=== PATIENT | female | born 1975 | race Caucasian/White ===

== ENCOUNTER 2016-07-31 20:09 | Emergency (ER) | payer OTHER ==
[2016-07-31 20:19] VITALS: RESP 18
[2016-07-31] MEDS ORDERED: KETOROLAC 30 MG/ML 1 ML VIAL IVP STA (20:40)
[2016-07-31] MEDS ORDERED: SODIUM CHLORIDE 0.9% 1,000 ML IV STA (20:40)
--- NOTE | 2016-07-31 20:47 | ED ---
Chest Pain HPI - General Chief Complaint: Chest Pain Stated Complaint: back and chest pain Time Seen by Provider: 07/31/16 20:20 Source: patient, RN notes reviewed Mode of arrival: wheelchair Limitations: no limitations - History of Present Illness Initial Comments: Is a 40-year-old female who states she had the onset after eating tonight around 5:30 PM of some left-sided chest pain and some bilateral upper to mid back pain. She states it was sharp in nature 9-10/10 severity it did not get any worse or better with movements or positional changes she's had no cough or phlegm production fevers chills or sweats. She states she's never had this before except for a couple days ago she had a shorter period time with similar pain. This time it is related to eating. She is a remote family history of heart disease she denies any personal history of heart disease lung disease she is nonsmoker. She has no ALLERGIES to medicines last missed her period was July 22 he denies any chance being . MD Complaint: chest pain, other - Related Data Home Medications Medication Instructions Recorded Confirmed Escitalopram [Lexapro] 20 mg PO DAILY 08/24/15 07/31/16 Diclofenac Potassium [Cataflam] 50 mg PO Q8H PRN 07/31/16 07/31/16 Multivitamins, Thera [Multivitamin 1 tab PO DAILY 07/31/16 07/31/16 (formulary)] Norgestimate-Ethinyl Estradiol 1 tab PO DAILY 07/31/16 07/31/16 [Ortho Tri-Cyclen Lo Tablet] Previous Rx's Medication Instructions Recorded Orphenadrine [Norflex] 100 mg PO Q12H #7 tablet.er 07/31/16 Allergies Allergy/AdvReac Type Severity Reaction Status Date / Time No Known Allergies Allergy Verified 07/31/16 21:03 Review of Systems ROS Statement: Those systems with pertinent positive or pertinent negative responses have been documented in the HPI. ROS Other: All systems not noted in ROS Statement are negative. EKG Findings - EKG Results: EKG: interpreted by KARYNA, sinus rhythm (Normal sinus rhythm a rate of 65. Interval 198 QRS duration 88 QT/QTC of 392/47 low-voltage QRS and no acute ST-T wave changes.) Past Medical History Past Medical History: No Reported History History of Any Multi-Drug Resistant Organisms: None Reported Past Surgical History: Tonsillectomy Past Psychological History: Anxiety, Depression Smoking Status: Former smoker Past Alcohol Use History: None Reported Past Drug Use History: None Reported General Exam - General Exam Comments Initial Comments: Is a well-developed well-nourished awake alert oriented x3 female Limitations: no limitations General appearance: alert, in no apparent distress Head exam: Present: atraumatic, normocephalic, normal inspection Eye exam: Present: normal appearance, PERRL, EOMI. Absent: scleral icterus, conjunctival injection, periorbital swelling ENT exam: Present: normal exam, mucous membranes moist Neck exam: Present: normal inspection. Absent: tenderness, meningismus, lymphadenopathy Respiratory exam: Present: normal lung sounds bilaterally. Absent: respiratory distress, wheezes, rales, rhonchi, stridor Cardiovascular Exam: Present: regular rate, normal rhythm, normal heart sounds. Absent: systolic murmur, diastolic murmur, rubs, gallop, clicks GI/Abdominal exam: Present: soft, normal bowel sounds, other (Obese abdomen). Absent: distended, tenderness, guarding, rebound, rigid Extremities exam: Present: normal inspection, full ROM, normal capillary refill. Absent: tenderness, pedal edema, joint swelling, calf tenderness Back exam: Present: normal inspection Neurological exam: Present: alert, oriented X3, CN II-XII intact Psychiatric exam: Present: normal affect, normal mood Skin exam: Present: warm, dry, intact, normal color. 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 The current presentation consistent with a musculoskeletal etiology of chest pain. Patient will be discharged she does have an adequate prescription for Cataflam at home replaced also some muscle relaxers she is accompanied doctor return when necessary Disposition Clinical Impression: Chest wall syndrome, Costalchondritis Disposition: HOME SELF-CARE Condition: Good Instructions: Costochondritis (ED), Musculoskeletal Pain (ED) Prescriptions: Orphenadrine [Norflex] 100 mg PO Q12H #7 tablet.er Referrals: Whit Henry MD [Primary Care Provider] - 1-2 days
[2016-07-31 20:57] LABS: Basophils # (A) 0.1 k/uL (0-0.2); Basophils % (A) 1 %; CH 29.5; CHCM 33.9; Eosinophils # (A) 0.2 k/uL (0-0.7); Eosinophils % (A) 1 %; HCT 39.1 % (34.0-46.0); HDW 2.58; HGB 13.1 gm/dL (11.4-16.0); Luc # (Auto) 0.33; Luc % (Auto) 2; Lymphocytes % (A) 35 %; MCH 29.2 pg (25.0-35.0); MCHC 33.4 g/dL (31.0-37.0); MCV 87.4 fL (80.0-100.0); Mean Platelet Volume 6.3; Monocytes # (A) 0.6 k/uL (0-1.0); Monocytes % (A) 4 %; Neutrophils # (A) 8.3 k/uL (1.3-7.7); Neutrophils % (A) 57 %; RBC 4.48 m/uL (3.80-5.40); WBC 14.4 k/uL (3.8-10.6); WBC (Perox) 14.34
[2016-07-31 21:01] LABS: ALT 57 U/L (9-52); AST 32 U/L (14-36); Alkaline Phosphatase 68 U/L (38-126); Amylase 68 U/L (30-110); Anion Gap 13 mmol/L; Blood Urea Nitrogen 18 mg/dL (7-17); Calcium 9.8 mg/dL (8.4-10.2); Carbon Dioxide 25 mmol/L (22-30); Chloride 104 mmol/L (98-107); Glucose 91 mg/dL (74-99); Magnesium 1.9 mg/dL (1.6-2.3); Non-African American GFR(MDRD) >60 (>60 ml/min/1.73 sqM); Potassium 3.9 mmol/L (3.5-5.1); Sodium 142 mmol/L (137-145); Total Bilirubin 0.5 mg/dL (0.2-1.3); Total Protein 7.5 g/dL (6.3-8.2)
--- NOTE | 2016-07-31 21:02 | XR ---
EXAMINATION TYPE: XR chest 2V DATE OF EXAM: 07/31/2016 8:53 PM COMPARISON: NONE HISTORY: Chest pain TECHNIQUE: Frontal and lateral views of the chest are obtained. FINDINGS: Heart and mediastinum are normal. Lungs are clear. Diaphragm is normal. Bony thorax appear s normal. IMPRESSION: Normal chest
[2016-07-31 21:06] LABS: Partial Thromboplastin Time 22.3 sec (22.0-30.0)
[2016-07-31 21:10] LABS: INR 0.9 (<1.1); Prothrombin Time 9.4 sec (9.0-12.0)
[2016-07-31 21:13] LABS: Creatine Kinase 64 U/L (30-135)
[2016-07-31 21:26] LABS: Creatine Kinase MB 0.5 ng/mL (0.0-2.4); Troponin I <0.012 ng/mL (0.000-0.034)
[2016-07-31 21:36] VITALS: BP 103/61; PULSE 68; TEMP 98.2
== END 2016-07-31 21:52 | disposition home or self-care (01) ==
LOC: EC 20:09
DX: M94.0 Chondrocostal junction syndrome [Tietze] (principal); M54.9 Dorsalgia, unspecified; F32.9 Major depressive disorder, single episode, unspecified; F41.9 Anxiety disorder, unspecified; Z87.891 Personal history of nicotine dependence; Z79.3 Long term (current) use of hormonal contraceptives; Z79.899 Other long term (current) drug therapy; Z82.49 Family history of ischemic heart disease and other diseases of the circulatory system
CPT/HCPCS: 36415; 93005; 85379; 83880; 80053; 82150; 82550; 82553; 83690; 83735; 84484; 85025; 85610; 85730; 71020; 99285; 96374; 96361; J1885

== ENCOUNTER 2016-08-07 19:44 | Inpatient (IN) | payer OTHER ==
[2016-08-07 21:08] LABS: Basophils # (A) 0.1 k/uL (0-0.2); Basophils % (A) 1 %; CH 29.2; CHCM 33.4; Eosinophils # (A) 0.2 k/uL (0-0.7); Eosinophils % (A) 2 %; HCT 39.7 % (34.0-46.0); HDW 2.74; Luc # (Auto) 0.22; Luc % (Auto) 1; Lymphocytes # (A) 4.7 k/uL (1.0-4.8); Lymphocytes % (A) 31 %; MCH 28.6 pg (25.0-35.0); MCHC 32.7 g/dL (31.0-37.0); MCV 87.6 fL (80.0-100.0); Mean Platelet Volume 6.1; Monocytes # (A) 0.5 k/uL (0-1.0); Monocytes % (A) 4 %; Neutrophils # (A) 9.5 k/uL (1.3-7.7); Neutrophils % (A) 62 %; RBC 4.53 m/uL (3.80-5.40); WBC 15.3 k/uL (3.8-10.6); WBC (Perox) 15.68
[2016-08-07 21:22] LABS: Amorphous Sediment,Urine Rare /hpf; Appearance,Urine Clear (Clear); Bacteria,Urine Occasional /hpf; Bilirubin,Urine Negative (Negative); Glucose,Urine (UA) Negative (Negative); Ketones,Urine Negative (Negative); Leukocyte Esterase,Urine Small (Negative); Mucus,Urine Rare /hpf; Nitrite,Urine Negative (Negative); PH, Urine 6.5 (5.0-8.0); Particle Count 1310; Protein,Urine Negative (Negative); RBC,Urine <1 /hpf (0-5); Specific Gravity,Urine 1.006 (1.001-1.035); Squamous Epithelial Cell,Urine <1 /hpf (0-4); UA Billing (MACRO vs. MICRO) MICRO; Urobilinogen,Urine <2.0 mg/dL (<2.0); WBC,Urine 1 /hpf (0-5)
[2016-08-07 21:23] LABS: ALT 45 U/L (9-52); AST 19 U/L (14-36); Alkaline Phosphatase 69 U/L (38-126); Amylase 71 U/L (30-110); Anion Gap 9 mmol/L; Blood Urea Nitrogen 11 mg/dL (7-17); Calcium 9.6 mg/dL (8.4-10.2); Carbon Dioxide 30 mmol/L (22-30); Chloride 103 mmol/L (98-107); Glucose 87 mg/dL (74-99); Non-African American GFR(MDRD) >60 (>60 ml/min/1.73 sqM); Potassium 4.2 mmol/L (3.5-5.1); Sodium 142 mmol/L (137-145); Total Bilirubin 0.3 mg/dL (0.2-1.3)
--- NOTE | 2016-08-07 21:57 | ED ---
Abdominal Pain HPI - General Source: patient, RN notes reviewed Mode of arrival: ambulatory Limitations: no limitations <Rakel Garnica - Last Filed: 08/07/16 23:00> <Ron Parra - Last Filed: 08/07/16 23:08> - General Chief Complaint: Abdominal Pain Stated Complaint: back & rib pain Time Seen by Provider: 08/07/16 20:19 - History of Present Illness Initial Comments: Patient is a 40-year-old female chief complaint of right upper quadrant rib pain that radiates her shoulders. Patient states that she's been having this off and on over the past few weeks. She reports that she was seen in the emergency department a week ago, diagnosed with muscle spasm. She reports taking muscle relaxants and it doesn't help. Patient reports that the pain always occurs after she eats. She denies any vomiting but feels nauseated. She states she's had some diarrhea as well. Patient reports that she's never had any surgeries. (Rakel Garnica) - Related Data Home Medications Medication Instructions Recorded Confirmed Escitalopram [Lexapro] 20 mg PO DAILY 08/24/15 08/07/16 Diclofenac Potassium [Cataflam] 50 mg PO Q8H PRN 07/31/16 08/07/16 Multivitamins, Thera [Multivitamin 1 tab PO DAILY 07/31/16 08/07/16 (formulary)] Norgestimate-Ethinyl Estradiol 1 tab PO HS 07/31/16 08/07/16 [Ortho Tri-Cyclen Lo Tablet] Previous Rx's Medication Instructions Recorded Orphenadrine [Norflex] 100 mg PO Q12H #7 tablet.er 07/31/16 Allergies Allergy/AdvReac Type Severity Reaction Status Date / Time No Known Allergies Allergy Verified 08/07/16 20:17 Review of Systems ROS Other: All systems not noted in ROS Statement are negative. <Rakel Garnica - Last Filed: 08/07/16 23:00> ROS Other: All systems not noted in ROS Statement are negative. <Ron Parra - Last Filed: 08/07/16 23:08> ROS Statement: Those systems with pertinent positive or pertinent negative responses have been documented in the HPI. Past Medical History Past Medical History: No Reported History History of Any Multi-Drug Resistant Organisms: None Reported Past Surgical History: Tonsillectomy Past Psychological History: Anxiety, Depression Smoking Status: Former smoker Past Alcohol Use History: None Reported Past Drug Use History: None Reported <Rakel Garnica - Last Filed: 08/07/16 23:00> General Exam Limitations: no limitations General appearance: alert, in no apparent distress Head exam: Present: atraumatic, normocephalic, normal inspection Eye exam: Present: normal appearance, PERRL, EOMI. Absent: scleral icterus, conjunctival injection, periorbital swelling ENT exam: Present: normal exam, mucous membranes moist Neck exam: Present: normal inspection. Absent: tenderness, meningismus, lymphadenopathy Respiratory exam: Present: normal lung sounds bilaterally. Absent: respiratory distress, wheezes, rales, rhonchi, stridor Cardiovascular Exam: Present: regular rate, normal rhythm, normal heart sounds. Absent: systolic murmur, diastolic murmur, rubs, gallop, clicks GI/Abdominal exam: Present: soft, tenderness (Patient has some tenderness in the right upper quadrant. Positive Paul sign.), normal bowel sounds. Absent : distended, guarding, rebound, rigid Extremities exam: Present: normal inspection, full ROM, normal capillary refill. Absent: tenderness, pedal edema, joint swelling, calf tenderness Back exam: Present: normal inspection Neurological exam: Present: alert, oriented X3, CN II-XII intact Psychiatric exam: Present: normal affect, normal mood Skin exam: Present: warm, dry, intact, normal color. Absent: rash <Rakel Garnica - Last Filed: 08/07/16 23:00> <Ron Parra - Last Filed: 08/07/16 23:08> - General Exam Comments Initial Comments: Pleasant 32-year-old female. No distress. (Rakel Garnica) Medical Decision Making - Lab Data Result diagrams: 08/07/16 20:50 08/07/16 20:50 - Radiology Data Radiology results: report reviewed <Rakel Garnica - Last Filed: 08/07/16 23:00> - Lab Data Result diagrams: 08/07/16 20:50 08/07/16 20:50 <Ron Parra - Last Filed: 08/07/16 23:08> - Medical Decision Making Is a pleasant 40-year-old female chief complaint of intermittent right upper quadrant abdominal pain for the past 3 weeks. Patient states that occurs approximately 20 minutes after eating. She states it radiates up towards her shoulder blades. She was diagnosed with a muscle spasm but doesn't get any better with muscle relaxers. Patient states that she's felt chilled no fever. Patient's laboratory was reviewed she does have evidence of leukocytosis of 15.4. All her liver enzymes are within normal limits. Patient's right upper quadrant ultrasound did show evidence of cholelithiasis and possible clue acute cholecystitis. Patient will be started on Zosyn antibiotic. Discussed case with Dr. Parra. Patient will need to be admitted to have her gallbladder removed. (Rakel Garnica) Medical decision-making. The patient's ultrasound was positive for cholelithiasis or cholecystitis. White count 15.5. The patient was started on Zosyn. I discussed the case with Dr. Maddox on-call for Dr. Henry. Patient be admitted his service with request for surgical consultation from Dr. Ferrera. Dr. Russo was notified as he is on-call for Dr. Ferrera. Dr. Parra (Ron Parra) - Lab Data Lab Results 08/07/16 08/07/16 08/07/16 Range/Units 20:50 20:50 20:50 WBC 15.3 H (3.8-10.6) k/uL RBC 4.53 (3.80-5.40) m/uL Hgb 13.0 (11.4-16.0) gm/dL Hct 39.7 (34.0-46.0) % MCV 87.6 (80.0-100.0) fL MCH 28.6 (25.0-35.0) pg MCHC 32.7 (31.0-37.0) g/dL RDW 14.0 (11.5-15.5) % Plt Count 462 H (150-450) k/uL Neutrophils % 62 % Lymphocytes % 31 % Monocytes % 4 % Eosinophils % 2 % Basophils % 1 % Neutrophils # 9.5 H (1.3-7.7) k/uL Lymphocytes # 4.7 (1.0-4.8) k/uL Monocytes # 0.5 (0-1.0) k/uL Eosinophils # 0.2 (0-0.7) k/uL Basophils # 0.1 (0-0.2) k/uL Sodium 142 (137-145) mmol/L Potassium 4.2 (3.5-5.1) mmol/L Chloride 103 (98-107) mmol/L Carbon Dioxide 30 (22-30) mmol/L Anion Gap 9 mmol/L BUN 11 (7-17) mg/dL Creatinine 0.70 (0.52-1.04) mg/dL Est GFR (MDRD) Af Amer >60 (>60 ml/min/1.73 sqM) Est GFR (MDRD) Non-Af >60 (>60 ml/min/1.73 sqM) Glucose 87 (74-99) mg/dL Calcium 9.6 (8.4-10.2) mg/dL Total Bilirubin 0.3 (0.2-1.3) mg/dL AST 19 (14-36) U/L ALT 45 (9-52) U/L Alkaline Phosphatase 69 (38-126) U/L Total Protein 7.0 (6.3-8.2) g/dL Albumin 3.9 (3.5-5.0) g/dL Amylase 71 (30-110) U/L Lipase 80 (23-300) U/L Urine Color Urine Appearance (Clear) Urine pH (5.0-8.0) Ur Specific Beeson (1.001-1.035) Urine Protein (Negative) Urine Glucose (UA) (Negative) Urine Ketones (Negative) Urine Blood (Negative) Urine Nitrite (Negative) Urine Bilirubin (Negative) Urine Urobilinogen (<2.0) mg/dL Ur Leukocyte Esterase (Negative) Urine RBC (0-5) /hpf Urine WBC (0-5) /hpf Ur Squamous Epith Cells (0-4) /hpf Amorphous Sediment (None) /hpf Urine Bacteria (None) /hpf Urine Mucus (None) /hpf Urine HCG, Qual Not Detected (Not Detectd) 08/07/16 Range/Units 20:50 WBC (3.8-10.6) k/uL RBC (3.80-5.40) m/uL Hgb (11.4-16.0) gm/dL Hct (34.0-46.0) % MCV (80.0-100.0) fL MCH (25.0-35.0) pg MCHC (31.0-37.0) g/dL RDW (11.5-15.5) % Plt Count (150-450) k/uL Neutrophils % % Lymphocytes % % Monocytes % % Eosinophils % % Basophils % % Neutrophils # (1.3-7.7) k/uL Lymphocytes # (1.0-4.8) k/uL Monocytes # (0-1.0) k/uL Eosinophils # (0-0.7) k/uL Basophils # (0-0.2) k/uL Sodium (137-145) mmol/L Potassium (3.5-5.1) mmol/L Chloride (98-107) mmol/L Carbon Dioxide (22-30) mmol/L Anion Gap mmol/L BUN (7-17) mg/dL Creatinine (0.52-1.04) mg/dL Est GFR (MDRD) Af Amer (>60 ml/min/1.73 sqM) Est GFR (MDRD) Non-Af (>60 ml/min/1.73 sqM) Glucose (74-99) mg/dL Calcium (8.4-10.2) mg/dL Total Bilirubin (0.2-1.3) mg/dL AST (14-36) U/L ALT (9-52) U/L Alkaline Phosphatase (38-126) U/L Total Protein (6.3-8.2) g/dL Albumin (3.5-5.0) g/dL Amylase (30-110) U/L Lipase (23-300) U/L Urine Color Light Yellow Urine Appearance Clear (Clear) Urine pH 6.5 (5.0-8.0) Ur Specific Beeson 1.006 (1.001-1.035) Urine Protein Negative (Negative) Urine Glucose (UA) Negative (Negative) Urine Ketones Negative (Negative) Urine Blood Negative (Negative) Urine Nitrite Negative (Negative) Urine Bilirubin Negative (Negative) Urine Urobilinogen <2.0 (<2.0) mg/dL Ur Leukocyte Esterase Small H (Negative) Urine RBC <1 (0-5) /hpf Urine WBC 1 (0-5) /hpf Ur Squamous Epith Cells <1 (0-4) /hpf Amorphous Sediment Rare H (None) /hpf Urine Bacteria Occasional H (None) /hpf Urine Mucus Rare H (None) /hpf Urine HCG, Qual (Not Detectd) - Radiology Data Right upper quadrant ultrasound shows evidence of cholelithiasis and to correlate with possible cholecystitis. Probable fatty infiltration of the liver , hepatomegaly. Patient has 3 stones each measuring approximately 1.5 cm. Thickened gallbladder wall. Evidence is positive for Paul sign. Common bile duct was within normal limits. KUB is reviewed as negative for any acute process. (Rakel Garnica) Disposition Time of Disposition: 22:33 <Rakel Garnica - Last Filed: 08/07/16 23:00> <Ron Parra - Last Filed: 08/07/16 23:08> Clinical Impression: Acute cholecystitis Disposition: ADMITTED IP TO THIS HOSP Condition: Good Referrals: Whit Henry MD [Primary Care Provider] - 1-2 days
--- NOTE | 2016-08-07 22:02 | US ---
EXAMINATION TYPE: US gallbladder DATE OF EXAM: 08/07/2016 9:52 PM COMPARISON: NONE CLINICAL HISTORY: Pain. Epigastric pain, RUQ pain, nausea x 3 weeks. EXAM MEASUREMENTS: Liver Length: 20.3 cm Gallbladder Wall: 0.4 cm CBD: 0.3 cm Right Kidney: 12.5 x 5.2 x 5.2 cm Pancreas: visualized portions appear wnl, tail obscured by overlying bowel content Liver: enlarged and there is coarse echotexture Gallbladder: 3 stones = 1.5cm, 1.4cm, and 1.4cm with sludge. Thickened GB wall Evidence for sonographic Paul's sign: Yes CBD: visualized portion appears wnl Right Kidney: no evidence of hydronephrosis or mass IMPRESSION: Cholelithiasis, correlate for possible cholecystitis. Probable fatty infiltration of live r, hepatomegaly.
[2016-08-07] MEDS ORDERED: PIPERACILLIN-TAZOBACTAM 3.375 GM in DEXTROSE/WATER 1 50ML.BAG IVPB STA (22:12)
--- NOTE | 2016-08-07 22:23 | XR ---
EXAM: XR Abdomen, 1 View. CLINICAL HISTORY: Reason: abdominal pain TECHNIQUE: Frontal supine view of the abdomen/pelvis. COMPARISON: No relevant prior studies available. FINDINGS: Gastrointestinal tract: Mild to moderate amount of colonic stool throughout. No dilation. No free air seen. Other: Punctate inferior left pelvic calcification, most likely a phlebolith. Bones/joints: Unremarkable. IMPRESSION: No acute findings.
[2016-08-07] MEDS ORDERED: NALOXONE 0.4 MG/ML 1 ML VIAL IV PRN (22:33)
[2016-08-07] MEDS ORDERED: ACETAMINOPHEN TAB 325 MG TAB PO PRN (22:33)
[2016-08-07] MEDS ORDERED: ONDANSETRON 4 MG/2 ML VIAL IVP PRN (22:33)
[2016-08-07] MEDS ORDERED: KETOROLAC 30 MG/ML 1 ML VIAL IVP PRN (22:33)
[2016-08-07] MEDS: SODIUM CHLORIDE 0.9% 1,000 ML IV SCH (22:42)
[2016-08-07 23:55] VITALS: BMI 36.0
[2016-08-08] MEDS: PIPERACILLIN-TAZOBACTAM 3.375 GM in DEXTROSE/WATER 1 50ML.BAG IVPB SCH ×2 (08:42→16:47)
[2016-08-08] MEDS: PANTOPRAZOLE 40 MG/10 ML VIAL IV SCH (08:42)
[2016-08-08] MEDS: SODIUM CHLORIDE 0.9% 1,000 ML IV SCH ×2 (12:30→23:18)
--- NOTE | 2016-08-08 12:53 | P.HPIM ---
History of Present Illness Chief Complaint: Abdominal pain This is a 40-year-old female who presented to the emergency room with worsening right upper quadrant pain. Patient said that her pain started approximately 3 weeks ago and is being getting progressively worse. She described her pain as sharp that starts in her back and go around to her right flank and right upper quadrant area. She described her pain as sharp and 10 out of 10 in severity. Her pain is usually triggered after food and in particular greasy/fatty foods. She does report nausea but no vomiting. She is otherwise having regular bowel movements. There is no radiation for her pain. She was evaluated in the emergency room and an abdominal ultrasound showed evidence of cholelithiasis with possible cholecystitis. Patient was admitted to the hospital and is currently nothing by mouth awaiting general surgery evaluation Review of Systems Review of system: 14 points review of systems were obtained and were negative except to what were mentioned in the HPI. Past Medical History Past Medical History: No Reported History History of Any Multi-Drug Resistant Organisms: None Reported Past Surgical History: Tonsillectomy Past Anesthesia/Blood Transfusion Reactions: No Reported Reaction Past Psychological History: Anxiety, Depression Smoking Status: Former smoker Past Alcohol Use History: None Reported Past Drug Use History: None Reported - Past Family History Father Family Medical History: CVA/TIA, Diabetes Mellitus Mother Additional Family Medical History / Comment(s): HEART ARRYTHMIA Medications and Allergies Home Medications Medication Instructions Recorded Confirmed Type Escitalopram [Lexapro] 20 mg PO DAILY 08/24/15 08/07/16 History Diclofenac Potassium [Cataflam] 50 mg PO Q8H PRN 07/31/16 08/07/16 History Multivitamins, Thera [Multivitamin 1 tab PO DAILY 07/31/16 08/07/16 History (formulary)] Norgestimate-Ethinyl Estradiol 1 tab PO HS 07/31/16 08/07/16 History [Ortho Tri-Cyclen Lo Tablet] Allergies Allergy/AdvReac Type Severity Reaction Status Date / Time No Known Allergies Allergy Verified 08/07/16 20:17 Physical Exam Vitals: Vital Signs Temp Pulse Pulse Resp BP Pulse Ox 08/08/16 07:00 97.6 F 70 16 116/73 95 08/08/16 00:00 97.6 F 82 16 125/77 97 Intake and Output 08/07/16 08/08/16 08/08/16 22:59 06:59 14:59 Intake Total 600 Balance 600 Intake: Intake, IV Titration 600 Amount Sodium Chloride 0.9% 1, 600 000 ml @ 100 mls/hr IV . Q10H [facility] Rx#:[id number] Other: Weight 104.326 kg General: The patient is awake and alert, in no distress, and does not appear acutely ill. Eye: extra-ocular movements are intact; there is normal conjunctiva bilaterally. . Neck: The neck is supple, there is no tenderness or JVD. Cardiovascular: Normal S1-S2, no S3-S4, no murmurs. Respiratory: Lungs clear to auscultation bilaterally with no wheezes rhonchi or rales. Gastrointestinal: Abdomen is soft, there is tenderness to palpation in the right upper quadrant area Musculoskeletal: Normal ROM, no tenderness, There is no pedal edema. Neurological: There are no obvious motor or sensory deficits. Speech is normal. Skin: Skin is warm and dry and no rashes or lesions are noted. Results CBC & Chem 7: 08/07/16 20:50 08/07/16 20:50 Thrombosis Risk Factor Assmnt - Choose All That Apply Each Factor Represents 1 point: Minor surgery planned, Obesity (BMI >25), Oral contraceptives or hormone replacement therapy Thrombosis Risk Factor Assessment Total Risk Factor Score: 3 Thrombosis Risk Factor Assessment Level: Moderate Risk Assessment and Plan Plan: 1. Right upper quadrant pain 2. Cholelithiasis with possible cholecystitis 3. Major depressive disorder We will continue IV fluid hydration, antiemetic, and pain control. Awaiting general surgery evaluation for possible cholecystectomy either during this admission or on an elective basis. All patient's questions answered to her satisfaction.
--- NOTE | 2016-08-08 15:58 | P.GSCN ---
History of Present Illness Consult date: 08/08/16 Reason for Consult: Acute cholecystitis History of present illness: Patient over the last 3 weeks has had ongoing right upper quadrant pain with radiation of the back. This is aggravated by any types of foods at this point. Some nausea but no vomiting. Also having some diarrhea issues up to 6 times per day. Denies fevers or chills. No coffee colored urine or jaundice in this. No fevers. No history of similar events in the past. Her white blood cell count is elevated. Her liver enzymes are normal. Her ultrasound shows gallstones with a thickened gallbladder wall and a positive Paul sign. Review of Systems The patient denies any acute changes in his vision or hearing, no dysphagia or odynophagia, no chest pain or shortness of breath, no dysuria or hematuria, no headache, no runny nose, no rectal bleeding or melena, no unexplained weight loss Past Medical History Past Medical History: No Reported History History of Any Multi-Drug Resistant Organisms: None Reported Past Surgical History: Tonsillectomy Past Anesthesia/Blood Transfusion Reactions: No Reported Reaction Past Psychological History: Anxiety, Depression Smoking Status: Former smoker Past Alcohol Use History: None Reported Past Drug Use History: None Reported - Past Family History Father Family Medical History: CVA/TIA, Diabetes Mellitus Mother Additional Family Medical History / Comment(s): HEART ARRYTHMIA Medications and Allergies Home Medications Medication Instructions Recorded Confirmed Type Escitalopram [Lexapro] 20 mg PO DAILY 08/24/15 08/07/16 History Diclofenac Potassium [Cataflam] 50 mg PO Q8H PRN 07/31/16 08/07/16 History Multivitamins, Thera [Multivitamin 1 tab PO DAILY 07/31/16 08/07/16 History (formulary)] Norgestimate-Ethinyl Estradiol 1 tab PO HS 07/31/16 08/07/16 History [Ortho Tri-Cyclen Lo Tablet] Allergies Allergy/AdvReac Type Severity Reaction Status Date / Time No Known Allergies Allergy Verified 08/07/16 20:17 Surgical - Exam Vital Signs Temp Pulse Resp BP Pulse Ox 97.7 F 73 18 131/85 95 08/07/16 19:49 08/07/16 19:49 08/07/16 19:49 08/07/16 19:49 08/07/16 19:49 Physical exam: General: Well-developed, well-nourished HEENT: Normocephalic, sclerae nonicteric Abdomen: Mild right upper quadrant tenderness, nondistended Extremities: No edema Neuro: Alert and oriented Results - Labs 08/07/16 20:50 08/07/16 20:50 Assessment and Plan (1) Acute cholecystitis Narrative/Plan: Continue IV antibiotics. Will proceed with cholecystectomy. Risks of bleeding , infection, bile leak, bile duct injury, retained common bile duct stone, chronic diarrhea, persistent pain, conversion to an open procedure, and anesthesia-related complications were discussed. She understands and wishes to proceed per Status: Acute
[2016-08-08] MEDS ORDERED: HYDROmorphone 1 MG/ML 1 ML SYRINGE IVP PRN (16:29)
[2016-08-09] MEDS: PIPERACILLIN-TAZOBACTAM 3.375 GM in DEXTROSE/WATER 1 50ML.BAG IVPB SCH ×4 (00:11→23:37)
[2016-08-09] MEDS: SODIUM CHLORIDE 0.9% 1,000 ML IV SCH (06:27)
[2016-08-09 07:26] LABS: Basophils # (A) 0.1 k/uL (0-0.2); Basophils % (A) 1 %; CHCM 33.6; Eosinophils # (A) 0.2 k/uL (0-0.7); Eosinophils % (A) 2 %; HCT 35.3 % (34.0-46.0); HDW 2.86; HGB 11.9 gm/dL (11.4-16.0); Luc % (Auto) 2; Lymphocytes # (A) 3.4 k/uL (1.0-4.8); Lymphocytes % (A) 32 %; MCH 29.3 pg (25.0-35.0); MCHC 33.7 g/dL (31.0-37.0); MCV 86.8 fL (80.0-100.0); Mean Platelet Volume 6.3; Monocytes # (A) 0.3 k/uL (0-1.0); Monocytes % (A) 3 %; Neutrophils # (A) 6.2 k/uL (1.3-7.7); Neutrophils % (A) 60 %; RBC 4.07 m/uL (3.80-5.40); RDW 13.7 % (11.5-15.5); WBC 10.4 k/uL (3.8-10.6); WBC (Perox) 9.91
[2016-08-09 07:35] LABS: ALT 42 U/L (9-52); AST 19 U/L (14-36); Alkaline Phosphatase 54 U/L (38-126); Anion Gap 7 mmol/L; Blood Urea Nitrogen 10 mg/dL (7-17); Calcium 9.2 mg/dL (8.4-10.2); Carbon Dioxide 28 mmol/L (22-30); Chloride 105 mmol/L (98-107); Glucose 92 mg/dL (74-99); Non-African American GFR(MDRD) >60 (>60 ml/min/1.73 sqM); Potassium 4.2 mmol/L (3.5-5.1); Sodium 140 mmol/L (137-145); Total Bilirubin 0.8 mg/dL (0.2-1.3); Total Protein 6.4 g/dL (6.3-8.2)
[2016-08-09] MEDS: PANTOPRAZOLE 40 MG/10 ML VIAL IV SCH (08:19)
[2016-08-09] MEDS ORDERED: IV FLUID CONTINUATION 1,000 ML IV ONE (10:48)
[2016-08-09] MEDS ORDERED: ONDANSETRON 4 MG/2 ML VIAL IVP ONE (10:58)
[2016-08-09] MEDS ORDERED: DEXAMETHASONE SOD PHOSPHATE 10 MG/ML 1 ML VIAL IV ONE (11:02)
[2016-08-09] MEDS ORDERED: MIDAZOLAM 2 MG/2 ML VIAL ONE (11:25)
[2016-08-09] MEDS ORDERED: HYDROmorphone (PF) 1 MG/ML ONE (11:25)
[2016-08-09] MEDS ORDERED: LABETALOL 5 MG/ML VIAL MDV ONE (11:25)
[2016-08-09] MEDS ORDERED: ROCURONIUM BROMIDE 10 MG/ML 10 ML VIAL IV ONE (11:25)
[2016-08-09] MEDS ORDERED: fentaNYL (PF) 50 MCG/ML 2 ML AMP ONE (11:25)
[2016-08-09] MEDS ORDERED: NEOSTIGMINE 1 MG/ML 10 ML VIAL ONE (11:25)
[2016-08-09] MEDS ORDERED: LIDOCAINE 1% INJ 10MG/ML (20 ML MDV) ONE (11:25)
[2016-08-09] MEDS ORDERED: PROPOFOL 10 MG/ML 20 ML VIAL IV ONE (11:25)
[2016-08-09] MEDS ORDERED: GLYCOPYRROLATE 0.2 MG/ML 2 ML VIAL ONE (11:25)
[2016-08-09] MEDS ORDERED: SUCCINYLCHOLINE CHLORIDE 100 MG/5 ML SYR IV ONE (11:25)
[2016-08-09] MEDS ORDERED: HEPARIN SODIUM,PORCINE 5,000 UNIT/ML 1 ML VIAL SQ ONE (11:27)
[2016-08-09] MEDS ORDERED: BUPIVACAIN-EPI 0.25%-1:200,000 30 ML VIAL SQ ONE ×2 (11:56)
--- NOTE | 2016-08-09 12:53 | P.PCN ---
Date of Procedure: 08/09/16 Procedure(s) Performed: PREOPERATIVE DIAGNOSIS: Acute calculus cholecystitis POSTOPERATIVE DIAGNOSIS: Same PROCEDURE: Laparoscopic cholecystectomy SURGEON: Chantelle EBL: 25 mL ANESTHESIA: Gen. COMPLICATIONS: None OPERATIVE PROCEDURE: The patient was brought and placed on the operating room table in the supine position. The patient was placed under general anesthesia at that time. The abdomen was prepped and draped in the usual sterile fashion. A small vertical infraumbilical incision was made. The fascia was grasped with the Greg forceps. The fascia was retracted anteriorly. The Veress needle was advanced into the peritoneal cavity. The saline drop test was normal. Insufflation took place up to 15 mmHg. A 5 mm optical trocar was advanced and the peritoneal cavity. 2 additional 5 mm trochars were placed in the right upper quadrant under direct visualization. A 12 mm trocar was advanced into the epigastric incision site. The gallbladder was acutely inflamed and distended. It was still able to be grasped with our graspers without aspiration. The gallbladder was retracted superiorly and laterally. The peritoneum overlying the infundibulum was bluntly dissected. The patient's cystic duct was visualized. The junction between the cystic duct common and hepatic duct was identified. The cystic duct was then divided after placement of 3 12 mm clips on the patient's side and one on the specimen side. The cystic artery was identified and clipped as well. The patient had a fairly vascular gallbladder bed. There were 2 prominent branches of the cystic artery that were running parallel with the posterior wall the gallbladder. These were individually clipped. The gallbladder was then removed from the liver bed using electrocautery. The gallbladder was quite adherent to the liver bed. The gallbladder was then removed from the epigastric trocar site with an Endo Catch bag. The gallbladder fossa was irrigated with saline. There was no evidence of any bleeding or biliary drainage seen. The trochars were then removed. The fascia at the 12 millimeter site was closed using a running 0 Vicryl stitch. The skin at all 4 sites was closed using a 4-0 Monocryl stitch. At the end of this procedure the sponge and needle counts were correct. DISPOSITION: Stable to the recovery room
--- NOTE | 2016-08-09 14:37 | P.PN ---
Subjective patient is scheduled for OR today Objective - Vital Signs Vital signs: Vital Signs Temp 97.4 F L 08/09/16 12:53 Pulse 79 08/09/16 13:38 Resp 16 08/09/16 13:38 BP 129/76 08/09/16 13:38 Pulse Ox 93 L 08/09/16 13:38 Intake & Output 08/08/16 08/09/16 08/09/16 18:59 06:59 18:59 Intake Total 800 1400 1000 Output Total 25 Balance 800 1400 975 Intake: IV 800 1100 1000 Sodium Chloride 0.9% 1, 800 1100 000 ml @ 100 mls/hr IV . Q10H WHIT Rx#:[id number] Intake, IV Titration 100 Amount Piperacillin-Tazobactam 3 100 .375 gm In Dextrose/Water 1 50ml.bag @ 12.5 mls/hr IVPB Q8HR WHIT Rx#: [id number] Oral 200 Output: Estimated Blood Loss 25 Other: Voiding Method Toilet # Voids 2 1 - Labs CBC & Chem 7: 08/09/16 06:49 08/09/16 06:49 Labs: Abnormal Lab Results - Last 24 Hours (Table) 08/09/16 Range/Units 06:49 Albumin 3.4 L (3.5-5.0) g/dL Assessment and Plan Plan: 1. acute cholecystitis 2. Major depressive disorder We will continue IV fluid hydration, IV antibiotic,antiemetic, and pain control. patient is scheduled forlaparoscopic cholecystectomy today
[2016-08-09] MEDS: HYDROcodone/APAP 5-325MG 1 EACH TAB PO PRN ×3 (15:01→23:36)
[2016-08-10] MEDS: SODIUM CHLORIDE 0.9% 1,000 ML IV SCH ×2 (01:58→06:18)
[2016-08-10] MEDS: HYDROcodone/APAP 5-325MG 1 EACH TAB PO PRN ×2 (06:01→10:27)
[2016-08-10 07:12] VITALS: BP 112/62; PULSE 71; RESP 16; TEMP 98
[2016-08-10] MEDS: PANTOPRAZOLE 40 MG/10 ML VIAL IV SCH (08:28)
[2016-08-10] MEDS: PIPERACILLIN-TAZOBACTAM 3.375 GM in DEXTROSE/WATER 1 50ML.BAG IVPB SCH (08:28)
--- NOTE | 2016-08-10 10:05 | P.PN ---
Subjective Principal diagnosis: Acute cholecystitis Patient doing well today. Pain is much improved. She is tolerating her diet. Hoping to go home today. Objective - Vital Signs Vital signs: Vital Signs Temp 98 F 08/10/16 07:00 Pulse 71 08/10/16 07:00 Resp 16 08/10/16 07:00 BP 112/62 08/10/16 07:00 Pulse Ox 93 L 08/10/16 07:00 Intake & Output 08/09/16 08/10/16 08/10/16 18:59 06:59 18:59 Intake Total 1600 1500 Output Total 25 Balance 1575 1500 Intake: IV 1600 1100 Sodium Chloride 0.9% 1, 600 1100 000 ml @ 100 mls/hr IV . Q10H WHIT Rx#:[id number] Intake, IV Titration 50 Amount Piperacillin-Tazobactam 3 50 .375 gm In Dextrose/Water 1 50ml.bag @ 12.5 mls/hr IVPB Q8HR WHIT Rx#: [id number] Oral 350 Output: Estimated Blood Loss 25 Other: Voiding Method Toilet # Voids 1 2 - Exam Abdomen: Soft, nondistended, mild incisional tenderness, dressings intact - Labs CBC & Chem 7: 08/09/16 06:49 08/09/16 06:49 Assessment and Plan (1) Acute cholecystitis Narrative/Plan: Slowly advance diet. May discharge today from my standpoint. Follow-up in the office 1 week. Status: Acute
--- NOTE | 2016-08-10 11:56 | P.DS ---
Providers Date of admission: 08/07/16 22:44 Expected date of discharge: 08/10/16 Attending physician: Greer Maddox Consults: 08/07/16 22:51 Consult Physician Stat Consulting Provider: Domenico Lockhart Consult Reason/Comments: Acute cholecystitis Do you want consulting provider notified?: Yes, Notify in am Primary care physician: Whit Henry Hospital Course: This is a 40-year-old female who presented to the hospital originally with a right upper quadrant pain. Patient was evaluated in the emergency room and underwent an ultrasound showing evidence of cholelithiasis with cholecystitis. Patient was admitted and seen and evaluated by general surgery. She underwent laparoscopic cholecystectomy and tolerated the procedure well. On the day of discharge her pain was well-controlled. She was passing gas and tolerating oral diet with no difficulty. She will be discharged home in a stable condition. She will follow up as directed. Patient Condition at Discharge: Good Plan - Discharge Summary New Discharge Prescriptions: Hydrocodone/Acetaminophen [[place] 5-325] 1 - 2 each PO Q4HR PRN #30 tab PRN Reason: pain Discharge Medication List Escitalopram [Lexapro] 20 mg PO DAILY 08/24/15 [History] Diclofenac Potassium [Cataflam] 50 mg PO Q8H PRN 07/31/16 [History] Multivitamins, Thera [Multivitamin (formulary)] 1 tab PO DAILY 07/31/16 [History ] Norgestimate-Ethinyl Estradiol [Ortho Tri-Cyclen Lo Tablet] 1 tab PO HS [History] Orphenadrine [Norflex] 100 mg PO Q12H #7 tablet.er 07/31/16 [Rx] Hydrocodone/Acetaminophen [[place] 5-325] 1 - 2 each PO Q4HR PRN #30 tab 08/09/16 [Rx] Follow up Appointment(s)/Referral(s): Domenico Lockhart MD [Medical Doctor] - 08/17/16 1:00 pm Whit Henry MD [Primary Care Provider] - 08/12/16 1:15 pm
== END 2016-08-10 13:11 | disposition home or self-care (01) | DRG 419 ==
LOC: EC 19:44 → 3SUR 22:44
PROVIDERS: ADMIT Internal Medicine; ATTEND Internal Medicine
PROC: 0FT44ZZ Resection of Gallbladder, Percutaneous Endoscopic Approach (ICD-10-PCS; principal; 2016-08-09 11:30)
DX: K80.00 Calculus of gallbladder with acute cholecystitis without obstruction (principal); F41.9 Anxiety disorder, unspecified; F32.9 Major depressive disorder, single episode, unspecified; Z87.891 Personal history of nicotine dependence; Z79.899 Other long term (current) drug therapy
CPT/HCPCS: 36415; 74000; 76705; 80053; 81001; 81025; 82150; 83690; 85025; 88304; 96365; 99285

== ENCOUNTER 2018-05-01 08:14 | Emergency (ER) | payer OTHER ==
--- NOTE | 2018-05-01 08:33 | ED ---
General Adult HPI - General Chief complaint: Abdominal Pain Stated complaint: abd pain Source: patient Mode of arrival: ambulatory Limitations: no limitations - Related Data Home Medications Medication Instructions Recorded Confirmed Escitalopram [Lexapro] 20 mg PO HS 08/24/15 05/01/18 Alondra 24 Fe 1 tab PO HS 05/01/18 05/01/18 Allergies Allergy/AdvReac Type Severity Reaction Status Date / Time No Known Allergies Allergy Verified 05/01/18 08:57 Review of Systems ROS Statement: Those systems with pertinent positive or pertinent negative responses have been documented in the HPI. ROS Other: All systems not noted in ROS Statement are negative. Past Medical History Past Medical History: No Reported History History of Any Multi-Drug Resistant Organisms: None Reported Past Surgical History: Cholecystectomy, Tonsillectomy Past Anesthesia/Blood Transfusion Reactions: No Reported Reaction Past Psychological History: Anxiety, Depression Smoking Status: Former smoker Past Alcohol Use History: None Reported Past Drug Use History: None Reported - Past Family History Father Family Medical History: CVA/TIA, Diabetes Mellitus Mother Additional Family Medical History / Comment(s): HEART ARRYTHMIA General Exam Limitations: no limitations Course Vital Signs 05/01/18 08:16 Temperature 98.8 F Pulse Rate 78 Respiratory 18 Rate Blood Pressure 138/88 O2 Sat by Pulse 99 Oximetry Medical Decision Making - Medical Decision Making Dictation was produced using [employer] dictation software. please excuse any grammatical, word or spelling errors. Chief Complaint: 42-year-old female with months and months of pelvic pain History of Present Illness: Patient is a 42-year-old female with past medical history of obesity. She she was seen initially by her primary care physician. Her primary care physician did a Pap smear. He referred her to [facility] however they did not accept her insurance. She states she is sick of her symptoms causing her to come to the emergency department today. Patient states she's been having a lot of constitutional symptoms including fatigue, intermittent bouts of constipation and diarrhea. She reports history of cholecystectomy and tonsillectomy. She has history of ovarian cyst. The ROS documented in this emergency department record has been reviewed and confirmed by me. Those systems with pertinent positive or negative responses have been documented in the HPI. All other systems are other negative and/or noncontributory. PHYSICAL EXAM: General Impression: Alert and oriented x3, not in acute distress HEENT: Normocephalic atraumatic, extra-ocular movements intact, pupils equal and reactive to light bilaterally, mucous membranes moist. Cardiovascular: Heart regular rate and rhythm, S1&S2 audible, no murmurs, rubs or gallops Chest: Lungs clear to auscultation bilaterally, no rhonchi, no wheeze, no rales Abdomen: Bowel sounds present, abdomen soft, non-tender, non-distended, no organomegaly Musculoskeletal: Pulses present and equal in all extremities, no peripheral edema Motor: Power 5/5 bilaterally, no focal deficits noted Neurological: CN II-XII grossly intact, no focal motor or sensory deficits noted Skin: Intact with no visualized rashes Psych: Normal affect and mood ED course: 42-year-old female with chief complaint of several months of pelvic pain. Vital signs upon arrival are within acceptable limits.Laboratory evaluation obtained. CBC, metabolic panel unremarkable. Urinalysis shows 7 white blood cells. Urine sent for culture. Transvaginal ultrasound shows uterine fibroids. TB shows no acute processes. Discussed these findings with patient. Patient told to follow up with [employer]. - Lab Data Result diagrams: 05/01/18 09:27 05/01/18 09:27 Lab Results 05/01/18 05/01/18 05/01/18 Range/Units 09:27 09:27 09:27 WBC 11.7 H (3.8-10.6) k/uL RBC 4.55 (3.80-5.40) m/uL Hgb 12.3 (11.4-16.0) gm/dL Hct 37.7 (34.0-46.0) % MCV 82.9 (80.0-100.0) fL MCH 27.1 (25.0-35.0) pg MCHC 32.7 (31.0-37.0) g/dL RDW 14.7 (11.5-15.5) % Plt Count 402 (150-450) k/uL Neutrophils % 56 % Lymphocytes % 36 % Monocytes % 4 % Eosinophils % 2 % Basophils % 1 % Neutrophils # 6.6 (1.3-7.7) k/uL Lymphocytes # 4.3 (1.0-4.8) k/uL Monocytes # 0.4 (0-1.0) k/uL Eosinophils # 0.2 (0-0.7) k/uL Basophils # 0.1 (0-0.2) k/uL Sodium (137-145) mmol/L Potassium (3.5-5.1) mmol/L Chloride (98-107) mmol/L Carbon Dioxide (22-30) mmol/L Anion Gap mmol/L BUN (7-17) mg/dL Creatinine (0.52-1.04) mg/dL Est GFR (CKD-EPI)AfAm (>60 ml/min/1.73 sqM) Est GFR (CKD-EPI)NonAf (>60 ml/min/1.73 sqM) Glucose (74-99) mg/dL Calcium (8.4-10.2) mg/dL Total Bilirubin (0.2-1.3) mg/dL AST (14-36) U/L ALT (9-52) U/L Alkaline Phosphatase (38-126) U/L Total Protein (6.3-8.2) g/dL Albumin (3.5-5.0) g/dL TSH (0.465-4.680) mIU/L Urine Color Yellow Urine Appearance Cloudy H (Clear) Urine pH 5.0 (5.0-8.0) Ur Specific Diana 1.012 (1.001-1.035) Urine Protein Negative (Negative) Urine Glucose (UA) Negative (Negative) Urine Ketones Negative (Negative) Urine Blood Trace H (Negative) Urine Nitrite Negative (Negative) Urine Bilirubin Negative (Negative) Urine Urobilinogen <2.0 (<2.0) mg/dL Ur Leukocyte Esterase Large H (Negative) Urine RBC 7 H (0-5) /hpf Urine WBC 7 H (0-5) /hpf Ur Squamous Epith Cells 1 (0-4) /hpf Urine Bacteria Moderate H (None) /hpf Urine Mucus Rare H (None) /hpf Urine HCG, Qual Not Detected (Not Detectd) 05/01/18 Range/Units 09:27 WBC (3.8-10.6) k/uL RBC (3.80-5.40) m/uL Hgb (11.4-16.0) gm/dL Hct (34.0-46.0) % MCV (80.0-100.0) fL MCH (25.0-35.0) pg MCHC (31.0-37.0) g/dL RDW (11.5-15.5) % Plt Count (150-450) k/uL Neutrophils % % Lymphocytes % % Monocytes % % Eosinophils % % Basophils % % Neutrophils # (1.3-7.7) k/uL Lymphocytes # (1.0-4.8) k/uL Monocytes # (0-1.0) k/uL Eosinophils # (0-0.7) k/uL Basophils # (0-0.2) k/uL Sodium 141 (137-145) mmol/L Potassium 4.4 (3.5-5.1) mmol/L Chloride 108 H (98-107) mmol/L Carbon Dioxide 26 (22-30) mmol/L Anion Gap 7 mmol/L BUN 10 (7-17) mg/dL Creatinine 0.55 (0.52-1.04) mg/dL Est GFR (CKD-EPI)AfAm >90 (>60 ml/min/1.73 sqM) Est GFR (CKD-EPI)NonAf >90 (>60 ml/min/1.73 sqM) Glucose 92 (74-99) mg/dL Calcium 9.5 (8.4-10.2) mg/dL Total Bilirubin 0.5 (0.2-1.3) mg/dL AST 15 (14-36) U/L ALT 16 (9-52) U/L Alkaline Phosphatase 46 (38-126) U/L Total Protein 6.6 (6.3-8.2) g/dL Albumin 3.6 (3.5-5.0) g/dL TSH 3.660 (0.465-4.680) mIU/L Urine Color Urine Appearance (Clear) Urine pH (5.0-8.0) Ur Specific Diana (1.001-1.035) Urine Protein (Negative) Urine Glucose (UA) (Negative) Urine Ketones (Negative) Urine Blood (Negative) Urine Nitrite (Negative) Urine Bilirubin (Negative) Urine Urobilinogen (<2.0) mg/dL Ur Leukocyte Esterase (Negative) Urine RBC (0-5) /hpf Urine WBC (0-5) /hpf Ur Squamous Epith Cells (0-4) /hpf Urine Bacteria (None) /hpf Urine Mucus (None) /hpf Urine HCG, Qual (Not Detectd) Disposition Clinical Impression: Pelvic pain Disposition: HOME SELF-CARE Condition: Good Instructions: Pelvic Inflammatory Disease (ED) Is patient prescribed a controlled substance at d/c from ED?: No Referrals: Whit Henry MD [Primary Care Provider] - 1-2 days Time of Disposition: 13:27
[2018-05-01 10:00] LABS: Basophils # (A) 0.1 k/uL (0-0.2); Basophils % (A) 1 %; Eosinophils # (A) 0.2 k/uL (0-0.7); Eosinophils % (A) 2 %; HCT 37.7 % (34.0-46.0); HGB 12.3 gm/dL (11.4-16.0); Lymphocytes # (A) 4.3 k/uL (1.0-4.8); Lymphocytes % (A) 36 %; MCH 27.1 pg (25.0-35.0); MCHC 32.7 g/dL (31.0-37.0); MCV 82.9 fL (80.0-100.0); Monocytes # (A) 0.4 k/uL (0-1.0); Monocytes % (A) 4 %; Neutrophils # (A) 6.6 k/uL (1.3-7.7); Neutrophils % (A) 56 %; Platelet Count 402 k/uL (150-450); RBC 4.55 m/uL (3.80-5.40); RDW 14.7 % (11.5-15.5); WBC 11.7 k/uL (3.8-10.6)
[2018-05-01 10:05] LABS: Appearance,Urine Cloudy (Clear); Bacteria,Urine Moderate /hpf; Bilirubin,Urine Negative (Negative); Blood,Urine Trace (Negative); Color,Urine Yellow; Glucose,Urine (UA) Negative (Negative); Ketones,Urine Negative (Negative); Leukocyte Esterase,Urine Large (Negative); Mucus,Urine Rare /hpf; Nitrite,Urine Negative (Negative); Protein,Urine Negative (Negative); RBC,Urine 7 /hpf (0-5); Specific Gravity,Urine 1.012 (1.001-1.035); Squamous Epithelial Cell,Urine 1 /hpf (0-4); Urobilinogen,Urine <2.0 mg/dL (<2.0)
[2018-05-01 10:10] LABS: ALT 16 U/L (9-52); AST 15 U/L (14-36); Albumin 3.6 g/dL (3.5-5.0); Alkaline Phosphatase 46 U/L (38-126); Anion Gap 7 mmol/L; Blood Urea Nitrogen 10 mg/dL (7-17); Calcium 9.5 mg/dL (8.4-10.2); Carbon Dioxide 26 mmol/L (22-30); Chloride 108 mmol/L (98-107); Glucose 92 mg/dL (74-99); Potassium 4.4 mmol/L (3.5-5.1); Sodium 141 mmol/L (137-145); Total Bilirubin 0.5 mg/dL (0.2-1.3); Total Protein 6.6 g/dL (6.3-8.2)
--- NOTE | 2018-05-01 10:31 | US ---
EXAMINATION TYPE: US transvaginal DATE OF EXAM: 05/01/2018 COMPARISON: NONE CLINICAL HISTORY: Pain. pelvic pain TECHNIQUE: Transvaginal (TV). Date of LMP: 2015 EXAM MEASUREMENTS: Uterus: 7.9 x 5.1 x 6.6 cm Endometrial Stripe: 0.4 cm Right Ovary: 3.1 x 1.6 x 1.4 cm Left Ovary: 3.2 x 1.9 x 2.6 cm 1. Uterus: Anteverted bulky and heterogenous with multiple fibroids, largest measures 2.1 x 1.9 x 2.6 cm. 2. Endometrium: wnl 3. Right Ovary: wnl 4. Left Ovary: wnl Spectral, color and waveform doppler imaging shows good arterial and venous flow within the ovaries ; there is no evidence for ovarian torsion. 5. Bilateral Adnexa: wnl 6. Posterior cul-de-sac: no free fluid Limited color and spectral doppler demonstrated on left ovary due to position posterior to uterus, ap pears normal. IMPRESSION: Fibroid uterus.
--- NOTE | 2018-05-01 11:32 | XR ---
EXAMINATION TYPE: XR KUB DATE OF EXAM: 05/01/2018 11:20 AM CLINICAL HISTORY: Abdominal pain and nausea with intermittent diarrhea and constipation TECHNIQUE: Two Upright KUB images of the abdomen are obtained. COMPARISON: Abdominal x-ray August 07, 2016. FINDINGS: Scattered gas is seen in non-distended stomach as well as small and large bowel loops scatt ered throughout the abdomen and pelvis. New cholecystectomy clips are seen. There is new displaced cl ip into the left pelvis. Lung bases are clear. No pneumoperitoneum is seen. Visualized osseous struct ures are intact. IMPRESSION: Interval cholecystectomy. Persistent overall nonobstructive bowel gas pattern.
[2018-05-01 13:56] VITALS: BP 118/63; PULSE 86; RESP 16; TEMP 98.5
== END 2018-05-01 13:56 | disposition home or self-care (01) ==
LOC: EC 08:14
DX: R10.2 Pelvic and perineal pain (principal); D25.9 Leiomyoma of uterus, unspecified; R82.998 Other abnormal findings in urine; R53.83 Other fatigue; K59.00 Constipation, unspecified; R19.7 Diarrhea, unspecified; E66.9 Obesity, unspecified; F32.9 Major depressive disorder, single episode, unspecified; F41.9 Anxiety disorder, unspecified; Z87.891 Personal history of nicotine dependence; Z79.3 Long term (current) use of hormonal contraceptives; Z79.899 Other long term (current) drug therapy; Z90.49 Acquired absence of other specified parts of digestive tract; Z90.89 Acquired absence of other organs; Z68.41 Body mass index [BMI] 40.0-44.9, adult
CPT/HCPCS: 36415; 74018; 76830; 80053; 81001; 81025; 84443; 85025; 87086; 99284

== ENCOUNTER → 2018-08-20 | Outpatient (CLI) | payer OTHER ==
[2018-08-20 13:36] LABS: Basophils # (A) 0.1 k/uL (0-0.2); Basophils % (A) 1 %; Eosinophils # (A) 0.2 k/uL (0-0.7); Eosinophils % (A) 2 %; HCT 39.1 % (34.0-46.0); HGB 12.8 gm/dL (11.4-16.0); Lymphocytes # (A) 4.1 k/uL (1.0-4.8); Lymphocytes % (A) 36 %; MCH 27.7 pg (25.0-35.0); MCHC 32.7 g/dL (31.0-37.0); MCV 84.8 fL (80.0-100.0); Mean Platelet Volume 6.5; Monocytes # (A) 0.4 k/uL (0-1.0); Monocytes % (A) 4 %; Neutrophils # (A) 6.4 k/uL (1.3-7.7); Neutrophils % (A) 56 %; Platelet Count 438 k/uL (150-450); RBC 4.61 m/uL (3.80-5.40); RDW 14.3 % (11.5-15.5); WBC 11.4 k/uL (3.8-10.6)
== END | disposition home or self-care (01) ==
LOC: LABPAT 12:53
PROVIDERS: ATTEND Obstetrics & Gynecology
DX: Z01.812 Encounter for preprocedural laboratory examination (principal)
CPT/HCPCS: 36415; 85025

== ENCOUNTER → 2018-08-30 | Day surgery (SDC) | payer OTHER ==
[2018-08-27 14:53] VITALS: BMI 43.0
[~2018-08-30] MED LIST: ACETAMINOPHEN IV (For NPO) 1,000 MG/100 ML VIAL ONE; BUPIVACAINE (PF) 0.5% 30 ML VIAL SQ ONE; DEXAMETHASONE SOD PHOSPHATE 10 MG/ML 1 ML VIAL IV ONE; GLYCOPYRROLATE 0.2 MG/ML 2 ML VIAL ONE; KETOROLAC 30 MG/ML 1 ML VIAL ONE; LACTATED RINGERS 1,000 ML IV ONE; LACTATED RINGERS 1,000 ML IV SCH; LIDOCAINE 1% 20 ML VIAL (10MG/ML) FOR IV START INTRADERMA PRN; LIDOCAINE 1% INJ 10MG/ML (20 ML MDV) ONE; MIDAZOLAM 2 MG/2 ML VIAL ONE; NEOSTIGMINE 1 MG/ML 10 ML VIAL ONE; ONDANSETRON 4 MG/2 ML VIAL IVP ONE; PROPOFOL 10 MG/ML 20 ML VIAL IV ONE; Pre Op ABX Message 1 EACH MISC MISCELLANE ONE; ROCURONIUM BROMIDE 10 MG/ML 10 ML VIAL IV ONE; SCOPOLAMINE 1.5MG/72HR PATCH TRANSDERM ONE; SUCCINYLCHOLINE CHLORIDE 100 MG/5 ML SYR IV ONE; diphenhydrAMINE 50 MG/ML 1 ML VIAL ONE; ePHEDrine SULFATE/0.9% NACL/PF 50 MG/5 ML SYRINGE IV ONE; fentaNYL (PF) 50 MCG/ML 2 ML AMP ONE
--- NOTE | 2018-08-30 07:46 | P.HPOB ---
History of Present Illness H&P Date: 08/30/18 Chief Complaint: menorrhagia, family planning 42 year old presents for D&C, hysteroscopy and endometrial ablation with novasure and laparoscopic tubal ligation. Review of Systems All systems: negative Constitutional: Denies chills, Denies fever Eyes: denies blurred vision, denies pain Ears, nose, mouth and throat: Denies headache, Denies sore throat Cardiovascular: Denies chest pain, Denies shortness of breath Respiratory: Denies cough Gastrointestinal: Denies abdominal pain, Denies diarrhea, Denies nausea, Denies vomiting Genitourinary: Denies dysuria, Denies hematuria Musculoskeletal: Denies myalgias Integumentary: Denies pruritus, Denies rash Neurological: Denies numbness, Denies weakness Psychiatric: Denies anxiety, Denies depression Endocrine: Denies fatigue, Denies weight change Past Medical History Past Medical History: No Reported History History of Any Multi-Drug Resistant Organisms: None Reported Past Surgical History: Cholecystectomy, Tonsillectomy Past Anesthesia/Blood Transfusion Reactions: No Reported Reaction Additional Past Anesthesia/Blood Transfusion Reaction / Comment(s): was given nausea medication last time she had surgery and she broke out in hives-unsure of what the med was Smoking Status: Former smoker Past Alcohol Use History: None Reported Past Drug Use History: None Reported - Past Family History Father Family Medical History: CVA/TIA, Diabetes Mellitus Mother Additional Family Medical History / Comment(s): HEART ARRYTHMIA Medications and Allergies Home Medications Medication Instructions Recorded Confirmed Type Escitalopram [Lexapro] 20 mg PO HS 08/24/15 08/30/18 History Allergies Allergy/AdvReac Type Severity Reaction Status Date / Time No Known Allergies Allergy Verified 08/30/18 06:57 Exam Osteopathic Statement: *. No significant issues noted on an osteopathic structural exam other than those noted in the History and Physical/Consult. Vital Signs Temp Pulse Resp BP Pulse Ox 08/30/18 07:20 98.1 F 87 16 127/63 97 Intake and Output 08/29/18 08/30/18 08/30/18 22:59 06:59 14:59 Other: Weight 125.5 kg Heart: RRR Lungs: CTAB Abdomen: soft, nontender Extremeties: neg juarez's Assessment and Plan (1) Menorrhagia Current Visit: Yes Status: Acute Code(s): N92.0 - EXCESSIVE AND FREQUENT MENSTRUATION WITH REGULAR CYCLE SNOMED Code(s): 335062225 (2) Family planning Current Visit: Yes Status: Acute Code(s): Z30.09 - ENCOUNTER FOR OT GENERAL CNSL AND ADVICE ON CONTRACEPTION SNOMED Code(s): 208602788 Plan: 1. D&C, hysteroscopy, endometrial ablation with novasure and laparoscopic tubal ligation
[2018-08-30 09:15] VITALS: TEMP 96.9
--- NOTE | 2018-08-30 09:20 | P.OP ---
Date of Procedure: 08/30/18 Preoperative Diagnosis: 1. Menorrhagia 2. Family planning Postoperative Diagnosis: 1. Menorrhagia 2. Family planning Procedure(s) Performed: D&C, hysteroscopy, endometrial ablation with NovaSure and laparoscopic tubal ligation Anesthesia: VINNY Surgeon: Mabel Garcia Estimated Blood Loss (ml): 5 IV fluids (ml): 800 Urine output (ml): 20 Pathology: other (Endometrial curettings) Condition: stable Disposition: PACU Operative Findings: Hysteroscopy revealed a uterine septum, cavity length was 5cm cavity width was 4 cm time of ablation was 37 seconds at 120 W. Laparoscopy revealed some scarring in the posterior cul-de-sac, bilateral fallopian tubes were scarred to the posterior part of the uterus. Description of Procedure: Patient is taken the operating room where general anesthesia was obtained without difficulty. She was prepped and draped in normal sterile fashion dorsal lithotomy position, legs placed in the candy cane stirrups. Bladder was drained of all urine. Weighted speculum placed in the vagina and the anterior lip the cervix was grasped with serial tooth tenaculum. The uterus sounded to 8 cm and the cervix under 3 cm making the cavity length 5 cm. The cervix was dilated to #8 Hegar dilator with some difficulty in visualization. Hysteroscopy was then performed. Both ostia were visualized as well as the uterine septum at the fundus. Sharp curet was then gently used to obtain endometrial curettings. The NovaSure was introduced into the uterus with a cavity length of 5 cm, width 4 cm. after cavity assessment was passed, the time of ablation was 37 seconds at 120 W. Hysteroscopy was again performed and adequate ablation was noted. The kroner manipulator was placed. Attention was then turned to the abdomen and gloves were changed. A 10 mm infraumbilical incision was made the scalpel and 10 mm optical trocar was placed under direct visualization. A 5 mm suprapubic Incision was made and a 5 mm optical trocar was placed under direct visualization. Survey of the pelvis revealed normal-appearing uterus with scarring in the posterior cul-de-sac that made it difficult to mobilize the bowel. I was unable to visualize the fallopian tubes without traction on the omentum and bowel so a third port was placed in the right lower quadrant. A 5 mm incision was made and a 5 mm trocar was placed under direct visualization. I then had my assistant refinery operator used the suction ironmolder to hold the bowel out of the way well I fulgurated the left fallopian tube with the Kleppinger and the ampullar portion. My assistant refinery operator then helped to scoop the omentum and bowel out of the way to the other side dissected clearly visualize the right fallopian tube. The right fallopian tube was grasped with a Kleppinger and fulgurated 2- 3 cm in the ampullar portion. All instruments were then removed from the abdomen and vagina. The 10 mm infraumbilical incision was closed with 0 Vicryl and the fascial layer and then 4-0 Vicryl in a subcuticular fashion. The 5 mm incisions were closed with 4-0 Vicryl in a subcuticular fashion. Patient tolerated procedure well, sponge and instrument counts correct 2 and she was taken to recovery room in stable condition.
[2018-08-30] MEDS: HYDROmorphone 0.5 MG/0.5 ML SYRINGE IVP PRN ×2 (09:35→09:40)
[2018-08-30 10:47] VITALS: BP 121/80; PULSE 86; RESP 18
== END | disposition home or self-care (01) ==
LOC: OR 06:33
PROVIDERS: ATTEND Obstetrics & Gynecology
DX: N92.0 Excessive and frequent menstruation with regular cycle (principal); Z30.2 Encounter for sterilization; Z90.49 Acquired absence of other specified parts of digestive tract; Z87.891 Personal history of nicotine dependence; F32.9 Major depressive disorder, single episode, unspecified; E66.01 Morbid (severe) obesity due to excess calories; Z68.41 Body mass index [BMI] 40.0-44.9, adult; Z79.899 Other long term (current) drug therapy
CPT/HCPCS: 81025; 88305; 58563; 58670; J2250; J1200; J1100; J2710; J2405; J2001; J3010; J1885; J0131; J0330; J2704; J1170

== ENCOUNTER → 2018-09-03 | Outpatient (CLI) | payer OTHER ==
--- NOTE | 2018-09-04 09:05 | MM ---
Reason for exam: screening (asymptomatic). Baseline mammogram. History: Patient is nulliparous. Took hormonal contraceptives beginning at age 38. Physical Findings: Nurse did not find any significant physical abnormalities on exam. MG 3D Screening Mammo W/Cad Bilateral CC and MLO view(s) were taken. There are scattered fibroglandular densities. No significant findings. These results were verbally communicated with the patient and result sheet given to the patient on 09/03/18. ASSESSMENT: Benign, BI-RAD 2 RECOMMENDATION: Routine screening mammogram of both breasts in 1 year.
== END | disposition home or self-care (01) ==
LOC: RADMAMWWP 09:21
PROVIDERS: ATTEND Obstetrics & Gynecology
DX: Z12.31 Encounter for screening mammogram for malignant neoplasm of breast (principal)
CPT/HCPCS: 77063; 77067

== ENCOUNTER 2019-05-21 00:04 | Emergency (ER) | payer BC, OTHER ==
[2019-05-21] MEDS ORDERED: IBUPROFEN 400 MG TAB PO STA (01:01)
--- NOTE | 2019-05-21 01:38 | ED ---
ENT HPI - General Chief complaint: ENT Stated complaint: Earache Time Seen by Provider: 05/21/19 00:27 Source: patient, family Mode of arrival: ambulatory Limitations: no limitations - History of Present Illness Initial comments: This patient is a 43-year-old woman who presents to be evaluated for a constellation of symptoms that includes right ear pain, nasal congestion, eye irritation, cough, fevers, and body aches. The patient states that her symptoms initially began 8 days ago when she noticed some rhinorrhea and some right eye irritation. She states that the following day the right eye had some redness. She also was experiencing some right ear pressure. She went to the urgent care and was started on tobramycin drops and amoxicillin for the ear. She states that she has been taking these going on 6 days now and she has not expressed any improvement. In addition, she has been having intermittent fevers, body aches, and a cough. She presents to be evaluated because she felt she should be getting better with the medications. MD complaint: sore throat, ear pain, other (Cough and body aches) Onset/Timin -: days(s) Location: R ear, throat Quality: dull Consistency: constant Improves with: none Worsens with: none Associated Symptoms: fever, cough, sore throat, rhinorrhea - Related Data Home Medications Medication Instructions Recorded Confirmed Escitalopram [Lexapro] 20 mg PO HS 08/24/15 08/30/18 Previous Rx's Medication Instructions Recorded HYDROcodone/APAP 5-325MG [Herod 1 - 2 tab PO Q6HR PRN #20 tab 08/30/18 5-325] Ibuprofen [Motrin] 600 mg PO Q6HR PRN #30 tab 08/30/18 Oseltamivir [Tamiflu] 75 mg PO Q12HR #10 cap 05/21/19 Allergies Allergy/AdvReac Type Severity Reaction Status Date / Time No Known Allergies Allergy Verified 05/21/19 00:12 Review of Systems ROS Statement: Those systems with pertinent positive or pertinent negative responses have been documented in the HPI. ROS Other: All systems not noted in ROS Statement are negative. Constitutional: Reports: fever, chills. Denies: weakness Eyes: Reports: as per HPI, eye pain, eye discharge. Denies: vision change ENT: Reports: as per HPI, ear pain, throat pain, congestion Respiratory: Reports: cough. Denies: dyspnea, hemoptysis Cardiovascular: Denies: chest pain, palpitations Gastrointestinal: Denies: abdominal pain, vomiting, diarrhea Genitourinary: Denies: dysuria, hematuria Musculoskeletal: Reports: myalgia. Denies: back pain Skin: Denies: rash Neurological: Denies: headache, weakness, numbness Past Medical History Past Medical History: No Reported History Additional Past Medical History / Comment(s): depresion, anxiety History of Any Multi-Drug Resistant Organisms: None Reported Past Surgical History: Cholecystectomy, Tonsillectomy, Tubal Ligation Past Anesthesia/Blood Transfusion Reactions: No Reported Reaction Past Psychological History: Anxiety, Depression Smoking Status: Former smoker Past Alcohol Use History: None Reported Past Drug Use History: None Reported - Past Family History Father Family Medical History: CVA/TIA, Diabetes Mellitus Mother Additional Family Medical History / Comment(s): HEART ARRYTHMIA General Exam Limitations: no limitations General appearance: alert, in no apparent distress Head exam: Present: atraumatic, normocephalic Eye exam: Present: normal appearance. Absent: scleral icterus, conjunctival injection ENT exam: Present: normal oropharynx. Absent: TM's normal bilaterally (Right tympanic membrane does have an effusion.) Neck exam: Present: normal inspection, full ROM, lymphadenopathy. Absent: meningismus Respiratory exam: Present: normal lung sounds bilaterally. Absent: respiratory distress, wheezes, rales, rhonchi, stridor Cardiovascular Exam: Present: regular rate, normal rhythm, normal heart sounds. Absent: systolic murmur, diastolic murmur, rubs, gallop GI/Abdominal exam: Present: soft. Absent: tenderness Neurological exam: Present: alert Skin exam: Present: warm, dry, intact, normal color. Absent: rash Course Vital Signs 05/21/19 00:08 Temperature 101 F H Pulse Rate 111 H Respiratory 24 Rate Blood Pressure 125/83 O2 Sat by Pulse 94 L Oximetry Medical Decision Making - Lab Data Lab Results 05/21/19 Range/Units 00:14 Influenza Type A RNA Detected H (Not Detectd) Influenza Type B (PCR) Not Detected (Not Detectd) Disposition Clinical Impression: Influenza A Disposition: HOME SELF-CARE Condition: Fair Instructions (If sedation given, give patient instructions): Influenza (ED), Earache (ED) Prescriptions: Oseltamivir [Tamiflu] 75 mg PO Q12HR #10 cap Is patient prescribed a controlled substance at d/c from ED?: No Referrals: Whit Henry MD [Primary Care Provider] - 1-2 days
[2019-05-21 02:00] VITALS: BP 123/74; PULSE 103; RESP 19; TEMP 99.5
== END 2019-05-21 02:00 | disposition home or self-care (01) ==
LOC: EC 00:04
DX: J10.1 Influenza due to other identified influenza virus with other respiratory manifestations (principal); F41.9 Anxiety disorder, unspecified; F32.9 Major depressive disorder, single episode, unspecified; H92.01 Otalgia, right ear; Z79.899 Other long term (current) drug therapy; Z87.891 Personal history of nicotine dependence
CPT/HCPCS: 87502; 99283

== ENCOUNTER 2019-08-14 02:39 | Emergency (ER) | payer BC ==
[2019-08-14 02:53] VITALS: RESP 18; TEMP 98.6
[2019-08-14] MEDS ORDERED: MORPHINE SULFATE 4 MG/ML SYRINGE IV STA (03:09)
[2019-08-14] MEDS ORDERED: SODIUM CHLORIDE 0.9% 500 ML 500 ML IV STA (03:09)
--- NOTE | 2019-08-14 03:15 | ED ---
General Adult HPI - General Chief complaint: Abdominal Pain Stated complaint: pelvic pain Time Seen by Provider: 08/14/19 02:40 Source: patient, RN notes reviewed, old records reviewed Mode of arrival: ambulatory - History of Present Illness Initial comments: 43-year-old female presenting for evaluation of lower right-sided abdominal pain. Patient states pain is been present for the past 3 days. It has worsened over this time course. Initially was intermittent but has become more constant. She states the pain is in her right lower abdomen and pelvis and right flank. She has previous history of cholecystectomy. She denies fever or chills. Denies nausea or vomiting. Denies upper abdominal pain. Denies diarrhea or constipation. Denies dysuria or hematuria. Denies vaginal bleeding or vaginal discharge. No concern for STDs. - Related Data Home Medications Medication Instructions Recorded Confirmed Escitalopram [Lexapro] 20 mg PO HS 08/24/15 08/30/18 Previous Rx's Medication Instructions Recorded HYDROcodone/APAP 5-325MG [[place] 1 - 2 tab PO Q6HR PRN #20 tab 08/30/18 5-325] Ibuprofen [Motrin] 600 mg PO Q6HR PRN #30 tab 08/30/18 Oseltamivir [Tamiflu] 75 mg PO Q12HR #10 cap 05/21/19 Allergies Allergy/AdvReac Type Severity Reaction Status Date / Time No Known Allergies Allergy Verified 08/14/19 02:54 Review of Systems ROS Statement: Those systems with pertinent positive or pertinent negative responses have been documented in the HPI. ROS Other: All systems not noted in ROS Statement are negative. Past Medical History Past Medical History: No Reported History Additional Past Medical History / Comment(s): depresion, anxiety History of Any Multi-Drug Resistant Organisms: None Reported Past Surgical History: Cholecystectomy, Tonsillectomy, Tubal Ligation Past Anesthesia/Blood Transfusion Reactions: No Reported Reaction Past Psychological History: Anxiety, Depression Smoking Status: Former smoker Past Alcohol Use History: None Reported Past Drug Use History: None Reported - Past Family History Father Family Medical History: CVA/TIA, Diabetes Mellitus Mother Additional Family Medical History / Comment(s): HEART ARRYTHMIA General Exam General appearance: alert, in no apparent distress Head exam: Present: atraumatic, normocephalic Eye exam: Present: normal appearance, PERRL ENT exam: Present: normal exam Neck exam: Present: normal inspection. Absent: tenderness, meningismus Respiratory exam: Present: normal lung sounds bilaterally. Absent: respiratory distress, wheezes Cardiovascular Exam: Present: regular rate, normal rhythm GI/Abdominal exam: Present: soft, tenderness (Minimal right lower quadrant tenderness to palpation). Absent: distended, guarding Extremities exam: Present: normal inspection, normal capillary refill. Absent: pedal edema Neurological exam: Present: alert, oriented X3, CN II-XII intact Psychiatric exam: Present: normal affect, normal mood Skin exam: Present: warm, dry, intact. Absent: cyanosis, diaphoretic Course Vital Signs 08/14/19 08/14/19 02:51 04:09 Temperature 98.6 F Pulse Rate 90 72 Respiratory 18 18 Rate Blood Pressure 186/105 120/69 O2 Sat by Pulse 98 96 Oximetry Medical Decision Making - Medical Decision Making 43-year-old female with 3 days of right lower quadrant abdominal pain. Pain is radiating to the right flank. There is concern for both kidney stone, as well as appendicitis. Patient does not have a surgical abdomen, minimal tenderness on exam. Hypotensive initially which I suspect is predominantly secondary to pain and this improves with treatment of pain. Normal blood pressure on reevaluation. Patient has mild leukocytosis 12.5, stable he will, normal electrolytes urinalysis showing rare bacteria and 4 white cells. KUB is negative for obstruction or intraperitoneal free air. Did obtain a CT of the abdomen and pelvis that only shows a right adrenal mass, patient is informed of this and she will follow closely with her primary care physician Dr. Henry regarding this incidental finding. Appendix is not visualized but there is no secondary signs of appendicitis. No other acute findings on CT. On reevaluation she is feeling better. We discussed close return parameters. She will take Motrin for pain and will return with any worsening or changing symptoms, development of fever vomiting or worsening pain. She will follow-up with her primary care physician and her [facility]. - Lab Data Result diagrams: 08/14/19 03:30 08/14/19 03:30 Lab Results 08/14/19 08/14/19 08/14/19 Range/Units 02:55 02:55 03:30 WBC 12.5 H (3.8-10.6) k/uL RBC 4.47 (3.80-5.40) m/uL Hgb 12.9 (11.4-16.0) gm/dL Hct 38.8 (34.0-46.0) % MCV 86.8 (80.0-100.0) fL MCH 28.8 (25.0-35.0) pg MCHC 33.2 (31.0-37.0) g/dL RDW 14.0 (11.5-15.5) % Plt Count 351 (150-450) k/uL Neutrophils % 61 % Lymphocytes % 32 % Monocytes % 4 % Eosinophils % 2 % Basophils % 1 % Neutrophils # 7.6 (1.3-7.7) k/uL Lymphocytes # 4.0 (1.0-4.8) k/uL Monocytes # 0.5 (0-1.0) k/uL Eosinophils # 0.3 (0-0.7) k/uL Basophils # 0.1 (0-0.2) k/uL PT (9.0-12.0) sec INR (<1.2) APTT (22.0-30.0) sec Sodium (137-145) mmol/L Potassium (3.5-5.1) mmol/L Chloride (98-107) mmol/L Carbon Dioxide (22-30) mmol/L Anion Gap mmol/L BUN (7-17) mg/dL Creatinine (0.52-1.04) mg/dL Est GFR (CKD-EPI)AfAm (>60 ml/min/1.73 sqM) Est GFR (CKD-EPI)NonAf (>60 ml/min/1.73 sqM) Glucose (74-99) mg/dL Plasma Lactic Acid Blake (0.7-2.0) mmol/L Calcium (8.4-10.2) mg/dL Total Bilirubin (0.2-1.3) mg/dL AST (14-36) U/L ALT (4-34) U/L Alkaline Phosphatase (38-126) U/L Total Protein (6.3-8.2) g/dL Albumin (3.5-5.0) g/dL Amylase (30-110) U/L Lipase (23-300) U/L Urine Color Yellow Urine Appearance Cloudy H (Clear) Urine pH 6.5 (5.0-8.0) Ur Specific [place] 1.019 (1.001-1.035) Urine Protein Negative (Negative) Urine Glucose (UA) Negative (Negative) Urine Ketones Negative (Negative) Urine Blood Small H (Negative) Urine Nitrite Negative (Negative) Urine Bilirubin Negative (Negative) Urine Urobilinogen <2.0 (<2.0) mg/dL Ur Leukocyte Esterase Moderate H (Negative) Urine RBC 1 (0-5) /hpf Urine WBC 4 (0-5) /hpf Ur Squamous Epith Cells 4 (0-4) /hpf Urine Bacteria Rare H (None) /hpf Urine Mucus Occasional H (None) /hpf Urine HCG, Qual Not Detected (Not Detectd) 08/14/19 08/14/19 08/14/19 Range/Units 03:30 03:30 03:30 WBC (3.8-10.6) k/uL RBC (3.80-5.40) m/uL Hgb (11.4-16.0) gm/dL Hct (34.0-46.0) % MCV (80.0-100.0) fL MCH (25.0-35.0) pg MCHC (31.0-37.0) g/dL RDW (11.5-15.5) % Plt Count (150-450) k/uL Neutrophils % % Lymphocytes % % Monocytes % % Eosinophils % % Basophils % % Neutrophils # (1.3-7.7) k/uL Lymphocytes # (1.0-4.8) k/uL Monocytes # (0-1.0) k/uL Eosinophils # (0-0.7) k/uL Basophils # (0-0.2) k/uL PT 9.4 (9.0-12.0) sec INR 0.9 (<1.2) APTT 23.0 (22.0-30.0) sec Sodium 137 (137-145) mmol/L Potassium 4.4 (3.5-5.1) mmol/L Chloride 104 (98-107) mmol/L Carbon Dioxide 26 (22-30) mmol/L Anion Gap 7 mmol/L BUN 11 (7-17) mg/dL Creatinine 0.62 (0.52-1.04) mg/dL Est GFR (CKD-EPI)AfAm >90 (>60 ml/min/1.73 sqM) Est GFR (CKD-EPI)NonAf >90 (>60 ml/min/1.73 sqM) Glucose 107 H (74-99) mg/dL Plasma Lactic Acid Blake 1.2 (0.7-2.0) mmol/L Calcium 9.1 (8.4-10.2) mg/dL Total Bilirubin 0.4 (0.2-1.3) mg/dL AST 21 (14-36) U/L ALT 15 (4-34) U/L Alkaline Phosphatase 79 (38-126) U/L Total Protein 7.1 (6.3-8.2) g/dL Albumin 3.8 (3.5-5.0) g/dL Amylase 46 (30-110) U/L Lipase 41 (23-300) U/L Urine Color Urine Appearance (Clear) Urine pH (5.0-8.0) Ur Specific [place] (1.001-1.035) Urine Protein (Negative) Urine Glucose (UA) (Negative) Urine Ketones (Negative) Urine Blood (Negative) Urine Nitrite (Negative) Urine Bilirubin (Negative) Urine Urobilinogen (<2.0) mg/dL Ur Leukocyte Esterase (Negative) Urine RBC (0-5) /hpf Urine WBC (0-5) /hpf Ur Squamous Epith Cells (0-4) /hpf Urine Bacteria (None) /hpf Urine Mucus (None) /hpf Urine HCG, Qual (Not Detectd) Disposition Clinical Impression: Abdominal pain Disposition: HOME SELF-CARE Condition: Good Instructions (If sedation given, give patient instructions): Abdominal Pain (ED) Additional Instructions: Please return with worsening or changing symptoms. Please follow up with Dr. Henry regarding the CT findings on your adrenal gland. Is patient prescribed a controlled substance at d/c from ED?: No Referrals: Whit Henry MD [Primary Care Provider] - 1-2 days Time of Disposition: 04:42
[2019-08-14 03:21] LABS: Appearance,Urine Cloudy (Clear); Bacteria,Urine Rare /hpf; Bilirubin,Urine Negative (Negative); Blood,Urine Small (Negative); Color,Urine Yellow; Glucose,Urine (UA) Negative (Negative); Ketones,Urine Negative (Negative); Leukocyte Esterase,Urine Moderate (Negative); Mucus,Urine Occasional /hpf; Nitrite,Urine Negative (Negative); PH, Urine 6.5 (5.0-8.0); Protein,Urine Negative (Negative); RBC,Urine 1 /hpf (0-5); Specific Gravity,Urine 1.019 (1.001-1.035); Squamous Epithelial Cell,Urine 4 /hpf (0-4); Urobilinogen,Urine <2.0 mg/dL (<2.0); WBC,Urine 4 /hpf (0-5)
[2019-08-14 03:53] LABS: Basophils # (A) 0.1 k/uL (0-0.2); Basophils % (A) 1 %; Eosinophils # (A) 0.3 k/uL (0-0.7); Eosinophils % (A) 2 %; HCT 38.8 % (34.0-46.0); HGB 12.9 gm/dL (11.4-16.0); Lymphocytes % (A) 32 %; MCH 28.8 pg (25.0-35.0); MCHC 33.2 g/dL (31.0-37.0); MCV 86.8 fL (80.0-100.0); Monocytes # (A) 0.5 k/uL (0-1.0); Monocytes % (A) 4 %; Neutrophils # (A) 7.6 k/uL (1.3-7.7); Neutrophils % (A) 61 %; Platelet Count 351 k/uL (150-450); RBC 4.47 m/uL (3.80-5.40); WBC 12.5 k/uL (3.8-10.6)
[2019-08-14 03:56] LABS: INR 0.9 (<1.2); Prothrombin Time 9.4 sec (9.0-12.0)
[2019-08-14 03:57] LABS: ALT 15 U/L (4-34); AST 21 U/L (14-36); African American GFR (CKD) >90 (>60 ml/min/1.73 sqM); Albumin 3.8 g/dL (3.5-5.0); Alkaline Phosphatase 79 U/L (38-126); Amylase 46 U/L (30-110); Anion Gap 7 mmol/L; Blood Urea Nitrogen 11 mg/dL (7-17); Calcium 9.1 mg/dL (8.4-10.2); Carbon Dioxide 26 mmol/L (22-30); Chloride 104 mmol/L (98-107); Glucose 107 mg/dL (74-99); Non-African American GFR(CKD) >90 (>60 ml/min/1.73 sqM); Potassium 4.4 mmol/L (3.5-5.1); Sodium 137 mmol/L (137-145); Total Bilirubin 0.4 mg/dL (0.2-1.3); Total Protein 7.1 g/dL (6.3-8.2)
--- NOTE | 2019-08-14 04:01 | XR ---
EXAMINATION TYPE: XR KUB DATE OF EXAM: 08/14/2019 COMPARISON: 05/01/2018 HISTORY: Abdominal pain TECHNIQUE: 2 views upright FINDINGS: There is no sign of intestinal obstruction or pneumoperitoneum. Fecal pattern is normal. Th ere is no evidence of a mass. There are clips from cholecystectomy. Lung bases are clear. IMPRESSION: Nonacute abdomen.
--- NOTE | 2019-08-14 04:33 | CT ---
EXAMINATION TYPE: CT abdomen pelvis w con DATE OF EXAM: 08/14/2019 COMPARISON: None HISTORY: RLQ Abd Pain CT DLP: 2369.60 mGycm Automated exposure control for dose reduction was used. CONTRAST: Performed with IV Contrast, patient injected with 100 mL of Isovue 300. Images were obtained from the diaphragm to the floor the pelvis with intravenous contrast. The lung bases are clear of infiltrate. There is no pleural effusion. Heart size is fairly normal. Th ere is no pericardial effusion. Liver spleen pancreas appear normal. Stomach appears normal. Bile marylin ts are not dilated. There are clips from cholecystectomy. There is no hydronephrosis. Kidneys show satisfactory contrast opacification. There is mixed density to centimeter mass on the right adrenal gland. Delayed images show normal renal excretion. There is no retroperitoneal adenopathy. Ureters are not dilated. Bladder distends smoothly. There is no inguinal hernia. There is no free fluid in the pelvis. Uterus is anteverted. Lumbar spine is intac t. Bony pelvis is intact. There is no ascites or free air. There is no sign of a bowel obstruction. There is no mesenteric paramjit a. Appendix is not seen. There is no sign of thickened appendix. There is epigastric small ventral he rnia that contains some omental fat. Hernia measures 2 x 1 cm. IMPRESSION: No renal stone or obstruction. Appendix not seen. No sign of appendicitis. No evidence of acute abdom en and pelvis. Right adrenal mass has predominantly soft tissue density. Comparison with old exam would be helpful. The appearance is nonspecific.
[2019-08-14] MEDS ORDERED: KETOROLAC 30 MG/ML 1 ML VIAL IVP STA (04:40)
[2019-08-14 04:59] VITALS: BP 119/67; PULSE 77
== END 2019-08-14 04:58 | disposition home or self-care (01) ==
LOC: EC 02:39
DX: R10.31 Right lower quadrant pain (principal); R10.2 Pelvic and perineal pain; D72.829 Elevated white blood cell count, unspecified; E27.9 Disorder of adrenal gland, unspecified; R10.813 Right lower quadrant abdominal tenderness; F41.9 Anxiety disorder, unspecified; F32.9 Major depressive disorder, single episode, unspecified; Z79.899 Other long term (current) drug therapy; Z87.891 Personal history of nicotine dependence
CPT/HCPCS: 36415; 80053; 82150; 83605; 83690; 85025; 85610; 85730; 81001; 81025; 74018; 74177; 99285; 96374; 96375; 96361; J2270; J1885; Q9967

== ENCOUNTER → 2019-11-19 | Outpatient (CLI) | payer BC ==
--- NOTE | 2019-11-19 16:14 | CT ---
EXAMINATION TYPE: CT adrenal glands wo/w con DATE OF EXAM: 11/19/2019 COMPARISON: 08/14/2019 INDICATION: Known adrenal mass. Follow up per patient. DLP: 3091.8 mGycm, Automated exposure control for dose reduction was used. CONTRAST: 100 mL of Isovue 300. Study performed with Oral Contrast TECHNIQUE: Axial images were obtained from above the diaphragm to the pubic rami in the axial plane a t 5 mm thick sections. Reconstructed images are reviewed on the computer in the coronal plane. Chely rob scanning was performed through the adrenal glands. FINDINGS: Limited CT sections are obtained the lung bases. The lung bases are clear. CT ABDOMEN: Liver: Normal Spleen: Normal Pancreas: Normal Adrenal glands: There is a 2.0 cm nodule on the right adrenal gland. This is stable in size from comp arison. This measures 16 Hounsfield units on noncontrast images this measures 93 Hounsfield units on post contrast images. This measures 48 Hounsfield units on delayed images. The absolute washout is 58 % which is indeterminate. The relative washout of 48% can be compatible with an adenoma. Monitoring i s recommended. Gallbladder: Surgically absent Kidneys: No masses are evident. No hydronephrosis is present. Tiny cortical renal cysts present on the left kidney early phase contrast. Delayed images were obtained through the kidneys, which remain unremarkable. Aorta: Normal Inferior vena cava: Normal. Loops of bowel within the abdomen and pelvis are normal. There are loops of bowel which are incom pletely distended or lack oral contrast limiting their evaluation. IMPRESSIONS: 1. 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 Absolute washout is indeterminate and therefore, mon itoring for stability is recommended.
== END | disposition home or self-care (01) ==
LOC: RADCTMAIN 08:52
PROVIDERS: ATTEND Family Medicine
DX: E27.9 Disorder of adrenal gland, unspecified (principal); D44.11 Neoplasm of uncertain behavior of right adrenal gland
CPT/HCPCS: 74170; Q9967

== ENCOUNTER → 2021-05-26 | Outpatient (CLI) | payer BC ==
--- NOTE | 2021-05-27 12:28 | MM ---
Reason for exam: screening (asymptomatic). Last mammogram was performed 2 years and 9 months ago. History: Patient is nulliparous. Took hormonal contraceptives beginning at age 38. Physical Findings: A clinical breast exam by your physician is recommended on an annual basis and results should be correlated with mammographic findings. MG 3D Screening Mammo W/Cad Bilateral CC and MLO view(s) were taken. Prior study comparison: September 03, 2018, bilateral MG 3d screening mammo w/cad. There are scattered fibroglandular densities. There is no discrete abnormality. ASSESSMENT: Negative, BI-RAD 1 RECOMMENDATION: Routine screening mammogram of both breasts in 1 year.
== END | disposition home or self-care (01) ==
LOC: RADMAMWWP 10:40
PROVIDERS: ATTEND Family Medicine
DX: Z12.31 Encounter for screening mammogram for malignant neoplasm of breast (principal)
CPT/HCPCS: 77063; 77067

== ENCOUNTER → 2022-04-21 | Outpatient (CLI) | payer BC ==
[2022-04-21 18:06] LABS: Basophils # (A) 0.05 X 10*3/uL (0.00-0.10); Basophils % (A) 0.5 %; Eosinophils # (A) 0.18 X 10*3/uL (0.04-0.35); Eosinophils % (A) 1.7 %; HCT 41.9 % (37.2-46.3); HGB 13.1 g/dL (12.0-15.0); Immature Grans, Automated 0.5 %; Lymphocytes # (A) 4.43 X 10*3/uL (0.90-5.00); Lymphocytes % (A) 41.8 %; MCH 28.8 pg (27.0-32.0); MCHC 31.3 g/dL (32.0-37.0); MCV 92.1 fL (80.0-97.0); Mean Platelet Volume 9.7 fL (9.5-12.2); Monocytes # (A) 0.42 X 10*3/uL (0.20-1.00); NRBC Per 100 WBC 0 /100 WBCS (0.0-0.0); Neutrophils # (A) 5.47 X 10*3/uL (1.80-7.70); Neutrophils % (A) 51.5 %; Platelet Count 348 X 10*3/uL (140-440); RBC 4.55 X 10*6/uL (4.10-5.20)
[2022-04-21 18:40] LABS: African American GFR (CKD) 128.5 (60.0-200.0); BUN/Creat Ratio 24.83 Ratio (12.00-20.00); Blood Urea Nitrogen 14.9 mg/dL (9.0-27.0); Calcium 9.7 mg/dL (8.7-10.3); Non-African American GFR(CKD) 110.9 (60.0-200.0)
== END | disposition home or self-care (01) ==
LOC: LABPAT 09:34
PROVIDERS: ATTEND Obstetrics & Gynecology
DX: Z01.812 Encounter for preprocedural laboratory examination (principal)
CPT/HCPCS: 36415; 80048; 85025

== ENCOUNTER 2022-04-27 05:37 | Observation (INO) | payer BC ==
--- NOTE | 2022-04-26 16:27 | P.HPOB ---
History of Present Illness H&P Date: 04/26/22 Chief Complaint: post ablative syndrome 46 year old presents for TLH BS using da madiha and diagnostic cystoscopy, possible VINCENT BSO. Review of Systems All systems: negative Constitutional: Denies chills, Denies fever Eyes: denies blurred vision, denies pain Ears, nose, mouth and throat: Denies headache, Denies sore throat Cardiovascular: Denies chest pain, Denies shortness of breath Respiratory: Denies cough Gastrointestinal: Denies abdominal pain, Denies diarrhea, Denies nausea, Denies vomiting Genitourinary: Denies dysuria, Denies hematuria Musculoskeletal: Denies myalgias Integumentary: Denies pruritus, Denies rash Neurological: Denies numbness, Denies weakness Psychiatric: Denies anxiety, Denies depression Endocrine: Denies fatigue, Denies weight change Past Medical History Past Medical History: No Reported History Additional Past Medical History / Comment(s): depresion, anxiety History of Any Multi-Drug Resistant Organisms: None Reported Past Surgical History: Cholecystectomy, Tonsillectomy, Tubal Ligation Additional Past Surgical History / Comment(s): D&C with [employer] Past Anesthesia/Blood Transfusion Reactions: No Reported Reaction Smoking Status: Former smoker - Past Family History Father Family Medical History: CVA/TIA, Diabetes Mellitus Mother Additional Family Medical History / Comment(s): HEART ARRYTHMIA Medications and Allergies Home Medications Medication Instructions Recorded Confirmed Type Escitalopram [Lexapro] 20 mg PO HS 08/24/15 04/22/22 History Loratadine-Pseudoeph 10-240 mg 1 tab PO DAILY 04/22/22 04/22/22 History [Claritin-D 24 Hour] Allergies Allergy/AdvReac Type Severity Reaction Status Date / Time No Known Allergies Allergy Verified 04/22/22 12:48 Exam Osteopathic Statement: *. No significant issues noted on an osteopathic structural exam other than those noted in the History and Physical/Consult. 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 Total laparoscopic hysterectomy bilateral salpingectomy using da madiha, possible VINCENT BSO
[2022-04-27] MEDS ORDERED: DEXAMETHASONE SOD PHOSPHATE 4 MG/ML 1 ML VIAL IV ONE (05:54)
[2022-04-27] MEDS ORDERED: LACTATED RINGERS 1,000 ML IV SCH (05:54)
[2022-04-27] MEDS ORDERED: ONDANSETRON 4 MG/2 ML VIAL IVP ONE (05:54)
[2022-04-27] MEDS ORDERED: LIDOCAINE 1% (10MG/ML) FOR IV START INTRADERMA PRN (05:54)
[2022-04-27] MEDS ORDERED: HYDROmorphone 0.5 MG/0.5 ML SYRINGE IVP PRN (05:54)
[2022-04-27] MEDS ORDERED: SCOPOLAMINE 1 MG/72 HR PATCH TRANSDERM ONE (05:54)
[2022-04-27] MEDS ORDERED: MIDAZOLAM 2 MG/2 ML VIAL IVP ONE (06:50)
[2022-04-27] MEDS ORDERED: NEOSTIGMINE 1 MG/ML 10 ML VIAL ONE (07:09)
[2022-04-27] MEDS ORDERED: ROPIVACAINE 5 MG/ML 30 ML VIAL ONE (07:09)
[2022-04-27] MEDS ORDERED: PHENYLEPHRINE-0.9% NACL SYG 1,000 MCG/10 ML SYRINGE ONE ×2 (07:09)
[2022-04-27] MEDS ORDERED: ROCURONIUM 10 MG/ML (5 ML VIAL) IV ONE (07:09)
[2022-04-27] MEDS ORDERED: PROPOFOL 10 MG/ML 20 ML VIAL IV ONE (07:09)
[2022-04-27] MEDS ORDERED: SODIUM CHLORIDE 0.9% (PF) 10 ML VIAL ONE (07:09)
[2022-04-27] MEDS ORDERED: ePHEDrine 50 MG/ML 1 ML VIAL ONE (07:09)
[2022-04-27] MEDS ORDERED: GLYCOPYRROLATE 0.2 MG/ML 2 ML VIAL ONE (07:09)
[2022-04-27] MEDS ORDERED: SUCCINYLCHOLINE CHLORIDE 200 MG/10 ML VIAL IV ONE (07:09)
[2022-04-27] MEDS ORDERED: fentaNYL (PF) 50 MCG/ML 2 ML AMP ONE (07:09)
[2022-04-27] MEDS ORDERED: LIDOCAINE 2% INJ 20 MG/ML (2 ML VIAL) ONE (07:09)
[2022-04-27] MEDS ORDERED: BUPIVACAINE (PF) 0.25% 30 ML VIAL SQ ONE ×2 (08:24)
[2022-04-27] MEDS ORDERED: LACTATED RINGERS 1,000 ML IV ONE (08:56)
--- NOTE | 2022-04-27 09:23 | P.OP ---
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 adhesions Procedure(s) Performed: Total Laparoscopic hysterectomy bilateral salpingectomy, lysis of adhesions using da niranjan, diagnostic cystoscopy Anesthesia: VINNY Surgeon: Mabel Garcia Global Engineering Manager #1: Fernanda Mckeon Estimated Blood Loss (ml): 200 IV fluids (ml): 900 Urine output (ml): 600 Pathology: other (uterus, cervix, bilateral fallopian tubes) Condition: stable Disposition: PACU Operative Findings: Normal appearing uterus with adhesions in the posterior cul-de-sac to the ovaries. Description of Procedure: Patient taken the operating room where general anesthesia was obtained without difficulty. She is prepped and draped in normal sterile fashion dorsal lithotomy position, legs placed in the Biju stirrups. Weighted speculum placed in the vagina and the anterior lip the cervix was grasped with single-tooth tenaculum. The uterus sounded to 6 cm and the cervix diameter was 3.5 cm. The appropriate manipulator tip and ring were placed on the Kandice manipulator. The Kandice manipulator was then placed in the uterus. Olmos catheter was also placed. Attention was then turned to the abdomen and gloves were changed. A 5 mm supraumbilical incision was made the scalpel and a 5 mm optical trocar was placed under direct visualization. 10 cm to the right of this and 2 cm down a 5 mm incision was made and 8 mm da Niranjan port was placed under direct visualization. Same measurements on the opposite side of the patient's abdomen, the 5 mm incision was made and 8 mm da Niranjan port was placed under direct visualization. In the left upper quadrant a 10 mm incision was made and a 10 mm optical trocar was placed under direct visualization. The 5 mm optical trocar was then replaced with the 8 mm da Niranjan camera port. The robot was docked on patient's right side. The camera was introduced and then the monopolar curved scissor and [place] bipolar placed under direct visualization. I broke scrub and went to the physician console. Survey of the pelvis revealed an obliterated posterior cul-de-sac. There was the both ovaries stuck to the back of the uterus. The left mesosalpinx was cauterized with the [place] bipolar and cut with the monopolar curved scissors and the fallopian tube on the left side was removed through port. I took care to separate the ovary from the back part of the uterus using the monopolar curved scissors. The left utero-ovarian ligament was cauterized with the [place] bipolar and cut with monopolar curved scissors. The left round ligament was cauterized with the [place] bipolar and cut with monopolar curved scissors. Anterior leaf of the broad ligament was then taken down using the monopolar curved scissors. The uterine artery was cauterized with the [place] bipolar and cut with monopolar curved scissors. The bladder flap was then started using the monopolar curved scissors. Attention was then turned to the right side of the patient's anatomy. The right mesosalpinx was cauterized with the [place] bipolar and cut with monopolar curved scissors and this fallopian tube was removed through the port. I started by taking down the ovary off the backside of the uterus. The right utero-ovarian ligament was cauterized with the [place] bipolar and cut with monopolar curved scissors. The right round ligament was cauterized with the [place] bipolar and cut with monopolar curved scissors. The anterior leaf was taken down using the monopolar curved scissors. The uterine artery was cauterized the [place] bipolar cut with monopolar curved scissors. The bladder flap was then finished on this side. Anterior colpotomy was made using the monopolar curved scissors. The rest of the uterus was from the vaginal cuff by following the ring around with the monopolar curved scissors through the uterosacral ligaments back to the anterior portion. Once the uterus and cervix were amputated they were pulled through the vaginal cuff. Hemostasis was assured. The instruments were changed for the Cardier forcep and the margo suture cut. The vaginal cuff was then closed using O stratafix barbed suture in a running fashion. Hemostasis was again assured and the pelvis was irrigated. Surgical snow powder was spread over the vaginal cuff and posterior cul de sac. All instruments were removed from the abdomen and the robot was undocked. I scrubbed back in to perform a cystoscopy. There were jets from both ureteral orifices. The abdominal incisions were closed with 4-0 Vicryl in a subcuticular fashion. Patient tolerated the procedure well, sponge and instrument counts correct 2 and she was taken to recovery room in stable condition condition
[2022-04-27] MEDS ORDERED: KETOROLAC 15 MG/ML 1 ML VIAL IVP ONE (09:27)
[2022-04-27] MEDS ORDERED: HYDROmorphone 0.5 MG/0.5 ML SYRINGE IVP ONE ×2 (09:40)
--- NOTE | 2022-04-27 10:25 | P.ANPRN ---
Procedure Note - Anesthesia - Nerve Block Performed Bilateral Erector Spinae Single Time Out Performed: Yes (0649) Date of Procedure: 04/27/22 Procedure Start Time: 06:50 Procedure Stop Time: 06:55 Location of Patient: PreOp Indication: Acute Post-Operative Pain, Requested by Surgeon Specifically requested for management of pain by DrJodee: Mabel Garcia Sedation Type: Sedate with meaningful contact maintained Preparation: Sterile Prep Position: Supine Catheter: None Needle Types: Pajunk Needle Gauge: 21 Ultrasound used to visualize needle placement: Yes Ultrasound used to observe medication spread: Yes Injectate: 0.5% Ropivacaine (see comment for volume) (15cc + 5cc nacl pf) Blood Aspirated: No Pain Paresthesia on Injection Noted: No Resistance on Injection: Normal Image Stored and Saved: Yes Events: Uneventful and Well Tolerated
[2022-04-27] MEDS ORDERED: Acetaminophen-Codeine 300-30mg TAB PO PRN (10:27)
[2022-04-27] MEDS ORDERED: IBUPROFEN 600 MG TAB PO PRN (10:27)
[2022-04-27] MEDS ORDERED: METOCLOPRAMIDE 5 MG/ML 2 ML VIAL IVP PRN (10:27)
[2022-04-27] MEDS ORDERED: ONDANSETRON 4 MG/2 ML VIAL IVP PRN (10:27)
[2022-04-27] MEDS ORDERED: SIMETHICONE 80 MG CHEWABLE PO PRN (10:27)
[2022-04-27] MEDS: KETOROLAC 15 MG/ML 1 ML VIAL IVP PRN ×2 (15:29→21:30)
[2022-04-27] MEDS: Acetaminophen-Codeine 300-30mg TAB PO PRN (18:05)
[2022-04-27] MEDS ORDERED: SENNOSIDES-DOCUSATE SODIUM 1 EACH TAB PO SCH (21:00)
[2022-04-28] MEDS: Acetaminophen-Codeine 300-30mg TAB PO PRN (06:11)
[2022-04-28 06:49] LABS: Basophils % (A) 0 %; Eosinophils # (A) 0.1 k/uL (0-0.7); Eosinophils % (A) 1 %; HCT 37.6 % (34.0-46.0); HGB 12.4 gm/dL (11.4-16.0); Lymphocytes # (A) 4.1 k/uL (1.0-4.8); Lymphocytes % (A) 31 %; MCH 28.6 pg (25.0-35.0); MCV 86.5 fL (80.0-100.0); Mean Platelet Volume 6.7; Monocytes # (A) 0.7 k/uL (0-1.0); Monocytes % (A) 5 %; Neutrophils # (A) 8.1 k/uL (1.3-7.7); Neutrophils % (A) 61 %; Platelet Count 330 k/uL (150-450); RBC 4.35 m/uL (3.80-5.40); WBC 13.2 k/uL (3.8-10.6)
[2022-04-28 07:32] VITALS: BP 104/65; PULSE 77; RESP 16; TEMP 98.4
--- NOTE | 2022-04-28 08:34 | P.DS ---
Providers Date of admission: 04/28/22 07:49 Expected date of discharge: 04/28/22 Attending physician: Mabel Garcia Primary care physician: Whit Henry - Discharge Diagnosis(es) (1) Post endometrial ablation syndrome Current Visit: No Status: Resolved (2) Dysmenorrhea Current Visit: No Status: Resolved (3) Fibroid uterus Current Visit: No Status: Resolved (4) History of robot-assisted laparoscopic hysterectomy Current Visit: Yes Status: Acute Hospital Course: Patient presented for total laparoscopic hysterectomy bilateral salpingectomy. She underwent this procedure without complication. Postoperative course was uneventful. She denies nausea, vomiting, chest pain, shortness of breath or calf pain. Patient will be discharged home postoperative day #1 in stable condition to follow-up with me in 3 weeks. Plan - Discharge Summary Discharge Rx Participant: No New Discharge Prescriptions: New RX: Ibuprofen [Motrin] 600 mg PO Q6HR PRN #30 tab PRN Reason: Mild Discomfort RX: Acetaminophen-Codeine 300-30mg [Tylenol w/codeine #3] 2 each PO Q6HR PRN #20 tab PRN Reason: Severe Pain (Scale 7 To 10) No Action RX: Escitalopram [Lexapro] 20 mg PO HS Loratadine-Pseudoeph 10-240 mg [Claritin-D 24 Hour] 1 tab PO DAILY Discharge Medication List RX: Escitalopram [Lexapro] 20 mg PO HS 08/24/15 [History] Loratadine-Pseudoeph 10-240 mg [Claritin-D 24 Hour] 1 tab PO DAILY 04/22/22 [History] RX: Acetaminophen-Codeine 300-30mg [Tylenol w/codeine #3] 2 each PO Q6HR PRN #20 tab 04/28/22 [Rx] RX: Ibuprofen [Motrin] 600 mg PO Q6HR PRN #30 tab 04/28/22 [Rx] Follow up Appointment(s)/Referral(s): Gurjit Orozco, [NON-STAFF] - 1 Week Mabel Garcia DO [Doctor of Osteopathic Medicine] - 3 Weeks Discharge Disposition: HOME SELF-CARE
[2022-04-28] MEDS ORDERED: ACETAMINOPHEN TAB 325 MG TAB PO PRN (09:14)
== END 2022-04-28 09:45 | disposition home or self-care (01) ==
LOC: OR 05:37 → 4FBP 09:38 → OR 04-28 07:49
PROVIDERS: ADMIT Obstetrics & Gynecology; ATTEND Obstetrics & Gynecology
DX: N99.85 Post endometrial ablation syndrome (principal); N72 Inflammatory disease of cervix uteri; N87.9 Dysplasia of cervix uteri, unspecified; D25.9 Leiomyoma of uterus, unspecified; N80.03 Adenomyosis of the uterus; F32.A Depression, unspecified; F41.9 Anxiety disorder, unspecified; Z90.49 Acquired absence of other specified parts of digestive tract; Z98.51 Tubal ligation status; Z87.891 Personal history of nicotine dependence; Z82.3 Family history of stroke; Z83.3 Family history of diabetes mellitus; Z79.899 Other long term (current) drug therapy
CPT/HCPCS: 81025; 64999; 86900; 86901; 85025; 86850; 88307; 58571; G0378; J2250; J0330; J1100; J2710; J0690; J2405; J3010; J2795; J1885; J2370; J2704; J1170; J2001

== ENCOUNTER 2022-04-30 21:17 | Emergency (ER) | payer BC ==
[2022-04-30] MEDS ORDERED: SODIUM CHLORIDE 0.9% 1,000 ML IV STA ×2 (22:01)
[2022-04-30] MEDS ORDERED: SODIUM CHLORIDE 0.9% 500 ML 500 ML IV STA (22:01)
[2022-04-30] MEDS ORDERED: ACETAMINOPHEN TAB 500 MG TAB PO STA (22:01)
[2022-04-30] MEDS ORDERED: IBUPROFEN 800 MG TAB PO STA (22:02)
--- NOTE | 2022-04-30 22:04 | ED ---
Fever HPI - General Chief Complaint: Fever Stated Complaint: fever Time Seen by Provider: 04/30/22 21:34 Source: patient, RN notes reviewed, old records reviewed Mode of arrival: wheelchair Limitations: no limitations - History of Present Illness Initial Comments: This is a 46-year-old female to the emergency department for evaluation today. Patient presents today for evaluation of weakness fatigue not feeling well. Patient has no ALLERGIES felt warm sweaty chills muscle aches and body aches with positive fever. Has a significant recent medical history of hysterectomy 3 days ago. No significant change in bleeding, no abdominal pain. No dysuria. No cough or congestion. No rashes noted. MD Complaint: fever, malaise, weakness -: days(s) Temperature Source: subjective Context: recent procedure (Patient with recent hysterectomy) Associated Symptoms: chills, myalgias Treatments Prior to Arrival: none - Related Data Home Medications Medication Instructions Recorded Confirmed Escitalopram [Lexapro] 20 mg PO HS 08/24/15 04/27/22 Loratadine-Pseudoeph 10-240 mg 1 tab PO DAILY 04/22/22 04/27/22 [Claritin-D 24 Hour] Previous Rx's Medication Instructions Recorded Acetaminophen-Codeine 300-30mg 2 each PO Q6HR PRN #20 tab 04/28/22 [Tylenol w/codeine #3] Ibuprofen [Motrin] 600 mg PO Q6HR PRN #30 tab 04/28/22 Allergies Allergy/AdvReac Type Severity Reaction Status Date / Time No Known Allergies Allergy Verified 04/30/22 21:26 Review of Systems ROS Statement: Those systems with pertinent positive or pertinent negative responses have been documented in the HPI. ROS Other: All systems not noted in ROS Statement are negative. Past Medical History Past Medical History: No Reported History Additional Past Medical History / Comment(s): depresion, anxiety History of Any Multi-Drug Resistant Organisms: None Reported Past Surgical History: Cholecystectomy, Hysterectomy, Tonsillectomy, Tubal Ligation, Uterine Ablation Additional Past Surgical History / Comment(s): D&C with Chrissie Past Anesthesia/Blood Transfusion Reactions: No Reported Reaction Past Psychological History: Anxiety, Depression Smoking Status: Former smoker Past Alcohol Use History: None Reported Past Drug Use History: None Reported - Past Family History Father Family Medical History: CVA/TIA, Diabetes Mellitus Mother Additional Family Medical History / Comment(s): HEART ARRYTHMIA General Exam Limitations: no limitations General appearance: alert, in no apparent distress Head exam: Present: atraumatic, normocephalic, normal inspection Eye exam: Present: normal appearance, PERRL, EOMI. Absent: scleral icterus, conjunctival injection, periorbital swelling ENT exam: Present: normal exam, mucous membranes moist Neck exam: Present: normal inspection. Absent: tenderness, meningismus, lymphadenopathy Respiratory exam: Present: normal lung sounds bilaterally. Absent: respiratory distress, wheezes, rales, rhonchi, stridor Cardiovascular Exam: Present: normal rhythm, tachycardia, normal heart sounds. Absent: systolic murmur, diastolic murmur, rubs, gallop, clicks GI/Abdominal exam: Present: soft, normal bowel sounds. Absent: distended, tenderness, guarding, rebound, rigid Extremities exam: Present: normal inspection, full ROM, normal capillary refill. Absent: tenderness, pedal edema, joint swelling, calf tenderness Back exam: Present: normal inspection Neurological exam: Present: alert, oriented X3, CN II-XII intact Psychiatric exam: Present: normal affect, normal mood Skin exam: Present: warm, dry, intact, normal color. Absent: rash Course Vital Signs 04/30/22 04/30/22 21:26 23:14 Temperature 102.4 F H 100.1 F H Pulse Rate 110 H 87 Respiratory 18 18 Rate Blood Pressure 134/84 128/73 O2 Sat by Pulse 99 99 Oximetry - Reevaluation(s) Reevaluation #1: 04/30/22 22:04 Medical records reviewed Reevaluation #2: 05/01/22 00:06 symptoms are dramatically improved here in the ER Reevaluation #3: 05/01/22 00:06 Patient informed of results and questions are answered Reevaluation #4: 04/30/22 22:04 Differential Fever: Pneumonia, viral URI, endocarditis, myocarditis, pericarditis, otitis, sinusitis, peritonsillar Abscess, retropharyngeal Abscess, epiglottitis, peritonitis, appendicitis, [place] cystitis, diverticulitis, hepatitis, colitis, UTI, PID, TOA, pyelonephritis, prostatitis, epididymitis, meningitis, encephalitis, pulmonary embolism, CVA, thyroid storm, pancreatitis, adrenal crisis, cavernous sinus thrombosis, this is not meant to be an all-inclusive list. Reevaluation #5: 04/30/22 22:04 Was pt. sent in by a medical professional or institution? @ -no Did you speak to anyone other than the patient for history? @ -no Did you review nursing and triage notes? @ -agree Were old charts reviewed? @ -year prior sx evaluation Differential Diagnosis? @ -prior EKG interpreted by me (3pts min.)? @ -yes X-rays interpreted by me (1pt min.)? @ -yes CT interpreted by me (1pt min.)? @ -[none] U/S interpreted by me (1pt. min.)? @ -[none] What testing was considered but not performed? (CT, X-rays, U/S, labs)? Why? @ no What meds were considered but not given? Why? @ -[none] Did you discuss the management of the patient with other professionals? @ -did discuss with her Surgeon Dr Garcia Did you reconcile home meds? @ -[none] Was smoking cessation discussed for >3mins.? @ -[none] Was critical care preformed (if so, how long)? @ -[none] Were there social determinants of health that impacted care today? How? (Homelessness, low income, unemployed, alcoholism, drug addiction, transportation, low edu. Level, literacy, decrease access to med. care, fdc, rehab)? @ -no Was there de-escalation of care discussed even if they declined? (Discuss DNR or withdrawal of care, Hospice)? @ -no What co-morbidities impacted this encounter? (DM, HTN, Smoking, COPD, CAD, Cancer, CVA, Hep., AIDS, mental health diagnosis, sleep apnea, morbid obesity)? @ -no Was patient admitted / discharged? @ -dc Undiagnosed new problem with uncertain prognosis? @ -[none] Drug Therapy requiring intensive monitoring for toxicity (Heparin, Nitro, Insulin, Cardizem)? @ -[none] Were any procedures done? @ -[none] Diagnosis/symptom? @ -[default] Acute, or Chronic, or Acute on Chronic? @ -[default] Uncomplicated (without systemic symptoms) or Complicated (systemic symptoms)? @ -[default] Side effects of treatment? @ -[none] Exacerbation, Progression, or Severe Exacerbation] @ -[no] Poses a threat to life or bodily function? @ -[no] 05/01/22 00:06 Medical Decision Making - Medical Decision Making 46 female DF for evaluation patient Dese for evaluation of fever this is a postoperative fever. No known cause found here in the emergency department. Patient feels well currently. Encouraged to continue Motrin Tylenol at home with follow-up with primary care and Dr. Garcia as directed - Lab Data Result diagrams: 04/30/22 22:18 04/30/22 22:18 Lab Results 04/30/22 04/30/22 04/30/22 Range/Units 22:18 22:18 22:18 WBC 17.2 H (3.8-10.6) k/uL RBC 4.35 (3.80-5.40) m/uL Hgb 12.2 (11.4-16.0) gm/dL Hct 37.2 (34.0-46.0) % MCV 85.7 (80.0-100.0) fL MCH 28.1 (25.0-35.0) pg MCHC 32.8 (31.0-37.0) g/dL RDW 12.8 (11.5-15.5) % Plt Count 267 (150-450) k/uL MPV 6.8 Neutrophils % 83 % Lymphocytes % 11 % Monocytes % 4 % Eosinophils % 1 % Basophils % 0 % Neutrophils # 14.2 H (1.3-7.7) k/uL Lymphocytes # 1.9 (1.0-4.8) k/uL Monocytes # 0.7 (0-1.0) k/uL Eosinophils # 0.2 (0-0.7) k/uL Basophils # 0.1 (0-0.2) k/uL Sodium 136 L (137-145) mmol/L Potassium 4.6 (3.5-5.1) mmol/L Chloride 103 (98-107) mmol/L Carbon Dioxide 28 (22-30) mmol/L Anion Gap 5 mmol/L BUN 12 (7-17) mg/dL Creatinine 0.49 L (0.52-1.04) mg/dL Est GFR (CKD-EPI)AfAm >90 (>60 ml/min/1.73 sqM) Est GFR (CKD-EPI)NonAf >90 (>60 ml/min/1.73 sqM) Glucose 109 H (74-99) mg/dL Plasma Lactic Acid Blake 2.0 (0.7-2.0) mmol/L Calcium 8.5 (8.4-10.2) mg/dL Phosphorus 3.1 (2.5-4.5) mg/dL Magnesium 1.6 (1.6-2.3) mg/dL Total Bilirubin 0.8 (0.2-1.3) mg/dL AST 157 H (14-36) U/L ALT 200 H (4-34) U/L Alkaline Phosphatase 86 (38-126) U/L C-Reactive Protein 3.3 H (<1.0) mg/dL Total Protein 6.4 (6.3-8.2) g/dL Albumin 3.5 (3.5-5.0) g/dL Urine Color Urine Appearance (Clear) Urine pH (5.0-8.0) Ur Specific [place] (1.001-1.035) Urine Protein (Negative) Urine Glucose (UA) (Negative) Urine Ketones (Negative) Urine Blood (Negative) Urine Nitrite (Negative) Urine Bilirubin (Negative) Urine Urobilinogen (<2.0) mg/dL Ur Leukocyte Esterase (Negative) Influenza Type A (PCR) (Not Detectd) Influenza Type B (PCR) (Not Detectd) RSV (PCR) (Not Detectd) SARS-CoV-2 (PCR) (Not Detectd) 04/30/22 04/30/22 Range/Units 22:23 22:45 WBC (3.8-10.6) k/uL RBC (3.80-5.40) m/uL Hgb (11.4-16.0) gm/dL Hct (34.0-46.0) % MCV (80.0-100.0) fL MCH (25.0-35.0) pg MCHC (31.0-37.0) g/dL RDW (11.5-15.5) % Plt Count (150-450) k/uL MPV Neutrophils % % Lymphocytes % % Monocytes % % Eosinophils % % Basophils % % Neutrophils # (1.3-7.7) k/uL Lymphocytes # (1.0-4.8) k/uL Monocytes # (0-1.0) k/uL Eosinophils # (0-0.7) k/uL Basophils # (0-0.2) k/uL Sodium (137-145) mmol/L Potassium (3.5-5.1) mmol/L Chloride (98-107) mmol/L Carbon Dioxide (22-30) mmol/L Anion Gap mmol/L BUN (7-17) mg/dL Creatinine (0.52-1.04) mg/dL Est GFR (CKD-EPI)AfAm (>60 ml/min/1.73 sqM) Est GFR (CKD-EPI)NonAf (>60 ml/min/1.73 sqM) Glucose (74-99) mg/dL Plasma Lactic Acid Blake (0.7-2.0) mmol/L Calcium (8.4-10.2) mg/dL Phosphorus (2.5-4.5) mg/dL Magnesium (1.6-2.3) mg/dL Total Bilirubin (0.2-1.3) mg/dL AST (14-36) U/L ALT (4-34) U/L Alkaline Phosphatase (38-126) U/L C-Reactive Protein (<1.0) mg/dL Total Protein (6.3-8.2) g/dL Albumin (3.5-5.0) g/dL Urine Color Yellow Urine Appearance Clear (Clear) Urine pH 7.0 (5.0-8.0) Ur Specific [place] 1.023 (1.001-1.035) Urine Protein Trace H (Negative) Urine Glucose (UA) Negative (Negative) Urine Ketones Negative (Negative) Urine Blood Negative (Negative) Urine Nitrite Negative (Negative) Urine Bilirubin Negative (Negative) Urine Urobilinogen 2.0 (<2.0) mg/dL Ur Leukocyte Esterase Negative (Negative) Influenza Type A (PCR) Not Detected (Not Detectd) Influenza Type B (PCR) Not Detected (Not Detectd) RSV (PCR) Not Detected (Not Detectd) SARS-CoV-2 (PCR) Not Detected (Not Detectd) - Radiology Data Radiology results: report reviewed (Chest x-rays negative for acute disease, CT abdomen and pelvis negative for acute disease), image reviewed Disposition Clinical Impression: Fever Disposition: HOME SELF-CARE Condition: Good Instructions (If sedation given, give patient instructions): Fever in Adults (ED) Is patient prescribed a controlled substance at d/c from ED?: No Referrals: Whit Henry MD [Primary Care Provider] - 1-2 days Time of Disposition: 00:10
[2022-04-30 22:25] LABS: Basophils # (A) 0.1 k/uL (0-0.2); Basophils % (A) 0 %; Eosinophils # (A) 0.2 k/uL (0-0.7); Eosinophils % (A) 1 %; HCT 37.2 % (34.0-46.0); HGB 12.2 gm/dL (11.4-16.0); Lymphocytes # (A) 1.9 k/uL (1.0-4.8); Lymphocytes % (A) 11 %; MCH 28.1 pg (25.0-35.0); MCHC 32.8 g/dL (31.0-37.0); MCV 85.7 fL (80.0-100.0); Mean Platelet Volume 6.8; Monocytes # (A) 0.7 k/uL (0-1.0); Monocytes % (A) 4 %; Neutrophils # (A) 14.2 k/uL (1.3-7.7); Neutrophils % (A) 83 %; Platelet Count 267 k/uL (150-450); RBC 4.35 m/uL (3.80-5.40); RDW 12.8 % (11.5-15.5); WBC 17.2 k/uL (3.8-10.6)
[2022-04-30 22:37] LABS: ALT 200 U/L (4-34); AST 157 U/L (14-36); African American GFR (CKD) >90 (>60 ml/min/1.73 sqM); Albumin 3.5 g/dL (3.5-5.0); Alkaline Phosphatase 86 U/L (38-126); Anion Gap 5 mmol/L; Blood Urea Nitrogen 12 mg/dL (7-17); C Reactive Protein 3.3 mg/dL (<1.0); Calcium 8.5 mg/dL (8.4-10.2); Carbon Dioxide 28 mmol/L (22-30); Chloride 103 mmol/L (98-107); Glucose 109 mg/dL (74-99); Magnesium 1.6 mg/dL (1.6-2.3); Non-African American GFR(CKD) >90 (>60 ml/min/1.73 sqM); Phosphorus 3.1 mg/dL (2.5-4.5); Sodium 136 mmol/L (137-145); Total Bilirubin 0.8 mg/dL (0.2-1.3); Total Protein 6.4 g/dL (6.3-8.2)
[2022-04-30 22:38] LABS: Potassium 4.6 mmol/L (3.5-5.1)
--- NOTE | 2022-04-30 22:59 | XR ---
EXAMINATION TYPE: XR chest 1V portable DATE OF EXAM: 04/30/2022 COMPARISON: 07/31/2016 HISTORY: Chest pain FINDINGS: There is no heart failure nor confluent pneumonic infiltrate. Costophrenic angles are clear. There ar e no hilar masses. The bony thorax is intact. IMPRESSION: No active cardiopulmonary disease. No change.
[2022-04-30 23:04] LABS: Appearance,Urine Clear (Clear); Bilirubin,Urine Negative (Negative); Blood,Urine Negative (Negative); Color,Urine Yellow; Glucose,Urine (UA) Negative (Negative); Ketones,Urine Negative (Negative); Leukocyte Esterase,Urine Negative (Negative); Nitrite,Urine Negative (Negative); Protein,Urine Trace (Negative); Specific Gravity,Urine 1.023 (1.001-1.035)
--- NOTE | 2022-04-30 23:53 | CT ---
EXAMINATION TYPE: CT abdomen pelvis w con DATE OF EXAM: 04/30/2022 COMPARISON: 08/14/2019 HISTORY: HYSTERECTONMY ON 04-27-22. PT HAS FEVER. NO PAIN CT DLP: 2482.8 mGycm Automated exposure control for dose reduction was used. CONTRAST: Performed with IV Contrast, patient injected with 100 mL of Isovue 300. Images obtained from the diaphragm to the floor the pelvis with IV contrast. Lung bases are clear. No pleural effusion. Heart size is normal. No pericardial effusion. There are c lips from cholecystectomy. Liver spleen stomach pancreas appear intact. The bile ducts are not dilate d. There is 1.9 cm rounded soft tissue density right adrenal mass without change. Kidneys show satisfactory contrast opacification. No hydronephrosis. Ureters are not dilated. Delayed images show normal renal excretion. No retroperitoneal adenopathy. The bladder distends smoothly. Th ere is air in the urinary bladder consistent with catheterization. Delayed images show normal excreti on of contrast into the urinary bladder. No free fluid in the pelvis. There is mild fat stranding in the pelvis consistent with recent surgery. No drainable fluid collection. There is small amount of fluid in the paracolic gutters. There is 2 cm area of increased density in t he subcutaneous fat anterior left side of the abdomen could be surgery site. Appendix not clearly see n. No significant appendix. The lumbar vertebrae have normal alignment. No compression fracture. Posterior elements are intact. B hernan pelvis is intact. The hip joints are intact. There is mild wall thickening and fat stranding arou nd the mid sigmoid colon. IMPRESSION: Postsurgical changes. Wall thickening and fat stranding of the mid sigmoid colon suggestive of some n onspecific colitis. Minimal fluid in the pelvis and paracolic gutters. No drainable fluid collection.
[2022-05-01 00:37] VITALS: BP 132/77; PULSE 78; RESP 99; TEMP 99.8
== END 2022-05-01 00:37 | disposition home or self-care (01) ==
LOC: EC 21:17
DX: R50.9 Fever, unspecified (principal); F41.9 Anxiety disorder, unspecified; F32.A Depression, unspecified; Z87.891 Personal history of nicotine dependence; Z20.822 Contact with and (suspected) exposure to COVID-19
CPT/HCPCS: 36415; 80053; 83605; 83735; 84100; 85025; 86140; 81003; 87040; 87636; 71045; 74177; 99284; 96360; Q9967

== ENCOUNTER 2022-05-03 15:41 | Inpatient (IN) | payer BC, OTHER ==
--- NOTE | 2022-05-03 17:14 | ED ---
General Adult HPI - General Source: patient, RN notes reviewed Mode of arrival: wheelchair <Juli Johnson - Last Filed: 05/03/22 17:20> <Puja Son - Last Filed: 05/04/22 03:36> - General Chief complaint: Recheck/Abnormal Lab/Rx Stated complaint: post op Time Seen by Provider: 05/03/22 17:14 - History of Present Illness Initial comments: Patient is a 46-year-old female who presents to the emergency department for possible postoperative complication. Patient had a hysterectomy on 04/[address] Garcia. The surgery went well however patient presented in our emergency department on 04/30 for evaluation of fever. At this time patient felt weak and fatigued with body aches. There was leukocytosis at 17.2. Influenza, RSV, covid-19 were not detected. No obvious source of fever, patient discharged. Patient currently reports no improvement of symptoms. She reports vaginal pain and today felt a bubbling sensation in her vagina. She then went to the bathroom and noticed stool coming out of her vagina. Reports multiple episodes of stool from vagina today. Also reports fever of 100.1 F, nausea without vomiting. No abdominal pain. (Juli Johnson) Patient is a 79-year-old female presenting to the emergency department after passing stool and gas through her vagina today. Patient had a hysterectomy performed on 04/[address] Garcia. Patient was seen here recently for postop fever. Patient states that since this recent visit her fever has improved. She denies any abdominal pain. (Puja Son) - Related Data Home Medications Medication Instructions Recorded Confirmed Escitalopram [Lexapro] 20 mg PO HS 08/24/15 04/27/22 Loratadine-Pseudoeph 10-240 mg 1 tab PO DAILY 04/22/22 04/27/22 [Claritin-D 24 Hour] Previous Rx's Medication Instructions Recorded Acetaminophen-Codeine 300-30mg 2 each PO Q6HR PRN #20 tab 04/28/22 [Tylenol w/codeine #3] Ibuprofen [Motrin] 600 mg PO Q6HR PRN #30 tab 04/28/22 Allergies Allergy/AdvReac Type Severity Reaction Status Date / Time No Known Allergies Allergy Verified 05/03/22 16:15 Review of Systems ROS Other: All systems not noted in ROS Statement are negative. <Juli Johnson - Last Filed: 05/03/22 17:20> ROS Other: All systems not noted in ROS Statement are negative. <Puja Son - Last Filed: 05/04/22 03:36> ROS Statement: Those systems with pertinent positive or pertinent negative responses have been documented in the HPI. Past Medical History Past Medical History: No Reported History Additional Past Medical History / Comment(s): depresion, anxiety History of Any Multi-Drug Resistant Organisms: None Reported Past Surgical History: Cholecystectomy, Hysterectomy, Tonsillectomy, Tubal Ligation, Uterine Ablation Additional Past Surgical History / Comment(s): D&C with [employer] Past Anesthesia/Blood Transfusion Reactions: No Reported Reaction Past Psychological History: Anxiety, Depression Smoking Status: Former smoker Past Alcohol Use History: None Reported Past Drug Use History: None Reported - Past Family History Father Family Medical History: CVA/TIA, Diabetes Mellitus Mother Additional Family Medical History / Comment(s): HEART ARRYTHMIA <Juli Johnson - Last Filed: 05/03/22 17:20> General Exam Limitations: no limitations General appearance: alert, in no apparent distress Head exam: Present: atraumatic, normocephalic, normal inspection Eye exam: Present: normal appearance Neck exam: Present: normal inspection, full ROM Respiratory exam: Present: normal lung sounds bilaterally. Absent: respiratory distress, wheezes, rales, rhonchi, stridor Cardiovascular Exam: Present: regular rate, normal rhythm, normal heart sounds. Absent: systolic murmur, diastolic murmur, rubs, gallop, clicks GI/Abdominal exam: Present: soft. Absent: distended, tenderness, guarding, rebound, rigid Neurological exam: Present: alert, oriented X3, CN II-XII intact Psychiatric exam: Present: normal affect, normal mood Skin exam: Present: warm, dry, intact, normal color. Absent: rash <Puja Son - Last Filed: 05/04/22 03:36> Course Vital Signs 05/03/22 05/03/22 05/03/22 16:12 20:48 21:00 Temperature 98.3 F Pulse Rate 79 72 70 Respiratory 16 16 16 Rate Blood Pressure 100/69 130/77 131/75 O2 Sat by Pulse 97 100 97 Oximetry 05/03/22 05/03/22 05/04/22 22:00 23:00 00:00 Temperature Pulse Rate 74 72 68 Respiratory 16 16 16 Rate Blood Pressure 130/74 130/76 136/81 O2 Sat by Pulse 98 98 98 Oximetry 05/04/22 02:12 Temperature Pulse Rate 72 Respiratory 16 Rate Blood Pressure 103/58 O2 Sat by Pulse 97 Oximetry Medical Decision Making - Lab Data Result diagrams: 05/03/22 20:43 05/03/22 20:43 <Puja Son - Last Filed: 05/04/22 03:36> - Medical Decision Making Was pt. sent in by a medical professional or institution (, PA, ENGINEER OF SYSTEM DEVELOPMENT, urgent care, hospital, or [facility]...) When possible be specific @ -No Did you speak to anyone other than the patient for history (EMS, parent, family, police, friend...)? What history was obtained from this source @ -No Did you review nursing and triage notes (agree or disagree)? Why? @ -I reviewed and agree with nursing and triage notes Were old charts reviewed (outside hosp., previous admission, EMS record, old EKG, old radiological studies, urgent care reports/EKG's, [facility] records)? Report findings @ -No old charts were reviewed Differential Diagnosis (chest pain, altered mental status, abdominal pain women, abdominal pain men, vaginal bleeding, weakness, fever, dyspnea, syncope, headache, dizziness, GI bleed, back pain, seizure, CVA, palpatations, mental health)? @ - Differential includes fistula, infectious process, this is not a comprehensive list EKG interpreted by me (3pts min.). @ -As above X-rays interpreted by me (1pt min.). @ -None done CT interpreted by me (1pt min.). @ -No, radiologist report is reviewed. Large amount of vaginal areas consisten t with rectovaginal fistula U/S interpreted by me (1pt. min.). @ -None done What testing was considered but not performed or refused? (CT, X-rays, U/S, labs)? Why? @ -None What meds were considered but not given or refused? Why? @ -None Did you discuss the management of the patient with other professionals (professionals i.e. , PA, ENGINEER OF SYSTEM DEVELOPMENT, lab, RT, psych nurse, family welfare social work professor, note taker, teacher, chief revenue officer, manager rn case)? Give summary @ -Discussed this case with [employer] elevator constructor Dr. Elliott Was smoking cessation discussed for >3mins.? @ -No Was critical care preformed (if so, how long)? @ -No Were there social determinants of health that impacted care today? How? (Homelessness, low income, unemployed, alcoholism, drug addiction, transportation, low edu. Level, literacy, decrease access to med. care, long-term, rehab)? @ -No Was there de-escalation of care discussed even if they declined (Discuss DNR or withdrawal of care, Hospice)? DNR status @ -No What co-morbidities impacted this encounter? (DM, HTN, Smoking, COPD, CAD, Cancer, CVA, ARF, Chemo, Hep., AIDS, mental health diagnosis, sleep apnea, morbid obesity)? @ -None Was patient admitted / discharged? Hospital course, mention meds given and route, prescriptions, significant lab abnormalities, going to OR and other pertinent info. @ -Patient is a 46-year-old female presenting for evaluation after passing gas and fecal matter through the vagina today. Patient had a laparoscopic hysterectomy performed on 04/[address] of the abdomen and pelvis shows rectovaginal fistula. WBC 14.4. Patient is given one dose of Zosyn. I spoke with [employer] elevator constructor Dr. Elliott, he advised admission under Dr. Garcia and requested a general surgery consult. Patient is agreeable with admission. I discussed this case with my attending Dr. Garcia. Undiagnosed new problem with uncertain prognosis? @ -No Drug Therapy requiring intensive monitoring for toxicity (Heparin, Nitro, Insulin, Cardizem)? @ -No Were any procedures done? @ -No Diagnosis/symptom? @ -Rectovaginal fistula Acute, or Chronic, or Acute on Chronic? @ -Acute Uncomplicated (without systemic symptoms) or Complicated (systemic symptoms)? @ -Complicated Side effects of treatment? @ -No Exacerbation, Progression, or Severe Exacerbation? @ -No Poses a threat to life or bodily function? How? (Chest pain, [place], [place], pneumonia, PE, COPD, DKA, ARF, appy, cholecystitis, CVA, Diverticulitis, Homicidal, Suicidal, threat to staff... and all critical care pts) @ -Yes (Puja Son) - Lab Data Lab Results 05/03/22 05/03/22 05/03/22 Range/Units 19:52 20:43 20:43 WBC 14.4 H (3.8-10.6) k/uL RBC 4.14 (3.80-5.40) m/uL Hgb 11.5 (11.4-16.0) gm/dL Hct 36.7 (34.0-46.0) % MCV 88.7 (80.0-100.0) fL MCH 27.8 (25.0-35.0) pg MCHC 31.4 (31.0-37.0) g/dL RDW 13.3 (11.5-15.5) % Plt Count 352 (150-450) k/uL MPV 7.2 Neutrophils % 71 % Lymphocytes % 22 % Monocytes % 4 % Eosinophils % 2 % Basophils % 0 % Neutrophils # 10.2 H (1.3-7.7) k/uL Lymphocytes # 3.2 (1.0-4.8) k/uL Monocytes # 0.5 (0-1.0) k/uL Eosinophils # 0.3 (0-0.7) k/uL Basophils # 0.0 (0-0.2) k/uL Sodium 140 (137-145) mmol/L Potassium 4.4 (3.5-5.1) mmol/L Chloride 105 (98-107) mmol/L Carbon Dioxide 29 (22-30) mmol/L Anion Gap 6 mmol/L BUN 11 (7-17) mg/dL Creatinine 0.46 L (0.52-1.04) mg/dL Est GFR (CKD-EPI)AfAm >90 (>60 ml/min/1.73 sqM) Est GFR (CKD-EPI)NonAf >90 (>60 ml/min/1.73 sqM) Glucose 85 (74-99) mg/dL Plasma Lactic Acid Blake (0.7-2.0) mmol/L Calcium 8.8 (8.4-10.2) mg/dL Total Bilirubin 0.7 (0.2-1.3) mg/dL AST 175 H (14-36) U/L ALT 235 H (4-34) U/L Alkaline Phosphatase 175 H (38-126) U/L Total Protein 6.4 (6.3-8.2) g/dL Albumin 3.4 L (3.5-5.0) g/dL Urine Color Yellow Urine Appearance Cloudy H (Clear) Urine pH 6.0 (5.0-8.0) Ur Specific [place] 1.011 (1.001-1.035) Urine Protein Negative (Negative) Urine Glucose (UA) Negative (Negative) Urine Ketones Negative (Negative) Urine Blood Small H (Negative) Urine Nitrite Negative (Negative) Urine Bilirubin Negative (Negative) Urine Urobilinogen 2.0 (<2.0) mg/dL Ur Leukocyte Esterase Moderate H (Negative) Urine WBC 9 H (0-5) /hpf Ur Squamous Epith Cells 1 (0-4) /hpf Ur Renal Epithelial Cell <1 (0) /hpf Amorphous Sediment Occasional H (None) /hpf Urine Bacteria Many H (None) /hpf Hyaline Casts 2 (0-2) /lpf Urine Mucus Many H (None) /hpf 05/03/22 Range/Units 20:43 WBC (3.8-10.6) k/uL RBC (3.80-5.40) m/uL Hgb (11.4-16.0) gm/dL Hct (34.0-46.0) % MCV (80.0-100.0) fL MCH (25.0-35.0) pg MCHC (31.0-37.0) g/dL RDW (11.5-15.5) % Plt Count (150-450) k/uL MPV Neutrophils % % Lymphocytes % % Monocytes % % Eosinophils % % Basophils % % Neutrophils # (1.3-7.7) k/uL Lymphocytes # (1.0-4.8) k/uL Monocytes # (0-1.0) k/uL Eosinophils # (0-0.7) k/uL Basophils # (0-0.2) k/uL Sodium (137-145) mmol/L Potassium (3.5-5.1) mmol/L Chloride (98-107) mmol/L Carbon Dioxide (22-30) mmol/L Anion Gap mmol/L BUN (7-17) mg/dL Creatinine (0.52-1.04) mg/dL Est GFR (CKD-EPI)AfAm (>60 ml/min/1.73 sqM) Est GFR (CKD-EPI)NonAf (>60 ml/min/1.73 sqM) Glucose (74-99) mg/dL Plasma Lactic Acid Blake 0.9 (0.7-2.0) mmol/L Calcium (8.4-10.2) mg/dL Total Bilirubin (0.2-1.3) mg/dL AST (14-36) U/L ALT (4-34) U/L Alkaline Phosphatase (38-126) U/L Total Protein (6.3-8.2) g/dL Albumin (3.5-5.0) g/dL Urine Color Urine Appearance (Clear) Urine pH (5.0-8.0) Ur Specific [place] (1.001-1.035) Urine Protein (Negative) Urine Glucose (UA) (Negative) Urine Ketones (Negative) Urine Blood (Negative) Urine Nitrite (Negative) Urine Bilirubin (Negative) Urine Urobilinogen (<2.0) mg/dL Ur Leukocyte Esterase (Negative) Urine WBC (0-5) /hpf Ur Squamous Epith Cells (0-4) /hpf Ur Renal Epithelial Cell (0) /hpf Amorphous Sediment (None) /hpf Urine Bacteria (None) /hpf Hyaline Casts (0-2) /lpf Urine Mucus (None) /hpf Disposition <Juli Johnson - Last Filed: 05/03/22 17:20> Time of Disposition: 02:45 Decision to Admit Reason: Admit from EC Decision Date: 05/04/22 Decision Time: 02:45 <Puja Son - Last Filed: 05/04/22 03:36> Clinical Impression: Rectovaginal fistula Disposition: ADMITTED IP TO THIS [facility] Condition: Fair
[2022-05-03 20:17] LABS: Amorphous Sediment,Urine Occasional /hpf; Appearance,Urine Cloudy (Clear); Bacteria,Urine Many /hpf; Bilirubin,Urine Negative (Negative); Blood,Urine Small (Negative); Color,Urine Yellow; Glucose,Urine (UA) Negative (Negative); Hyaline Casts,Urine 2 /lpf (0-2); Ketones,Urine Negative (Negative); Leukocyte Esterase,Urine Moderate (Negative); Mucus,Urine Many /hpf; Nitrite,Urine Negative (Negative); Protein,Urine Negative (Negative); Renal Epithelial Cells,Urine <1 /hpf (0); Specific Gravity,Urine 1.011 (1.001-1.035); Squamous Epithelial Cell,Urine 1 /hpf (0-4); WBC,Urine 9 /hpf (0-5)
[2022-05-03 20:59] LABS: Basophils % (A) 0 %; Eosinophils # (A) 0.3 k/uL (0-0.7); Eosinophils % (A) 2 %; HCT 36.7 % (34.0-46.0); HGB 11.5 gm/dL (11.4-16.0); Lymphocytes # (A) 3.2 k/uL (1.0-4.8); Lymphocytes % (A) 22 %; MCH 27.8 pg (25.0-35.0); MCHC 31.4 g/dL (31.0-37.0); MCV 88.7 fL (80.0-100.0); Mean Platelet Volume 7.2; Monocytes # (A) 0.5 k/uL (0-1.0); Monocytes % (A) 4 %; Neutrophils # (A) 10.2 k/uL (1.3-7.7); Neutrophils % (A) 71 %; Platelet Count 352 k/uL (150-450); RBC 4.14 m/uL (3.80-5.40); RDW 13.3 % (11.5-15.5); WBC 14.4 k/uL (3.8-10.6)
[2022-05-03 21:21] LABS: ALT 235 U/L (4-34); AST 175 U/L (14-36); African American GFR (CKD) >90 (>60 ml/min/1.73 sqM); Albumin 3.4 g/dL (3.5-5.0); Alkaline Phosphatase 175 U/L (38-126); Anion Gap 6 mmol/L; Blood Urea Nitrogen 11 mg/dL (7-17); Calcium 8.8 mg/dL (8.4-10.2); Carbon Dioxide 29 mmol/L (22-30); Chloride 105 mmol/L (98-107); Glucose 85 mg/dL (74-99); Non-African American GFR(CKD) >90 (>60 ml/min/1.73 sqM); Sodium 140 mmol/L (137-145); Total Bilirubin 0.7 mg/dL (0.2-1.3); Total Protein 6.4 g/dL (6.3-8.2)
[2022-05-03 21:40] LABS: Potassium 4.4 mmol/L (3.5-5.1)
--- NOTE | 2022-05-04 02:02 | CT ---
EXAMINATION TYPE: CT abdomen pelvis w con DATE OF EXAM: 05/04/2022 COMPARISON: 04/30/2022 HISTORY: recent hysterectomy, stool leaking from vagina CT DLP: 2176.9 mGycm Automated exposure control for dose reduction was used. CONTRAST: Performed with IV Contrast, patient injected with 100cc mL of Isovue 300. Images obtained from the diaphragm to the floor the pelvis with the IV contrast. The lung bases are clear. No pleural effusion. Liver spleen and stomach pancreas appear intact. The b oundaries are nondilated. There are clips from cholecystectomy. The kidneys show satisfactory contrast opacification. No hydronephrosis. Delayed images show normal r enal excretion. No retroperitoneal adenopathy. Ureters are not dilated. There is 2 cm rounded right adrenal mass. The ureters are not dilated. The bladder distends smoothly. There is air in the vaginal vault. There is some air in the vagina. Vaginal air measures 7 cm. There is small amount of air in the urinary bladder. There is some wall thickening and fat stranding around the mid sigmoid colon. Appendix appears medial and appears normal. The lumbar vertebrae have normal alignment. No compressio n fracture. Bony pelvis is intact. The hip joints are intact. IMPRESSION: Large amount of vaginal air is consistent with rectovaginal fistula. In retrospect the area of air in creased slightly compared to recent exam 3 days ago. Small amount of air in the urinary bladder likel y from catheterization. Stable right adrenal mass.
[2022-05-04] MEDS ORDERED: KETOROLAC 15 MG/ML 1 ML VIAL IVP PRN (02:45)
[2022-05-04] MEDS ORDERED: NALOXONE 0.4 MG/ML 1 ML VIAL IV PRN (02:45)
[2022-05-04] MEDS ORDERED: PIPERACILLIN-TAZOBACTAM 3.375 GM in SODIUM CHLORIDE 0.9% 100 ML IVPB STA (02:46)
[2022-05-04] MEDS: SODIUM CHLORIDE 0.9% 1,000 ML IV SCH ×2 (03:04→15:32)
--- NOTE | 2022-05-04 06:20 | P.HPOB ---
History of Present Illness H&P Date: 05/04/22 Chief Complaint: Stool and air per vagina, status post hysterectomy This patient is a pleasant 46-year-old 5 para 0 female who had a laparoscopic (da Niranjan) hysterectomy per Dr. Garcia on April 27. Patient states that initially postoperatively she did well however approximately 3 days later at home she developed a high fever and was concerned so her took her to the emergency department. Evaluation at that time apparently did not show an obvious source of her fever however she did have some sigmoid thickening on CAT scan. Patient was discharged home. Patient states that yesterday she began having stool per her vagina and also air per her vagina. She was subsequently taken to the emergency department. Evaluation earlier this morning shows her white blood cell count to be elevated at 14.4 and CAT scan is repeated which shows a large amount of air in the vagina was some thickening of the mid sigmoid with some fat stranding. Patient denies any nausea or vomiting at this time. She is otherwise feeling well. I did review the operative note and it appears that she did have some adhesions on the posterior uterus from the ovary and this needed to be lysed. Review of Systems Constitutional: Reports as per HPI Gastrointestinal: Reports as per HPI Genitourinary: Reports as per HPI Past Medical History Past Medical History: No Reported History Additional Past Medical History / Comment(s): depresion, anxiety History of Any Multi-Drug Resistant Organisms: None Reported Past Surgical History: Cholecystectomy, Hysterectomy, Tonsillectomy, Tubal Ligation, Uterine Ablation Additional Past Surgical History / Comment(s): D&C with [employer] Past Anesthesia/Blood Transfusion Reactions: No Reported Reaction Past Psychological History: Anxiety, Depression Smoking Status: Former smoker Past Alcohol Use History: None Reported Additional Past Alcohol Use History / Comment(s): quit 25 yrs ago, started around age 15 and quit at age 22. Past Drug Use History: None Reported - Past Family History Father Family Medical History: CVA/TIA, Diabetes Mellitus Mother Additional Family Medical History / Comment(s): HEART ARRYTHMIA Medications and Allergies Home Medications Medication Instructions Recorded Confirmed Type Escitalopram [Lexapro] 20 mg PO HS 08/24/15 04/27/22 History Loratadine-Pseudoeph 10-240 mg 1 tab PO DAILY 04/22/22 04/27/22 History [Claritin-D 24 Hour] Acetaminophen-Codeine 300-30mg 2 each PO Q6HR PRN #20 tab 04/28/22 Rx [Tylenol w/codeine #3] Ibuprofen [Motrin] 600 mg PO Q6HR PRN #30 tab 04/28/22 Rx Allergies Allergy/AdvReac Type Severity Reaction Status Date / Time No Known Allergies Allergy Verified 05/03/22 16:15 Exam Vital Signs Temp Pulse Pulse Resp BP BP Pulse Ox 05/04/22 04:17 98.3 F 80 18 105/70 95 05/04/22 02:12 72 16 103/58 97 05/04/22 00:00 68 16 136/81 98 05/03/22 23:00 72 16 130/76 98 05/03/22 22:00 74 16 130/74 98 05/03/22 21:00 70 16 131/75 97 05/03/22 20:48 72 16 130/77 100 05/03/22 16:12 98.3 F 79 16 100/69 97 Intake and Output 05/03/22 05/03/22 05/04/22 14:59 22:59 06:59 Other: Weight 108.862 kg 108.862 kg - OBG Physical Exam Abdomen: bowel sounds normal (Patient has healing recent surgical incisions. One incision has a mild hematoma), no diffuse tenderness, no bruit present, no guarding noted, no hepatomegaly, no splenomegaly, no mass Vagina: Pelvic exam is not able to be done adequately in this hospital bed. Results Result Diagrams: 05/03/22 20:43 05/03/22 20:43 Abnormal Lab Results - Last 24 Hours (Table) 05/03/22 05/03/22 05/03/22 Range/Units 19:52 20:43 20:43 WBC 14.4 H (3.8-10.6) k/uL Neutrophils # 10.2 H (1.3-7.7) k/uL Creatinine 0.46 L (0.52-1.04) mg/dL AST 175 H (14-36) U/L ALT 235 H (4-34) U/L Alkaline Phosphatase 175 H (38-126) U/L Albumin 3.4 L (3.5-5.0) g/dL Urine Appearance Cloudy H (Clear) Urine Blood Small H (Negative) Ur Leukocyte Esterase Moderate H (Negative) Urine WBC 9 H (0-5) /hpf Amorphous Sediment Occasional H (None) /hpf Urine Bacteria Many H (None) /hpf Urine Mucus Many H (None) /hpf Assessment and Plan Assessment: This is a pleasant 46-year-old 5 para 0 female 7 days post operative from a laparoscopic hysterectomy with lysis of adhesions, with postoperative fever and now stool and flatus per vagina consistent with a fistula. Based on the operative note, this most likely is either a traumatic injury to the distal sigmoid colon or possible cautery injury due to the lysis of adhesions. I do not think this is a rectal vaginal fistula. I explained these findings to the patient and also explained to her that in general this is not a surgical procedure that we do. At this time we'll continue broad-spectrum antibiotics and consult general surgery to discuss further evaluation and treatment. Most likely she will need surgical exploration to find the area of injury and repair of this. I explained to the patient with Dr. Garcia is not currently in the office this week, however I would communicate her clinical condition to her. All of her questions are answered to the best of my ability. (1) Colovaginal fistula Current Visit: Yes Status: Acute Code(s): N82.4 - OTHER FEMALE INTESTINAL- GENITAL TRACT FISTULAE SNOMED Code(s): 622269510
[2022-05-04 07:11] LABS: Basophils % (A) 0 %; Eosinophils # (A) 0.3 k/uL (0-0.7); Eosinophils % (A) 2 %; HGB 10.1 gm/dL (11.4-16.0); Lymphocytes # (A) 3.4 k/uL (1.0-4.8); Lymphocytes % (A) 28 %; MCH 28.6 pg (25.0-35.0); MCHC 32.6 g/dL (31.0-37.0); MCV 87.8 fL (80.0-100.0); Monocytes # (A) 0.5 k/uL (0-1.0); Monocytes % (A) 4 %; Neutrophils # (A) 7.6 k/uL (1.3-7.7); Neutrophils % (A) 63 %; Platelet Count 326 k/uL (150-450); RBC 3.52 m/uL (3.80-5.40); RDW 13.3 % (11.5-15.5)
[2022-05-04] MEDS ORDERED: PEG 3350 (236 GM/BTL) + LYTES 4,000 ML BOTTLE PO ONE (09:32)
--- NOTE | 2022-05-04 09:54 | P.GSCN ---
History of Present Illness Consult date: 05/04/22 Reason for Consult: Colovaginal fistula History of present illness: This is a 46-year-old female who underwent previous laparoscopic robotic-as sisted hysterectomy. This was done with Dr. Garcia approximately one week ago. Patient states that 3 days postoperatively she had a fever of 102 and some abdominal pain. Patient was seen in the ER at that time. She was sent home. Patient then insufflated developed feculent drainage and passing flatus through her vagina. Patient describes liquid stool and some solid stools passing through her vagina. Patient was seen in the emergency last night. Another CAT scan was performed. There is some evidence of some sigmoid colon inflammation. There is no definite abscess. Patient currently has minimal pain. Past Medical History Past Medical History: No Reported History Additional Past Medical History / Comment(s): depresion, anxiety History of Any Multi-Drug Resistant Organisms: None Reported Past Surgical History: Cholecystectomy, Hysterectomy, Tonsillectomy, Tubal Liga tion, Uterine Ablation Additional Past Surgical History / Comment(s): D&C with [employer] Past Anesthesia/Blood Transfusion Reactions: No Reported Reaction Past Psychological History: Anxiety, Depression Smoking Status: Former smoker Past Alcohol Use History: None Reported Additional Past Alcohol Use History / Comment(s): quit 25 yrs ago, started celi und age 15 and quit at age 22. Past Drug Use History: None Reported - Past Family History Father Family Medical History: CVA/TIA, Diabetes Mellitus Mother Additional Family Medical History / Comment(s): HEART ARRYTHMIA Medications and Allergies Home Medications Medication Instructions Recorded Confirmed Type Escitalopram [Lexapro] 20 mg PO DAILY 08/24/15 05/04/22 History Loratadine-Pseudoeph 10-240 mg 1 tab PO DAILY 04/22/22 05/04/22 History [Claritin-D 24 Hour] Allergies Allergy/AdvReac Type Severity Reaction Status Date / Time No Known Allergies Allergy Verified 05/04/22 07:59 Surgical - Exam Vital Signs Temp Pulse Resp BP Pulse Ox 98.3 F 79 16 100/69 97 05/03/22 16:12 05/03/22 16:12 05/03/22 16:12 05/03/22 16:12 05/03/22 16:12 - General well developed, no distress - Eyes PERRL - ENT normal pinna - Neck no masses - Respiratory normal expansion - Cardiovascular Rhythm: regular - Abdomen Minimal tenderness. There is no rebound or guarding. Laparoscopic incisions are healing. Abdomen: soft Results - Labs 05/04/22 06:22 05/03/22 20:43 Abnormal Lab Results - Last 24 Hours (Table) 05/03/22 05/03/22 05/03/22 Range/Units 19:52 20:43 20:43 WBC 14.4 H (3.8-10.6) k/uL RBC (3.80-5.40) m/uL Hgb (11.4-16.0) gm/dL Hct (34.0-46.0) % Neutrophils # 10.2 H (1.3-7.7) k/uL Creatinine 0.46 L (0.52-1.04) mg/dL AST 175 H (14-36) U/L ALT 235 H (4-34) U/L Alkaline Phosphatase 175 H (38-126) U/L Albumin 3.4 L (3.5-5.0) g/dL Urine Appearance Cloudy H (Clear) Urine Blood Small H (Negative) Ur Leukocyte Esterase Moderate H (Negative) Urine WBC 9 H (0-5) /hpf Amorphous Sediment Occasional H (None) /hpf Urine Bacteria Many H (None) /hpf Urine Mucus Many H (None) /hpf 05/04/22 Range/Units 06:22 WBC 12.0 H (3.8-10.6) k/uL RBC 3.52 L (3.80-5.40) m/uL Hgb 10.1 L (11.4-16.0) gm/dL Hct 31.0 L (34.0-46.0) % Neutrophils # (1.3-7.7) k/uL Creatinine (0.52-1.04) mg/dL AST (14-36) U/L ALT (4-34) U/L Alkaline Phosphatase (38-126) U/L Albumin (3.5-5.0) g/dL Urine Appearance (Clear) Urine Blood (Negative) Ur Leukocyte Esterase (Negative) Urine WBC (0-5) /hpf Amorphous Sediment (None) /hpf Urine Bacteria (None) /hpf Urine Mucus (None) /hpf Diabetes panel 05/03/22 Range/Units 20:43 Sodium 140 (137-145) mmol/L Potassium 4.4 (3.5-5.1) mmol/L Chloride 105 (98-107) mmol/L Carbon Dioxide 29 (22-30) mmol/L BUN 11 (7-17) mg/dL Creatinine 0.46 L (0.52-1.04) mg/dL Glucose 85 (74-99) mg/dL Calcium 8.8 (8.4-10.2) mg/dL AST 175 H (14-36) U/L ALT 235 H (4-34) U/L Alkaline Phosphatase 175 H (38-126) U/L Total Protein 6.4 (6.3-8.2) g/dL Albumin 3.4 L (3.5-5.0) g/dL Calcium panel 05/03/22 Range/Units 20:43 Calcium 8.8 (8.4-10.2) mg/dL Albumin 3.4 L (3.5-5.0) g/dL Pituitary panel 05/03/22 Range/Units 20:43 Sodium 140 (137-145) mmol/L Potassium 4.4 (3.5-5.1) mmol/L Chloride 105 (98-107) mmol/L Carbon Dioxide 29 (22-30) mmol/L BUN 11 (7-17) mg/dL Creatinine 0.46 L (0.52-1.04) mg/dL Glucose 85 (74-99) mg/dL Calcium 8.8 (8.4-10.2) mg/dL Adrenal panel 05/03/22 Range/Units 20:43 Sodium 140 (137-145) mmol/L Potassium 4.4 (3.5-5.1) mmol/L Chloride 105 (98-107) mmol/L Carbon Dioxide 29 (22-30) mmol/L BUN 11 (7-17) mg/dL Creatinine 0.46 L (0.52-1.04) mg/dL Glucose 85 (74-99) mg/dL Calcium 8.8 (8.4-10.2) mg/dL Total Bilirubin 0.7 (0.2-1.3) mg/dL AST 175 H (14-36) U/L ALT 235 H (4-34) U/L Alkaline Phosphatase 175 H (38-126) U/L Total Protein 6.4 (6.3-8.2) g/dL Albumin 3.4 L (3.5-5.0) g/dL - Imaging CT scan - abdomen: report reviewed (Computed tomography scan of the abdomen pelvis was reviewed with Dr. Howell. There appears to be a colovaginal fistula between the sigmoid colon and vagina.) Assessment and Plan Assessment: Colovaginal fistula. Patient will need to undergo surgery. Patient will undergo bowel prep today. We'll plan for sigmoid colectomy with possible colostomy tomorrow.
[2022-05-04] MEDS: PIPERACILLIN-TAZOBACTAM 3.375 GM in SODIUM CHLORIDE 0.9% 100 ML IVPB SCH (23:18)
[2022-05-05] MEDS: PIPERACILLIN-TAZOBACTAM 3.375 GM in SODIUM CHLORIDE 0.9% 100 ML IVPB SCH ×3 (06:04→23:18)
[2022-05-05] MEDS: SODIUM CHLORIDE 0.9% 1,000 ML IV SCH ×3 (06:05→23:19)
--- NOTE | 2022-05-05 06:16 | P.PN ---
Progress Note - Text Progress Note Date: 05/05/22 Hospital day #2. Patient is resting without new complaints. Patient was seen by Dr. Galan yesterday and he did review the CAT scan with the radiologist and felt was best to proceed with a bowel prep and surgical exploration/correction today. Patient's vital signs are stable, T-max was 99. Blood culture did return positive for gram positive cocci and patient is on Zosyn. CBC today is pending. I will continue to follow in Dr. Garcia's absence.
[2022-05-05 06:21] LABS: Basophils # (A) 0.1 k/uL (0-0.2); Basophils % (A) 0 %; Eosinophils # (A) 0.4 k/uL (0-0.7); Eosinophils % (A) 3 %; HCT 29.8 % (34.0-46.0); Lymphocytes # (A) 2.7 k/uL (1.0-4.8); Lymphocytes % (A) 21 %; MCH 28.9 pg (25.0-35.0); MCHC 33.4 g/dL (31.0-37.0); MCV 86.6 fL (80.0-100.0); Monocytes # (A) 0.6 k/uL (0-1.0); Monocytes % (A) 5 %; Neutrophils # (A) 8.8 k/uL (1.3-7.7); Neutrophils % (A) 70 %; Platelet Count 343 k/uL (150-450); RBC 3.45 m/uL (3.80-5.40); RDW 12.8 % (11.5-15.5); WBC 12.5 k/uL (3.8-10.6)
[2022-05-05] MEDS ORDERED: IV FLUID CONTINUATION 800 ML IV ONE (14:36)
[2022-05-05] MEDS ORDERED: ONDANSETRON 4 MG/2 ML VIAL ONE (14:39)
[2022-05-05] MEDS ORDERED: DEXAMETHASONE SOD PHOSPHATE 4 MG/ML 1 ML VIAL IV ONE (14:42)
[2022-05-05] MEDS ORDERED: MIDAZOLAM 2 MG/2 ML VIAL IV ONE (15:16)
--- NOTE | 2022-05-05 15:58 | P.ANPRN ---
Procedure Note - Anesthesia - Epidural/Spinal Epidural Continuous Time Out Performed: Yes Date of Procedure: 05/05/22 Procedure Start Time: 15:15 Procedure Stop Time: 15:22 Location of Patient: PreOp Indication: Acute Post-Operative Pain, Requested by Surgeon Sedation Type: Sedate with meaningful contact maintained Preparation: Sterile Dressing Position: Sitting Catheter: Indwelling Needle Guage: 18 Blood Aspirated: No Pain Paresthesia on Injection Noted: No Events: Uneventful and Well Tolerated (xylo 1.5% 3cc given as a test dose no adverse event noted)
[2022-05-05] MEDS ORDERED: NALOXONE 0.4 MG/ML 1 ML VIAL IV PRN ×2 (16:00→17:38)
[2022-05-05] MEDS ORDERED: GLYCOPYRROLATE 0.2 MG/ML 2 ML VIAL ONE (16:45)
[2022-05-05] MEDS ORDERED: PROPOFOL 10 MG/ML 20 ML VIAL IV ONE (16:45)
[2022-05-05] MEDS ORDERED: HYDROmorphone (PF) 1 MG/ML ONE (16:45)
[2022-05-05] MEDS ORDERED: ROCURONIUM 10 MG/ML (5 ML VIAL) IV ONE (16:45)
[2022-05-05] MEDS ORDERED: NEOSTIGMINE 1 MG/ML 10 ML VIAL ONE (16:45)
[2022-05-05] MEDS ORDERED: LIDOCAINE 2% INJ 20 MG/ML (2 ML VIAL) ONE (16:45)
[2022-05-05] MEDS ORDERED: SUCCINYLCHOLINE CHLORIDE 200 MG/10 ML VIAL IV ONE (16:45)
[2022-05-05] MEDS ORDERED: fentaNYL (PF) 50 MCG/ML 2 ML AMP ONE (16:45)
[2022-05-05] MEDS ORDERED: MIDAZOLAM 2 MG/2 ML VIAL ONE (16:45)
[2022-05-05] MEDS ORDERED: LACTATED RINGERS 1,000 ML IV ONE ×2 (17:30→18:35)
[2022-05-05] MEDS ORDERED: ROPIVACAINE 250 MG, HYDROMORPHONE (PF) 5 MG in SODIUM CHLORIDE 0.9% 200 ML EPIDURAL PRN (17:38)
--- NOTE | 2022-05-05 18:52 | P.OP ---
Date of Procedure: 05/05/22 Preoperative Diagnosis: Rectovaginal fistula Postoperative Diagnosis: Rectal perforation with pelvic abscess Procedure(s) Performed: Exploratory laparotomy Rectosigmoid resection Partial omentectomy Appendectomy Culture of pelvic abscess Anesthesia: VINNY Surgeon: Ángel Carbajal Estimated Blood Loss (ml): 50 Pathology: other (Rectosigmoid, appendix, omentum) Condition: stable Disposition: PACU Operative Findings: 5 mm perforation on rectum Pelvic abscess Description of Procedure: The patient's placed on the operating table in the supine position. She received general anesthesia. She was then placed in dorsal lithotomy position. Her abdomen was prepped and draped usual sterile fashion. A low midline skin was made. The abdominal wall was dissected using left cautery. The fascia was opened midline. The Bookwalter tract with wound. The patient's placed in steep Trendelenburg position. The bowel contents were packed away from the pelvis. The sigmoid colon was redundant and appeared to be stuck on the middle of the palpable pelvis. This was peeled away with gentle traction. There was a abscess cavity visualized on the pelvis. At this point the rectum was examined. There appeared to be a 5 mm hole in the low rectum. The bowel was very inflamed. The distal sigmoid colon was transected. And then the needles mesentery of the bowel was divided using the Enseal device. The perforation the rectum was very low. After dividing the mesial rectum it was felt that the perforation was so low that a contour stapler would not be able to divide the rectum so that the specimen included the perforation. At this point the rectum was transected with the contour stapler as low as it could be taken and then the rectal perforation was oversewn with 3-0 Vicryl suture. The left colon was then mobilized by dividing the white line of Toldt. The sigmoid colon was mobilized as well. A portion of omentum appeared to be nonviable and this was dissected free using the Enseal device. The appendix was long and near the pelvic absc ess. The portion of the appendix appeared to be inflamed this was inspected. The Bezalip appendix was divided with the Enseal device and then the appendectomy was performed using the BERNY stapler. A VITALY drain is placed in the pelvis and brought out through a stab incision in the right abdominal wall. This point the colostomy was brought out through a suitable spot on the left abdominal wall. The fascia was then closed with looped #1 PDS suture. Skin was closed salty. Several openings were made for Telfa emme to go in the incision. The colostomy then matured with 3-0 Vicryl suture. Sterile dressing was applied. The colostomy appliance applied. Patient top she will was sent to recovery room in stable condition.
[2022-05-05] MEDS ORDERED: ONDANSETRON 4 MG TAB PO PRN (20:06)
[2022-05-06] MEDS ORDERED: SODIUM CHLORIDE 0.9% 1,000 ML IV ONE ×2 (02:57→12:59)
[2022-05-06] MEDS ORDERED: SODIUM CHLORIDE 0.9% 500 ML 1,000 ML IV ONE (04:34)
[2022-05-06 04:58] LABS: Basophils % (A) 0 %; Eosinophils % (A) 0 %; HCT 30.4 % (34.0-46.0); HGB 9.9 gm/dL (11.4-16.0); Lymphocytes % (A) 12 %; MCH 28.8 pg (25.0-35.0); MCHC 32.7 g/dL (31.0-37.0); MCV 88.1 fL (80.0-100.0); Mean Platelet Volume 6.8; Monocytes % (A) 6 %; Neutrophils # (A) 13.1 k/uL (1.3-7.7); Neutrophils % (A) 81 %; Platelet Count 410 k/uL (150-450); RBC 3.45 m/uL (3.80-5.40); RDW 12.9 % (11.5-15.5); WBC 16.3 k/uL (3.8-10.6)
--- NOTE | 2022-05-06 06:08 | P.PN ---
Progress Note - Text Progress Note Date: 05/06/22 Hospital day #3. Postoperative day #1. Yesterday patient went to the operating room found to have a rectal perforation pelvic abscess. Patient subsequently had a diverting colostomy with appendectomy and repair of the perforation. Overnight patient was found to be hypotensive however her pulse was fine and she is having 0 pain so I think that this most likely is secondary to a very dense epidural. Urine output is excellent and she otherwise is feeling well. Dr. Carbajal gave her some fluid boluses. I did have the nursing staff contact anesthesia this morning and her epidural has been decreased so this should help. Hemoglobin is stable at 9.9 so I do not think this is hypotension from excess blood loss or ongoing bleeding. Exam shows a colostomy on the left side and a bandage midline. VITALY drain is draining serosanguineous red fluid. WBC is elevated at 16 today but that is expected from the abscess and recent surgery. Plan today is to continue to follow with general surgery. Dr. Mckeon will be seeing the patient this weekend and Dr. Garcia will see her on Monday.
[2022-05-06] MEDS: PIPERACILLIN-TAZOBACTAM 3.375 GM in SODIUM CHLORIDE 0.9% 100 ML IVPB SCH ×3 (06:50→22:55)
[2022-05-06] MEDS ORDERED: SODIUM CHLORIDE 0.9% 500 ML 500 ML IV ONE (07:09)
--- NOTE | 2022-05-06 07:20 | P.PN ---
Progress Note - Text 05/06/22 646am -year-old female status post explore laparotomy with Dr. Carbajal, patient has an epidural with the solution running at 0 mL an hour. Patient was receiving the epidural infusion at 10 mL an hour when she first went to the, she was having low blood pressure throughout the night and was being treated with IV boluses and rate decrease. Patient's pain score is 0 at this point, I asked the nurse to start the epidural in 2 mL an hour and give her 500 mL bolus. Her hemoglobin this morning is 9.1. My instruction to the nurse was that the rate should not go beyond 5 mL an hour.
[2022-05-06] MEDS: SODIUM CHLORIDE 0.9% 1,000 ML IV SCH ×2 (13:54→22:55)
--- NOTE | 2022-05-06 14:33 | P.PN ---
Subjective Progress Note Date: 05/06/22 CHIEF COMPLAINT: Rectal perforation with pelvic abscess HISTORY OF PRESENT ILLNESS: Patient is postop day #1 status post exploratory laparotomy, rectosigmoid sigmoid resection, partial omentectomy and appe ndectomy. Cultures were obtained. Cultures were obtained. Patient has been hypotensive. It was felt that is due to patient's epidural. Epidural has been decreased from 10-2. She has received 2.5 IV fluid boluses. And is scheduled for another IV fluid bolus. Systolic Blood pressure have been in the 70s to 80s and now. Blood pressures in the 90s. Patient does complain of pain but reports that it's tolerable. She denies any nausea or vomiting. Low-grade temps of 99.4 no tachycardia. WBC is up at 16.3 hemoglobin is from 10-9.9 platelets 410 VITALY drain with 90 mL serosanguineous output. Patient seen and examined with Dr. rosales PHYSICAL EXAM: VITAL SIGNS: Reviewed. GENERAL: Well-developed in no acute distress. HEENT: No sclera icterus. Extraocular movements grossly intact. Moist buccal mucosa. Head is atraumatic, normocephalic. ABDOMEN: Soft. Nondistended. Incision site with some saturation noted at the distal aspect of the dressing. VITALY drain serosanguineous output NEUROLOGIC: Alert and oriented. Cranial nerves II through XII grossly intact. ASSESSMENT: 1. Rectal perforation with pelvic abscess status post exploratory laparotomy, rectosigmoid sigmoid resection, partial omentectomy and appendectomy 2. Hypotension likely due to epidural PLAN: -We will give patient another 1 L fluid bolus -Maintenance fluids increased 125 mL per hour -Continue to monitor urine output -Continue monitor VITALY drain output -Incentive spirometer ordered -Keep patient nothing by mouth except for ice chips -When BP is better encourage patient to increase activity level -SCDs for DVT prophylaxis Physician Online Communications Manager note has been reviewed by physician. Signing provider agrees with the documented findings, assessment, and plan of care. Objective - Vital Signs Vital signs: Vital Signs Temp 99.4 F 05/06/22 07:15 Pulse 76 05/06/22 07:15 Resp 19 05/06/22 07:15 BP 91/56 05/06/22 07:15 Pulse Ox 97 05/06/22 08:20 FiO2 Intake & Output 05/05/22 05/06/22 05/06/22 18:59 06:59 18:59 Intake Total 1900 450 Output Total 450 515 Balance 1450 -65 Weight 108.862 kg 108.862 kg Intake: IV 1900 450 Output: Drainage 90 Right 90 Urine 400 425 Estimated Blood Loss 50 Other: Voiding Method Indwelling Catheter Indwelling Catheter # Voids 2 # Bowel Movements 3 - Labs CBC & Chem 7: 05/06/22 04:35 05/03/22 20:43 Labs: Abnormal Lab Results - Last 24 Hours (Table) 05/06/22 Range/Units 04:35 WBC 16.3 H (3.8-10.6) k/uL RBC 3.45 L (3.80-5.40) m/uL Hgb 9.9 L (11.4-16.0) gm/dL Hct 30.4 L (34.0-46.0) % Neutrophils # 13.1 H (1.3-7.7) k/uL Microbiology - Last 24 Hours (Table) 05/05/22 18:15 Gram Stain - Preliminary Appendix Wound Culture - Preliminary 05/05/22 18:15 Anaerobic Culture - Preliminary Appendix 05/04/22 02:57 Blood Culture Gram Stain - Preliminary Blood Blood Culture - Preliminary Staphylococcus epidermidis Staphylococcus lugdunenisis 05/04/22 03:03 Blood Culture Gram Stain - Preliminary Blood
[2022-05-06] MEDS: ACETAMINOPHEN TAB 325 MG TAB PO PRN (20:15)
[2022-05-07] MEDS: PIPERACILLIN-TAZOBACTAM 3.375 GM in SODIUM CHLORIDE 0.9% 100 ML IVPB SCH ×3 (06:27→23:30)
[2022-05-07] MEDS: SODIUM CHLORIDE 0.9% 1,000 ML IV SCH ×3 (06:28→23:04)
--- NOTE | 2022-05-07 07:02 | P.PN ---
Progress Note - Text Progress Note Date: 05/07/22 Patient doing well. Sitting in a chair w/o complaints of pain. Denies weakness or headache. Epidural site clean and dry. Epidural @ 9 ml/hr A/P POD#2 s/p exploratory laparotomy - doing well
--- NOTE | 2022-05-07 07:09 | P.PN ---
Progress Note - Text Progress Note Date: 05/07/22 Patient sleeping comfortably when initially seen. Complains of moderate pain. Denies weakness or headache. Epidural site clean and dry. Epidural @ 2 ml/hr. Blood pressure remains soft w/ SBP in 90s. Epidural at 2ml/hr likely not going to provide adequate pain relief. A/P POD#2 s/p ex lap - increase epidural up to 5 ml/hr if BP allows - continue medical management of BP
[2022-05-07 09:20] LABS: Basophils # (A) 0.06 X 10*3/uL (0.00-0.10); Basophils % (A) 0.3 %; Eosinophils # (A) 0.55 X 10*3/uL (0.04-0.35); Eosinophils % (A) 3.2 %; HCT 29.3 % (37.2-46.3); HGB 8.6 g/dL (12.0-15.0); Immature Grans, Automated 2.1 %; Lymphocytes # (A) 3.54 X 10*3/uL (0.90-5.00); Lymphocytes % (A) 20.4 %; MCH 28.1 pg (27.0-32.0); MCHC 29.4 g/dL (32.0-37.0); MCV 95.8 fL (80.0-97.0); Mean Platelet Volume 8.9 fL (9.5-12.2); Monocytes # (A) 1.13 X 10*3/uL (0.20-1.00); Monocytes % (A) 6.5 %; NRBC Per 100 WBC 0 /100 WBCS (0.0-0.0); Neutrophils # (A) 11.69 X 10*3/uL (1.80-7.70); Neutrophils % (A) 67.5 %; Platelet Count 367 X 10*3/uL (140-440); RBC 3.06 X 10*6/uL (4.10-5.20); RDW 13.2 % (11.5-14.5); WBC 17.33 X 10*3/uL (4.50-10.00)
[2022-05-07 09:25] LABS: African American GFR (CKD) 128.5 (60.0-200.0); Anion Gap 7.7 mmol/L (10.00-18.00); BUN/Creat Ratio 16.83 Ratio (12.00-20.00); Blood Urea Nitrogen 10.1 mg/dL (9.0-27.0); Calcium 8.4 mg/dL (8.7-10.3); Carbon Dioxide 27.3 mmol/L (20.0-27.5); Non-African American GFR(CKD) 110.9 (60.0-200.0)
--- NOTE | 2022-05-07 13:02 | P.PN ---
Subjective Progress Note Date: 05/07/22 Principal diagnosis: Status post exploratory laparotomy with diverting colostomy, appendectomy with repair of rectal perforation postoperative day #2 Patient is seen and examined today. She feels comfortable. She has not ambulated yet. She has not been up to a chair yet either. Her pain is been fairly well-controlled mostly with Tylenol. Her epidural is still running at 2 mL per hour. She feels like she may be passing some gas through the ostomy bag. She denies any nausea or vomiting. Objective - Vital Signs Vital signs: Vital Signs Temp 98.9 F 05/07/22 07:20 Pulse 80 05/07/22 08:45 Resp 13 05/07/22 08:45 BP 101/64 05/07/22 07:20 Pulse Ox 96 05/07/22 07:29 FiO2 Intake & Output 05/06/22 05/07/22 05/07/22 18:59 06:59 18:59 Intake Total 2749 Output Total 350 510 Balance 2399 -510 Intake: Intake, IV Titration 2749 Amount Piperacillin-Tazobactam 3 100 .375 gm In Sodium Chloride 0.9% 100 ml @ 25 mls/hr IVPB Q8H [facility] Rx#: [id number] Sodium Chloride 0.9% 1, 1150 000 ml @ 125 mls/hr IV . Q8H [facility] Rx#:[id number] Sodium Chloride 0.9% 1, 999 000 ml @ 999 mls/hr IV . Q1H1M [facility] Rx#:[id number] Sodium Chloride 0.9% 500 500 ml 500 ml @ 999 mls/hr IV .Q31M [facility] Rx#:[id number] Output: Drainage 100 60 Right 100 60 Urine 250 450 Other: Voiding Method Indwelling Catheter Indwelling Catheter Indwelling Catheter - Constitutional General appearance: Present: no acute distress - Gastrointestinal Gastrointestinal Comment(s): Dressings are dry and intact. Ostomy bag shows some gas and liquidy brown discharge but no actual stool. Right VITALY drain shows serosanguineous fluid. - Genitourinary Genitourinary Comment(s): Olmos catheter is draining clear urine - Labs CBC & Chem 7: 05/07/22 05:10 05/07/22 05:10 Labs: Abnormal Lab Results - Last 24 Hours (Table) 01/21/23 01/21/23 Range/Units 05:10 05:10 WBC 17.33 H (4.50-10.00) X 10*3/uL RBC 3.06 L (4.10-5.20) X 10*6/uL Hgb 8.6 L (12.0-15.0) g/dL Hct 29.3 L (37.2-46.3) % MCHC 29.4 L (32.0-37.0) g/dL MPV 8.9 L (9.5-12.2) fL Immature Gran # 0.36 H (0.00-0.04) X 10*3/uL Neutrophils # 11.69 H (1.80-7.70) X 10*3/uL Monocytes # 1.13 H (0.20-1.00) X 10*3/uL Eosinophils # 0.55 H (0.04-0.35) X 10*3/uL Anion Gap 7.70 L (10.00-18.00) mmol/L Calcium 8.4 L (8.7-10.3) mg/dL Microbiology - Last 24 Hours (Table) 05/05/22 18:15 Gram Stain - Preliminary Appendix Wound Culture - Preliminary Gram Neg Bacilli 05/04/22 02:57 Blood Culture Gram Stain - Final Blood Blood Culture - Final Staphylococcus epidermidis Staphylococcus lugdunenisis 05/04/22 03:03 Blood Culture Gram Stain - Final Blood Blood Culture - Final Coagulase Negative Staph Coagulase Negative Staph#2 Assessment and Plan Assessment: Status post exploratory laparotomy with diverting colostomy, appendectomy, and repair of rectal perforation postoperative day #2. Status post da Niranjan-assisted total laparoscopic hysterectomy with bilateral salpingo-oophorectomy postoperative day #10 Plan: Will defer to general surgery for advancing of diet and pain control. I discussed with her nurse to help her to get her up to a chair and moving around a little bit more. At this time Tylenol does seem to be helping with pain control for her. Patient voices no other concerns at this time.
[2022-05-07] MEDS ORDERED: SODIUM CHLORIDE 0.9% 2,000 ML IV ONE (13:50)
--- NOTE | 2022-05-07 15:20 | P.PN ---
Subjective Progress Note Date: 05/07/22 CHIEF COMPLAINT: Rectovaginal fistula with abscess HISTORY OF PRESENT ILLNESS: The patient is a 46-year-old female status post recent hysterectomy with complication of rectal perforation and pelvic abscess. She is status post drainage of pelvic abscess, descending colostomy creation. She had a moderate hypotension yesterday. Family is at bedside. Patient has not ambulated due to epidural and Olmos catheter. Patient's epidural flow due to persistent hypotension. ROS: No reports of nausea and vomiting. No bowel movements throughout ostomy. No new chest pain. No productive sputum. Morbid obesity due to excess calories, BMI 37.6. T-max 100.1 PHYSICAL EXAM: VITAL SIGNS: Reviewed CONSTITUTIONAL: Well developed and in no acute distress. EYES: Conjuctivae without sclera icterus. Extraocular movements grossly intact. HEAD, EARS, NOSE, THROAT: Moist buccal mucosa. Head is atraumatic, normocephalic. Hears conversational speech. No nasal drainage. RESPIRATORY: Non-labored respirations and equal bilateral excursions. CARDIOVASCULAR: Palpable 2+ radial pulses. ABDOMEN: I personally discontinued and external dressing. VITALY serosanguineous. No drainage. Has superficial packing along the incision. No signs of infection. MUSCULOSKELETAL: No gross deformity of the lower extremities noted. No clubbing. No cyanosis. SKIN: Good skin turgor. Well perfused. NEUROLOGIC: Cranial nerves II through XII grossly intact. No focal or lateralizing signs. PSYCH: Appropriate affect. Alert and oriented to person, place and time. : Urine concentrated, dark recurrent CLINICAL LABS: Reviewed. WBC trending upward 12.0-17.33. Hemoglobin trending downward 10.0-8.6 in 48 hours, anemia. ASSESSMENT: 1. Rectal perforation with pelvic abscess 2. Continue IV antibiotics 3. Persistent hypotension due to dehydration 4. Morbid obesity due to excess calories, BMI 37.6 5. Fever with leukocytosis, early sepsis 6. Chronic anemia PLAN: 1. Recommend infectious disease consultation due to persistent leukocytosis, fever despite antibiotics and gross contamination of case 2. Send cultures from [facility] 3. Patient has persistent hypotension due to dehydration with concentrated urine. Will give another 2 L fluid bolus 4. Patient is seeking removal of epidural. Nurse advised to contact anesthesia 5. Change surgical dressing with Optifoam antibacterial dressing 6. Start clear liquid diet and Entereg 7. All questions were addressed with patient and family Objective - Vital Signs Vital signs: Vital Signs Temp 98.9 F 05/07/22 07:20 Pulse 80 05/07/22 08:45 Resp 13 05/07/22 08:45 BP 101/64 05/07/22 07:20 Pulse Ox 96 05/07/22 07:29 FiO2 Intake & Output 05/06/22 05/07/22 05/07/22 18:59 06:59 18:59 Intake Total 2749 Output Total 350 510 Balance 2399 -510 Intake: Intake, IV Titration 2749 Amount Piperacillin-Tazobactam 3 100 .375 gm In Sodium Chloride 0.9% 100 ml @ 25 mls/hr IVPB Q8H [facility] Rx#: [id number] Sodium Chloride 0.9% 1, 1150 000 ml @ 125 mls/hr IV . Q8H [facility] Rx#:[id number] Sodium Chloride 0.9% 1, 999 000 ml @ 999 mls/hr IV . Q1H1M [facility] Rx#:[id number] Sodium Chloride 0.9% 500 500 ml 500 ml @ 999 mls/hr IV .Q31M [facility] Rx#:[id number] Output: Drainage 100 60 Right 100 60 Urine 250 450 Other: Voiding Method Indwelling Catheter Indwelling Catheter Indwelling Catheter - Labs CBC & Chem 7: 05/07/22 05:10 05/07/22 05:10 Labs: Abnormal Lab Results - Last 24 Hours (Table) 05/07/22 05/07/22 Range/Units 05:10 05:10 WBC 17.33 H (4.50-10.00) X 10*3/uL RBC 3.06 L (4.10-5.20) X 10*6/uL Hgb 8.6 L (12.0-15.0) g/dL Hct 29.3 L (37.2-46.3) % MCHC 29.4 L (32.0-37.0) g/dL MPV 8.9 L (9.5-12.2) fL Immature Gran # 0.36 H (0.00-0.04) X 10*3/uL Neutrophils # 11.69 H (1.80-7.70) X 10*3/uL Monocytes # 1.13 H (0.20-1.00) X 10*3/uL Eosinophils # 0.55 H (0.04-0.35) X 10*3/uL Anion Gap 7.70 L (10.00-18.00) mmol/L Calcium 8.4 L (8.7-10.3) mg/dL Microbiology - Last 24 Hours (Table) 05/05/22 18:15 Gram Stain - Preliminary Appendix Wound Culture - Preliminary Gram Neg Bacilli 05/04/22 02:57 Blood Culture Gram Stain - Final Blood Blood Culture - Final Staphylococcus epidermidis Staphylococcus lugdunenisis 05/04/22 03:03 Blood Culture Gram Stain - Final Blood Blood Culture - Final Coagulase Negative Staph Coagulase Negative Staph#2
[2022-05-07] MEDS: ALVIMOPAN 12 MG CAPSULE PO SCH ×2 (16:22→21:53)
--- NOTE | 2022-05-07 22:03 | P.CONS ---
History of Present Illness - Reason for Consult Consult date: 05/07/22 Pelvic abscess, rectal perforation Requesting physician: Kerry Combs - Chief Complaint Abdominal pain x few days - History of Present Illness Patient is a 46-year-old female who is status post hysterectomy completed on 04/27/2022 patient was subsequently discharged in stable condition patient presenting back to the [facility] ER on 04/30/2022 for evaluation of fever patient was feeling fatigued week and body aches and did have elevated white count patient apparently did have a negative workup in the ER and the patient was subsequently discharged home patient presenting back to the hospital on 05/03/2022 the patient was complaining of worsening symptoms she also reports which is not pain and fall of bubbling sensation in her vagina subsequently the patient noticed to have stool coming out of her vagina and did have a fever of 100.1 nausea but no vomiting some lower abdominal pain more of a dull aching to sharp 6 out of 10 no radiation with this and the patient was evaluated by the physician on arrival to the ER patient was afebrile the patient did have CT of abdominal pelvis that was concerning for possible rectal which is not a fistula and there was some bubbles in the bladder as well patient was evaluated by general surgery she was taken to the OR on 05/05/2022 in this patient status post laparotomy with rectosigmoid resection drainage of the pelvic abscess cultures are currently growing gram-negative patient also have a positive blood culture with staph patient is currently being treated with the Zosyn she was noticed to have worsening of the white count that has prompted this infectious disease consultation for management of antibiotic therapy. On today's evaluation that is 05/07/2022 patient did have a low-grade fever last evening of 100.1F afebrile currently patient has been combining of lower abdominal pain mostly incisional pain at this point she has been sharp 4-5-10 radiation some nausea but no vomiting no chest pain shortness of breath or cough Review of Systems Positive point has been mentioned in the HPI rest of the systems are negative Past Medical History Past Medical History: No Reported History Additional Past Medical History / Comment(s): depresion, anxiety History of Any Multi-Drug Resistant Organisms: None Reported Past Surgical History: Cholecystectomy, Hysterectomy, Tonsillectomy, Tubal Ligation, Uterine Ablation Additional Past Surgical History / Comment(s): D&C with NovaSure Past Anesthesia/Blood Transfusion Reactions: No Reported Reaction Past Psychological History: Anxiety, Depression Smoking Status: Former smoker Past Alcohol Use History: None Reported Additional Past Alcohol Use History / Comment(s): quit 25 yrs ago, started around age 15 and quit at age 22. Past Drug Use History: None Reported - Past Family History Father Family Medical History: CVA/TIA, Diabetes Mellitus Mother Additional Family Medical History / Comment(s): HEART ARRYTHMIA Medications and Allergies Home Medications Medication Instructions Recorded Confirmed Type Escitalopram [Lexapro] 20 mg PO DAILY 08/24/15 05/04/22 History Loratadine-Pseudoeph 10-240 mg 1 tab PO DAILY 04/22/22 05/04/22 History [Claritin-D 24 Hour] Allergies Allergy/AdvReac Type Severity Reaction Status Date / Time No Known Allergies Allergy Verified 05/04/22 07:59 Physical Exam Vitals: Vital Signs Temp Pulse Resp BP Pulse Ox 05/07/22 08:45 80 13 05/07/22 07:29 96 05/07/22 07:20 98.9 F 80 13 101/64 97 05/07/22 02:27 98.1 F 95 16 96/60 96 05/06/22 22:06 99.9 F H 05/06/22 19:48 100 05/06/22 19:05 100.1 F H 84 16 96/59 100 Intake and Output 05/06/22 05/07/22 05/07/22 22:59 06:59 14:59 Intake Total 2749 Output Total 350 510 Balance 2399 -510 Intake: Intake, IV Titration 2749 Amount Piperacillin-Tazobactam 3 100 .375 gm In Sodium Chloride 0.9% 100 ml @ 25 mls/hr IVPB Q8H [facility] Rx#: [id number] Sodium Chloride 0.9% 1, 1150 000 ml @ 125 mls/hr IV . Q8H [facility] Rx#:[id number] Sodium Chloride 0.9% 1, 999 000 ml @ 999 mls/hr IV . Q1H1M [facility] Rx#:[id number] Sodium Chloride 0.9% 500 500 ml 500 ml @ 999 mls/hr IV .Q31M [facility] Rx#:[id number] Output: Drainage 100 60 Right 100 60 Urine 250 450 Other: Voiding Method Indwelling Catheter Indwelling Catheter GENERAL DESCRIPTION: Middle-aged female lying in bed, no distress. No tachypnea or accessory muscle of respiration use. HEENT: Shows Pallor , no scleral icterus. Oral mucous membrane is dry. No pharyngeal erythema or thrush NECK: Trachea central, no thyromegaly. LUNGS: Unlabored breathing. Clear to auscultation anteriorly. No wheeze or crackle. HEART: S1, S2, regular rate and rhythm. No loud murmur ABDOMEN: Soft, midline abdominal incision with some gapping area but no foul- smelling drainage or redness colostomy with no output mildly tender to touch EXTREMITIES: No edema of feet. SKIN: No rash, no masses palpable. NEUROLOGICAL: The patient is awake, alert, oriented x3, mood and affect normal. Results CBC & Chem 7: 05/09/22 10:05 05/08/22 04:23 Labs: Abnormal Lab Results - Last 24 Hours (Table) 05/07/22 05/07/22 Range/Units 05:10 05:10 WBC 17.33 H (4.50-10.00) X 10*3/uL RBC 3.06 L (4.10-5.20) X 10*6/uL Hgb 8.6 L (12.0-15.0) g/dL Hct 29.3 L (37.2-46.3) % MCHC 29.4 L (32.0-37.0) g/dL MPV 8.9 L (9.5-12.2) fL Immature Gran # 0.36 H (0.00-0.04) X 10*3/uL Neutrophils # 11.69 H (1.80-7.70) X 10*3/uL Monocytes # 1.13 H (0.20-1.00) X 10*3/uL Eosinophils # 0.55 H (0.04-0.35) X 10*3/uL Anion Gap 7.70 L (10.00-18.00) mmol/L Calcium 8.4 L (8.7-10.3) mg/dL Microbiology - Last 24 Hours (Table) 05/05/22 18:15 Gram Stain - Preliminary Appendix Wound Culture - Preliminary Gram Neg Bacilli 05/04/22 02:57 Blood Culture Gram Stain - Final Blood Blood Culture - Final Staphylococcus epidermidis Staphylococcus lugdunenisis 05/04/22 03:03 Blood Culture Gram Stain - Final Blood Blood Culture - Final Coagulase Negative Staph Coagulase Negative Staph#2 Assessment and Plan (1) Bacteremia Current Visit: Yes Status: Acute Code(s): R78.81 - BACTEREMIA SNOMED Code(s): 9905409 (2) Pelvic abscess Current Visit: Yes Status: Acute Code(s): PEH0458 - SNOMED Code(s): 342398438 Plan: 1patient with a low-grade fever and worsening of the white count in this pat ient who recently did have a hysterectomy now with development of rectovaginal fistula and this patient was status post laparotomy on 05/05/2022 status post rectosigmoid resection of an appendectomy and drainage of the abscess which are currently growing gram-negative with ID sensitivities pending 2patient did have a positive blood culture with staph epi which could be seen contamination however is also growing staphylococcus lugdunesis which may be pathogenic and not covered with the current antibiotics 3blood cultures will be repeated document clearance of bacteremia and will also check inflammatory markers. 4we will continue with the Zosyn however keeping in mind high risk of nephrot oxicity from addition of vancomycin we will avoid vancomycin and start the patient on daptomycin We will follow on clinical condition and cultures to further adjust medication if needed Thank you for this consultation will follow this patient with you Time with Patient: Greater than 30
[2022-05-07] MEDS: DAPTOMYCIN IVPB SCH (23:01)
[2022-05-07] MEDS: SODIUM CHLORIDE 0.9% IVPB SCH (23:01)
[2022-05-08] MEDS: PIPERACILLIN-TAZOBACTAM 3.375 GM in SODIUM CHLORIDE 0.9% 100 ML IVPB SCH ×2 (08:18→17:00)
[2022-05-08] MEDS: ALVIMOPAN 12 MG CAPSULE PO SCH ×2 (08:18→21:39)
[2022-05-08] MEDS: SODIUM CHLORIDE 0.9% 1,000 ML IV SCH ×3 (08:20→21:48)
[2022-05-08 09:12] LABS: Basophils # (A) 0.04 X 10*3/uL (0.00-0.10); Basophils % (A) 0.3 %; Eosinophils # (A) 0.43 X 10*3/uL (0.04-0.35); Eosinophils % (A) 2.9 %; HCT 27.1 % (37.2-46.3); HGB 8.2 g/dL (12.0-15.0); Immature Grans, Automated 2.6 %; Lymphocytes # (A) 2.86 X 10*3/uL (0.90-5.00); MCH 28.3 pg (27.0-32.0); MCHC 30.3 g/dL (32.0-37.0); MCV 93.4 fL (80.0-97.0); Monocytes # (A) 0.78 X 10*3/uL (0.20-1.00); Monocytes % (A) 5.2 %; NRBC Per 100 WBC 0 /100 WBCS (0.0-0.0); Neutrophils # (A) 10.56 X 10*3/uL (1.80-7.70); Platelet Count 403 X 10*3/uL (140-440); WBC 15.06 X 10*3/uL (4.50-10.00)
[2022-05-08 09:59] LABS: African American GFR (CKD) 144.3 (60.0-200.0); Albumin 2.6 g/dL (3.8-4.9); Albumin/Globulin Ratio 1.36 (1.60-3.17); Anion Gap 9.2 mmol/L (10.00-18.00); BUN/Creat Ratio 12.2 Ratio (12.00-20.00); Blood Urea Nitrogen 5.2 mg/dL (9.0-27.0); Calcium 8.2 mg/dL (8.7-10.3); Carbon Dioxide 25.7 mmol/L (20.0-27.5); Globulin 1.9 g/dL (1.6-3.3); Non-African American GFR(CKD) 124.5 (60.0-200.0); Potassium 3.6 mmol/L (3.5-5.5); Total Bilirubin 0.5 mg/dL (0.30-1.20); Total Protein 4.5 g/dL (6.2-8.2)
--- NOTE | 2022-05-08 10:08 | P.PN ---
Subjective Progress Note Date: 05/08/22 Principal diagnosis: Status post exploratory laparotomy with diverting colostomy, appendectomy with repair of rectal perforation postoperative day #3 Patient was up to the chair yesterday. She does state her abdominal pain is a little worse now that she has been moving around. She is tolerating liquid diet and is passing some flatus through her ostomy. She is only been using Tylenol and the epidural at 2 mL/h for pain. She was unaware that she had Pawlet ordered. She denies any chest pain or shortness of breath. She denies any pain in her calves. Objective - Vital Signs Vital signs: Vital Signs Temp 99.2 F 05/08/22 07:52 Pulse 83 05/08/22 07:52 Resp 18 05/08/22 07:52 BP 106/66 05/08/22 07:52 Pulse Ox 96 05/08/22 07:52 FiO2 Intake & Output 05/07/22 05/08/22 05/08/22 18:59 06:59 18:59 Intake Total 120 740 Output Total 1000 150 Balance -880 590 Intake: Intake, IV Titration 150 Amount DAPTOmycin 660 mg In 50 Sodium Chloride 0.9% 50 ml @ 100 mls/hr IVPB Q24H [facility] Rx#:[id number] Piperacillin-Tazobactam 3 100 .375 gm In Sodium Chloride 0.9% 100 ml @ 25 mls/hr IVPB Q8H [facility] Rx#: [id number] Oral 120 590 Output: Drainage 50 Right 50 Urine 1000 100 Other: Voiding Method Indwelling Catheter Indwelling Catheter - Constitutional General appearance: Present: no acute distress - Gastrointestinal Gastrointestinal Comment(s): Incisions are dressed and dry. VITALY drain show serosanguineous discharge. General gastrointestinal: Present: normal bowel sounds - Labs CBC & Chem 7: 05/08/22 04:23 05/08/22 04:23 Labs: Abnormal Lab Results - Last 24 Hours (Table) 05/08/22 05/08/22 Range/Units 04:23 04:23 WBC 15.06 H (4.50-10.00) X 10*3/uL RBC 2.90 L (4.10-5.20) X 10*6/uL Hgb 8.2 L (12.0-15.0) g/dL Hct 27.1 L (37.2-46.3) % MCHC 30.3 L (32.0-37.0) g/dL MPV 9.0 L (9.5-12.2) fL Immature Gran # 0.39 H (0.00-0.04) X 10*3/uL Neutrophils # 10.56 H (1.80-7.70) X 10*3/uL Eosinophils # 0.43 H (0.04-0.35) X 10*3/uL Anion Gap 9.20 L (10.00-18.00) mmol/L BUN 5.2 L (9.0-27.0) mg/dL Creatinine 0.4 L (0.6-1.5) mg/dL Calcium 8.2 L (8.7-10.3) mg/dL AST 11 L (13-35) U/L Total Protein 4.5 L (6.2-8.2) g/dL Albumin 2.6 L (3.8-4.9) g/dL Albumin/Globulin Ratio 1.36 L (1.60-3.17) g/dL Microbiology - Last 24 Hours (Table) 05/05/22 18:15 Gram Stain - Preliminary Appendix Wound Culture - Preliminary Gram Neg Bacilli Assessment and Plan Assessment: Status post exploratory laparotomy with diverting colostomy, appendectomy, and repair of rectal perforation postoperative day #3 Status post da Niranjan-assisted total laparoscopic hysterectomy with bilateral salpingo-oophorectomy postoperative day #11 Plan: Appreciate infectious disease input. WBC trending downward today. Patient was advised that she does have Pawlet ordered if she needs something stronger for pain. Consider possible ibuprofen if okay with general surgery to help with inflammation. Will defer to anesthesia as far as when to discontinue epidural. Dr. Garcia will be back tomorrow and will see the patient tomorrow.
[2022-05-08 10:14] LABS: C Reactive Protein 14.7 mg/dL (0.00-0.80)
[2022-05-08] MEDS: HYDROcodone/APAP 7.5-325MG 1 EACH TAB PO PRN ×2 (10:53→18:53)
--- NOTE | 2022-05-08 10:54 | P.PN ---
Progress Note - Text Progress Note Date: 05/08/22 Patient doing well. Complains of moderate pain 5/10 w/ increase when moving. Denies weakness or headache. Epidural site clean and dry. Epidural @ 2 ml/hr. Blood pressure improved. Epidural at 2ml/hr likely not going to provide adequate pain relief. Either increase the rate if planning on keeping for the day or d/c. A/P POD#3 s/p ex lap - increase epidural up to 5 ml/hr or d/c
--- NOTE | 2022-05-08 15:49 | P.PN ---
Subjective Progress Note Date: 05/08/22 CHIEF COMPLAINT: Rectovaginal fistula with abscess HISTORY OF PRESENT ILLNESS: The patient is a 46-year-old female status post recent hysterectomy with complication of rectal perforation and pelvic abscess. She is status post drainage of pelvic abscess, descending colostomy creation. Her epidural was discontinued. She reports improvement of her hypotension. She is sitting up in bed. She is feeling better. Patient was seen by consultants infectious disease with adjustment of her antibiotics. ROS: No reports of nausea and vomiting. No bowel movements throughout ostomy. No new chest pain. No productive sputum. Morbid obesity due to excess calories, BMI 37.6. T-max 100.3 PHYSICAL EXAM: VITAL SIGNS: Reviewed CONSTITUTIONAL: Well developed and in no acute distress. EYES: Conjuctivae without sclera icterus. Extraocular movements grossly intact. HEAD, EARS, NOSE, THROAT: Moist buccal mucosa. Head is atraumatic, normocephalic. Hears conversational speech. No nasal drainage. RESPIRATORY: Non-labored respirations and equal bilateral excursions. CARDIOVASCULAR: Palpable 2+ radial pulses. ABDOMEN: New dressing applied clean dry and intact. VITALY serosanguineous. MUSCULOSKELETAL: No gross deformity of the lower extremities noted. No clubbing. No cyanosis. SKIN: Good skin turgor. Well perfused. NEUROLOGIC: Cranial nerves II through XII grossly intact. No focal or lateral izing signs. PSYCH: Appropriate affect. Alert and oriented to person, place and time. : Urine improved from dark concentrated to [place]. CLINICAL LABS: Reviewed. WBC trending downward 17.3-15.0 after new antibiotic adjustment. Hemoglobin trending downward 10.0-8.6, 8.2. ASSESSMENT: 1. Rectal perforation with pelvic abscess 2. Continue IV antibiotics 3. Persistent hypotension due to dehydration 4. Morbid obesity due to excess calories, BMI 37.6 5. Fever with leukocytosis, early sepsis 6. Chronic anemia PLAN: 1. Appreciate infectious disease consultation with adjustment of antibiotics. Patient started on daptomycin. 2. Additional 2 L fluid bolus for dehydration. Objective - Vital Signs Vital signs: Vital Signs Temp 98.1 F 05/08/22 14:00 Pulse 81 05/08/22 14:00 Resp 16 05/08/22 14:00 BP 106/55 05/08/22 14:00 Pulse Ox 97 05/08/22 14:00 FiO2 Intake & Output 01/21/23 01/22/23 01/22/23 18:59 06:59 18:59 Intake Total 120 740 Output Total 1000 150 Balance -880 590 Intake: Intake, IV Titration 150 Amount DAPTOmycin 660 mg In 50 Sodium Chloride 0.9% 50 ml @ 100 mls/hr IVPB Q24H [facility] Rx#:[id number] Piperacillin-Tazobactam 3 100 .375 gm In Sodium Chloride 0.9% 100 ml @ 25 mls/hr IVPB Q8H [facility] Rx#: [id number] Oral 120 590 Output: Drainage 50 Right 50 Urine 1000 100 Other: Voiding Method Indwelling Catheter Indwelling Catheter Indwelling Catheter - Labs CBC & Chem 7: 05/08/22 04:23 05/08/22 04:23 Labs: Abnormal Lab Results - Last 24 Hours (Table) 05/08/22 05/08/22 Range/Units 04:23 04:23 WBC 15.06 H (4.50-10.00) X 10*3/uL RBC 2.90 L (4.10-5.20) X 10*6/uL Hgb 8.2 L (12.0-15.0) g/dL Hct 27.1 L (37.2-46.3) % MCHC 30.3 L (32.0-37.0) g/dL MPV 9.0 L (9.5-12.2) fL Immature Gran # 0.39 H (0.00-0.04) X 10*3/uL Neutrophils # 10.56 H (1.80-7.70) X 10*3/uL Eosinophils # 0.43 H (0.04-0.35) X 10*3/uL Anion Gap 9.20 L (10.00-18.00) mmol/L BUN 5.2 L (9.0-27.0) mg/dL Creatinine 0.4 L (0.6-1.5) mg/dL Calcium 8.2 L (8.7-10.3) mg/dL AST 11 L (13-35) U/L C-Reactive Protein 14.70 H (0.00-0.80) mg/dL Total Protein 4.5 L (6.2-8.2) g/dL Albumin 2.6 L (3.8-4.9) g/dL Albumin/Globulin Ratio 1.36 L (1.60-3.17) g/dL Microbiology - Last 24 Hours (Table) 05/05/22 18:15 Gram Stain - Final Appendix Wound Culture - Final Escherichia coli 05/07/22 17:30 Body Fluid Culture - Preliminary [facility] Assessment and Plan (1) Rectal perforation Current Visit: Yes Status: Acute Code(s): K63.1 - PERFORATION OF INTESTINE (NONTRAUMATIC) SNOMED Code(s): 10090654 (2) Colostomy in place Current Visit: Yes Status: Acute Code(s): Z93.3 - COLOSTOMY STATUS SNOMED Code(s): 335273927 (3) Sepsis Current Visit: Yes Status: Acute Code(s): A41.9 - SEPSIS, UNSPECIFIED ORGANISM SNOMED Code(s): 78365887 (4) Hypotension Current Visit: Yes Status: Acute Code(s): I95.9 - HYPOTENSION, UNSPECIFIED SNOMED Code(s): 84050113 (5) Morbid (severe) obesity due to excess calories Current Visit: Yes Status: Acute Code(s): E66.01 - MORBID (SEVERE) OBESITY DUE TO EXCESS CALORIES SNOMED Code(s): 110178447 (6) Fever Current Visit: No Status: Acute Code(s): R50.9 - FEVER, UNSPECIFIED SNOMED Code(s): 709727684
[2022-05-08] MEDS ORDERED: SODIUM CHLORIDE 0.9% 2,000 ML IV ONE (15:50)
--- NOTE | 2022-05-08 17:55 | P.PN ---
Subjective Progress Note Date: 05/08/22 Principal diagnosis: Pelvic abscess Patient is a 46-year-old female who is status post hysterectomy completed on 04/27/2022, subsequently admitted to the hospital for rectovaginal fistula and perirectal abscess in this patient who is status post laparotomy with rectosigmoid resection and drainage of the pelvic abscess. On today's evaluation that is 05/08/2022, the patient is afebrile the patient is feeling slightly better patient abdominal pain has decreased about 4 out of 10 and no radiation, denies any nausea and vomiting some gas in the colostomy bag for chest pain shortness of breath or cough Objective - Vital Signs Vital signs: Vital Signs Temp 98.1 F 05/08/22 14:00 Pulse 81 05/08/22 14:00 Resp 16 05/08/22 14:00 BP 106/55 05/08/22 14:00 Pulse Ox 97 05/08/22 14:00 FiO2 Intake & Output 05/07/22 05/08/22 05/08/22 18:59 06:59 18:59 Intake Total 120 740 Output Total 1000 150 Balance -880 590 Intake: Intake, IV Titration 150 Amount DAPTOmycin 660 mg In 50 Sodium Chloride 0.9% 50 ml @ 100 mls/hr IVPB Q24H [facility] Rx#:[id number] Piperacillin-Tazobactam 3 100 .375 gm In Sodium Chloride 0.9% 100 ml @ 25 mls/hr IVPB Q8H [facility] Rx#: [id number] Oral 120 590 Output: Drainage 50 Right 50 Urine 1000 100 Other: Voiding Method Indwelling Catheter Indwelling Catheter Indwelling Catheter - Exam GENERAL DESCRIPTION: Middle-age female lying in bed in no distress RESPIRATORY SYSTEM: Unlabored breathing , decreased breath sounds at bases HEART: S1 S2 regular rate and rhythm , ABDOMEN: Soft , mild tenderness EXTREMITIES: No edema feet - Labs CBC & Chem 7: 05/08/22 04:23 05/08/22 04:23 Labs: Abnormal Lab Results - Last 24 Hours (Table) 05/08/22 05/08/22 Range/Units 04:23 04:23 WBC 15.06 H (4.50-10.00) X 10*3/uL RBC 2.90 L (4.10-5.20) X 10*6/uL Hgb 8.2 L (12.0-15.0) g/dL Hct 27.1 L (37.2-46.3) % MCHC 30.3 L (32.0-37.0) g/dL MPV 9.0 L (9.5-12.2) fL Immature Gran # 0.39 H (0.00-0.04) X 10*3/uL Neutrophils # 10.56 H (1.80-7.70) X 10*3/uL Eosinophils # 0.43 H (0.04-0.35) X 10*3/uL Anion Gap 9.20 L (10.00-18.00) mmol/L BUN 5.2 L (9.0-27.0) mg/dL Creatinine 0.4 L (0.6-1.5) mg/dL Calcium 8.2 L (8.7-10.3) mg/dL AST 11 L (13-35) U/L C-Reactive Protein 14.70 H (0.00-0.80) mg/dL Total Protein 4.5 L (6.2-8.2) g/dL Albumin 2.6 L (3.8-4.9) g/dL Albumin/Globulin Ratio 1.36 L (1.60-3.17) g/dL Microbiology - Last 24 Hours (Table) 05/05/22 18:15 Gram Stain - Final Appendix Wound Culture - Final Escherichia coli 05/07/22 17:30 Body Fluid Culture - Preliminary [facility] Assessment and Plan (1) Pelvic abscess Current Visit: Yes Status: Acute Code(s): VZK3298 - SNOMED Code(s): 014039974 (2) Bacteremia Current Visit: Yes Status: Acute Code(s): R78.81 - BACTEREMIA SNOMED Code(s): 8754959 Plan: 1patient with a low-grade fever and worsening of the white count in this patient who recently did have a hysterectomy now with development of rectovaginal fistula and this patient was status post laparotomy on 05/05/2022 status post rectosigmoid resection of an appendectomy and drainage of the abscess which are currently growing gram-negative , which has been finalized and E. coli that is sensitive pathogen 2patient did have a positive blood culture with staph epi which could be seen contamination however is also growing staphylococcus lugdunesis which may be pa thogenic 3blood cultures has been repeated document clearance of bacteremia . 4the patient is afebrile AND is trending down, we willl continue with the Zosyn and daptomycin, waiting for repeat cultures to finalize Time with Patient: Less than 30
[2022-05-09] MEDS: DAPTOMYCIN IVPB SCH ×2 (00:09→23:16)
[2022-05-09] MEDS: PIPERACILLIN-TAZOBACTAM 3.375 GM in SODIUM CHLORIDE 0.9% 100 ML IVPB SCH ×4 (00:09→23:59)
[2022-05-09] MEDS: SODIUM CHLORIDE 0.9% IVPB SCH ×2 (00:09→23:16)
[2022-05-09] MEDS: HYDROcodone/APAP 7.5-325MG 1 EACH TAB PO PRN ×3 (05:51→19:43)
[2022-05-09 10:26] LABS: Basophils % (A) 0 %; Eosinophils # (A) 0.3 k/uL (0-0.7); Eosinophils % (A) 2 %; HCT 27.6 % (34.0-46.0); HGB 9.1 gm/dL (11.4-16.0); Lymphocytes # (A) 1.6 k/uL (1.0-4.8); Lymphocytes % (A) 14 %; MCH 28.7 pg (25.0-35.0); MCHC 33.2 g/dL (31.0-37.0); MCV 86.5 fL (80.0-100.0); Mean Platelet Volume 6.9; Monocytes # (A) 0.4 k/uL (0-1.0); Monocytes % (A) 4 %; Neutrophils # (A) 8.5 k/uL (1.3-7.7); Neutrophils % (A) 78 %; Platelet Count 454 k/uL (150-450); RBC 3.19 m/uL (3.80-5.40); RDW 12.7 % (11.5-15.5); WBC 10.9 k/uL (3.8-10.6)
[2022-05-09] MEDS: SODIUM CHLORIDE 0.9% 1,000 ML IV SCH ×2 (10:44→15:28)
[2022-05-09] MEDS: ALVIMOPAN 12 MG CAPSULE PO SCH ×2 (10:45→19:43)
[2022-05-09] MEDS: HYDROmorphone 1 MG/ML 1 ML SYRINGE IVP PRN (10:45)
--- NOTE | 2022-05-09 10:57 | P.PN ---
Subjective Progress Note Date: 05/09/22 CHIEF COMPLAINT: Rectal perforation with pelvic abscess HISTORY OF PRESENT ILLNESS: Patient is postop day #4 status post exploratory laparotomy, rectosigmoid sigmoid resection, partial omentectomy and appe ndectomy. Patient did require 4 L of fluid over the weekend. Her blood pressure shown improvement. She's been seen by infectious disease. They've adjusted antibiotics. Her white count has improving. She is afebrile. Epidural discontinued over the weekend. WBC is down from 15-10.9 hemoglobin 9.1 platelets 454 VITALY drain appears cloudy serosanguineous in color. 35 mL output this morning. Wound culture growing E. coli. Ostomy with air. No stool. Patient reports that her urine output has improved and is less dark. Patient seen and examined with Dr. rosales PHYSICAL EXAM: VITAL SIGNS: Reviewed. GENERAL: Well-developed in no acute distress. HEENT: No sclera icterus. Extraocular movements grossly intact. Moist buccal mucosa. Head is atraumatic, normocephalic. ABDOMEN: Soft. Nondistended. Incisional dressing clean dry and intact. Ostomy with air. VITALY drain cloudy serosanguineous NEUROLOGIC: Alert and oriented. Cranial nerves II through XII grossly intact. ASSESSMENT: 1. Rectal perforation with pelvic abscess status post exploratory laparotomy, rectosigmoid sigmoid resection, partial omentectomy and appendectomy 2. Hypotension improved 3. Bacteremia PLAN: -Continue antibiotics -Continue current liquid diet -Continue IV fluids -Continue pain medication as needed -Antibiotics per infectious disease -Encourage patient to increase activity level -Encourage patient to use incentive spirometer -Continue monitor VITALY drain output -Subcu heparin added for DVT prophylaxis Physician Bowling Alley Operator note has been reviewed by physician. Signing provider agrees with the documented findings, assessment, and plan of care. Objective - Vital Signs Vital signs: Vital Signs Temp 98.0 F 05/09/22 07:03 Pulse 83 05/09/22 07:03 Resp 20 05/09/22 07:03 BP 100/65 05/09/22 07:03 Pulse Ox 96 05/09/22 07:33 FiO2 Intake & Output 05/08/22 05/09/22 05/09/22 18:59 06:59 18:59 Intake Total 480 590 Output Total 1220 2105 Balance -740 -1515 Intake: Oral 480 590 Output: Drainage 20 105 Right 20 105 Urine 1200 2000 Other: Voiding Method Indwelling Catheter Toilet # Voids 2 - Labs CBC & Chem 7: 05/09/22 10:05 05/08/22 04:23 Labs: Abnormal Lab Results - Last 24 Hours (Table) 05/09/22 Range/Units 10:05 WBC 10.9 H (3.8-10.6) k/uL RBC 3.19 L (3.80-5.40) m/uL Hgb 9.1 L (11.4-16.0) gm/dL Hct 27.6 L (34.0-46.0) % Plt Count 454 H (150-450) k/uL Neutrophils # 8.5 H (1.3-7.7) k/uL Microbiology - Last 24 Hours (Table) 05/07/22 17:30 Gram Stain - Preliminary [facility] Body Fluid Culture - Preliminary Gram Neg Bacilli 05/07/22 15:06 Blood Culture - Preliminary Blood No Growth after 24 hours 05/07/22 14:42 Blood Culture - Preliminary Blood No Growth after 24 hours 05/05/22 18:15 Gram Stain - Final Appendix Wound Culture - Final Escherichia coli
[2022-05-09 11:56] VITALS: BMI 37.5
--- NOTE | 2022-05-09 12:01 | P.PN ---
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 On today's evaluation that is 05/09/2022, the patient remains to be afebrile for more than 48 hours now, patient abdominal pain is about 4 out of 10 and no radiation, the patient denies any nausea and vomiting some gas in the colostomy bag but no output, the patient denies chest pain shortness of breath or cough Objective - Vital Signs Vital signs: Vital Signs Temp 98.0 F 05/09/22 07:03 Pulse 83 05/09/22 07:03 Resp 20 05/09/22 07:03 BP 100/65 05/09/22 07:03 Pulse Ox 96 05/09/22 07:33 FiO2 Intake & Output 05/08/22 05/09/22 05/09/22 18:59 06:59 18:59 Intake Total 480 590 Output Total 1220 2105 Balance -293 -3846 Intake: Oral 480 590 Output: Drainage 20 105 Right 20 105 Urine 1200 2000 Other: Voiding Method Indwelling Catheter Toilet # Voids 2 - Exam GENERAL DESCRIPTION: Middle-age female up in the chair RESPIRATORY SYSTEM: Unlabored breathing HEART: Deferred ABDOMEN: Midline incision is intact, no swelling redness or drainage EXTREMITIES: No swelling - Labs CBC & Chem 7: 05/09/22 10:05 05/08/22 04:23 Labs: Microbiology - Last 24 Hours (Table) 05/07/22 17:30 Gram Stain - Preliminary [facility] Body Fluid Culture - Preliminary Gram Neg Bacilli 05/07/22 15:06 Blood Culture - Preliminary Blood No Growth after 24 hours 05/07/22 14:42 Blood Culture - Preliminary Blood No Growth after 24 hours 05/05/22 18:15 Gram Stain - Final Appendix Wound Culture - Final Escherichia coli Assessment and Plan (1) Pelvic abscess Current Visit: Yes Status: Acute Code(s): VIV8114 - SNOMED Code(s): 11 2052892 (2) Bacteremia Current Visit: Yes Status: Acute Code(s): R78.81 - BACTEREMIA SNOMED Code(s): 8289042 Plan: 1patient with a low-grade fever and worsening of the white count in this patient who recently did have a hysterectomy now with development of rectovaginal fistula and this patient was status post laparotomy on 05/05/2022 status post rectosigmoid resection of an appendectomy and drainage of the abscess which are currently growing gram-negative , which has been finalized and E. coli that is sensitive pathogen 2patient did have a positive blood culture with staph epi which could be seen contamination however is also growing staphylococcus lugdunesis which may be pathogenic 3blood cultures has been repeated and so far negative 4the patient fever has resolved and her white count is down to normal at 10.8 today, the patient will continue with the Zosyn and daptomycin, and monitor clinical course closely Time with Patient: Less than 30
--- NOTE | 2022-05-09 12:29 | CDI ---
Documentation Clarification Form Date: 05/09/2022 12:28:25 PM From: Laury Navarro CCS, CCDS Admit Date: 05/04/2022 2:47:00 AM Patient Name: Katlyn Santana Visit Number: [id number] Discharge Date: ATTENTION: The Clinical Documentation Specialists (CDI) and [facility] Coding Staff appreciate your assistance in clarifying documentation. Please respond to the clarification below the line at the bottom and electronically sign. The CDI & [facility] Coding staff will review the response and follow-up if needed. Please note: Queries are made part of the Legal Health Record. If you have any questions, please contact the author of this message via ITS. Dr. Kerry Combs: Chronic Anemia is documented in the 05/07 & 05/08 Surgeon's Progress Notes without further specificity. Additional specificity regarding the Type & Acuity of Anemia is requested. History/Risk Factors per the 05/04 H/P: Anxiety, Depression, Former smoker. Cholecystectomy, Hysterectomy, Tonsillectomy, Tubal Ligation and Uterine Ablation. Clinical indicators: Presented to the ED on 05/03 with possible postoperative complications status post a hysterectomy on 04/27 with Gynecology, surgery went well but patient presented to the ED with fever, weakness and boy aches. WBC were 17.2, vaginal pain with stool coming from the vagina. Admit with possible Rectovaginal Fistula. 05/05 Procedure Diagnosis: Rectal perforation with pelvic abscess. Procedure: Exploratory Laparotomy, Rectosigmoid Resection, Partial Omentectomy and Appendectomy. Hemoglobin 05/03: 11.5. 05/04: 10/1. 05/05: 10.0. 05/06: 9.9. 05/07: 8.6. 05/08: 8.2. 05/09: 9.1. Hematocrit 05/03: 36.7. 05/04: 31.0. 05/05: 29.8. 05/06: 30.4. 05/07: 29.3. 05/08: 27.1. 05/09: 27.6. Treatment 05/04: Surgery consulted. IV Toradol 15 mg q6H/prn, IV Na Chl 1,000 mls @ 125 mls/hr q8H, IV Zosyn 100 mls @ 200 mls/hr x1. 05/05: IV Zofran 4 mg x1, IV Decadron 4 mg x1, IV Versed 2 mg x1, IV Lactated ringers 1,000 mls x1, Epidural for surgery, IV Dilaudid 1 mg q3H/prn, IV Na Chl 1,000 mls @ 999 mls/hr q1H x3, 500 mls @ 999 mls/hr q31M. 05/07: IV Na Chl 2,000 mls @ 999 mls/hr q2H x2, IV Daptomycin 660 mg 50 mls @ 100 mls/hr q2H. Please clarify the Type & Acuity of Anemia: [ ] Acute blood loss anemia [ ] Acute on chronic blood loss anemia [ ] Chronic blood loss anemia [ ] Hemolytic anemia [ ] Drug induced anemia [ ] Nutritional anemia [ ] Anemia of chronic disease, please specify: [ ] Unable to determine [ ] Other, please specify (Template Last Revised: May 2020) [X ] Acute blood loss anemia, KM 05/13/22 @ 17[facility]
--- NOTE | 2022-05-09 12:57 | P.PN ---
Progress Note - Text Progress Note Date: 05/09/22 S/P TLH BS using da madiha and Laparotomy with ostomy placement. She is feeling well today. Pain is improving. ambulating without difficulty. culture came back with e.coli. WBC count trending down and stable hgb. Abdomen: soft, ostomy site is clean and pink Will cont to follow patient with general surgery.
[2022-05-09] MEDS: HEPARIN SODIUM,PORCINE/PF 5,000 UNIT/0.5 ML SYRINGE SQ SCH (20:24)
[2022-05-10] MEDS: HYDROmorphone 1 MG/ML 1 ML SYRINGE IVP PRN (06:30)
[2022-05-10] MEDS: PIPERACILLIN-TAZOBACTAM 3.375 GM in SODIUM CHLORIDE 0.9% 100 ML IVPB SCH ×3 (06:31→23:39)
--- NOTE | 2022-05-10 07:55 | P.PN ---
Subjective Progress Note Date: 05/10/22 Principal diagnosis: Status post exploratory laparotomy with diverting colostomy, appendectomy with repair of rectal perforation postoperative day #5 Patient seen and examined at bedside. She is tolerating a clear liquid diet and passing flatus and stool through the ostomy. Her pain is well-controlled. She is ambulating and voiding without difficulty. She continues to be on IV antibiotics for the E. coli infection. Objective - Vital Signs Vital signs: Vital Signs Temp 98.7 F 05/10/22 01:50 Pulse 89 05/10/22 01:50 Resp 16 05/10/22 01:50 BP 136/74 05/10/22 01:50 Pulse Ox 93 L 05/10/22 01:50 FiO2 Intake & Output 05/09/22 05/10/22 05/10/22 18:59 06:59 18:59 Intake Total 1600 Output Total 60 40 Balance 1540 -40 Weight 108.862 kg Intake: Intake, IV Titration 1600 Amount Piperacillin-Tazobactam 3 100 .375 gm In Sodium Chloride 0.9% 100 ml @ 25 mls/hr IVPB Q8H [facility] Rx#: [id number] Sodium Chloride 0.9% 1, 1500 000 ml @ 125 mls/hr IV . Q8H [facility] Rx#:[id number] Output: Drainage 30 40 Right 30 40 Urine/Stool Mix 30 Other: Voiding Method Toilet Toilet - Exam Abdomen: Soft, nontender, dressing in place and ostomy site is pink and clean - Labs CBC & Chem 7: 05/09/22 10:05 05/08/22 04:23 Labs: Abnormal Lab Results - Last 24 Hours (Table) 05/09/22 Range/Units 10:05 WBC 10.9 H (3.8-10.6) k/uL RBC 3.19 L (3.80-5.40) m/uL Hgb 9.1 L (11.4-16.0) gm/dL Hct 27.6 L (34.0-46.0) % Plt Count 454 H (150-450) k/uL Neutrophils # 8.5 H (1.3-7.7) k/uL Microbiology - Last 24 Hours (Table) 05/07/22 15:06 Blood Culture - Preliminary Blood No Growth after 48 hours 05/07/22 14:42 Blood Culture - Preliminary Blood No Growth after 48 hours 05/05/22 18:15 Anaerobic Culture - Final Appendix Anaerobic Gm Negative Bacilli 05/07/22 17:30 Gram Stain - Preliminary [facility] Body Fluid Culture - Preliminary Gram Neg Bacilli Assessment and Plan (1) Colostomy in place Current Visit: Yes Status: Acute Code(s): Z93.3 - COLOSTOMY STATUS SNOMED Code(s): 078329464 (2) Bacteremia Current Visit: Yes Status: Acute Code(s): R78.81 - BACTEREMIA SNOMED Code(s): 1164983 Plan: 1. Continue care per surgery and infectious disease 2. Will continue to follow
[2022-05-10] MEDS: HEPARIN SODIUM,PORCINE/PF 5,000 UNIT/0.5 ML SYRINGE SQ SCH ×2 (09:05→20:25)
[2022-05-10] MEDS: SODIUM CHLORIDE 0.9% 1,000 ML IV SCH ×3 (09:05→13:47)
[2022-05-10] MEDS: ALVIMOPAN 12 MG CAPSULE PO SCH ×2 (09:05→20:25)
[2022-05-10] MEDS: HYDROcodone/APAP 7.5-325MG 1 EACH TAB PO PRN ×2 (09:15→19:49)
[2022-05-10 10:50] LABS: African American GFR (CKD) 146.8 (60.0-200.0); Blood Urea Nitrogen <1.4 mg/dL (9.0-27.0); Calcium 8.5 mg/dL (8.7-10.3); Carbon Dioxide 35.3 mmol/L (20.0-27.5); Chloride 102 mmol/L (96-109); Glucose 107 mg/dL (70-110); Non-African American GFR(CKD) 126.7 (60.0-200.0); Sodium 145 mmol/L (135-145)
[2022-05-10 11:41] LABS: Basophils # (A) 0.08 X 10*3/uL (0.00-0.10); Basophils % (A) 0.6 %; Eosinophils # (A) 0.27 X 10*3/uL (0.04-0.35); Eosinophils % (A) 2.2 %; HCT 30.1 % (37.2-46.3); HGB 8.8 g/dL (12.0-15.0); Immature Grans, Automated 2.3 %; Lymphocytes # (A) 2.84 X 10*3/uL (0.90-5.00); Lymphocytes % (A) 22.8 %; MCH 27.6 pg (27.0-32.0); MCHC 29.2 g/dL (32.0-37.0); MCV 94.4 fL (80.0-97.0); Mean Platelet Volume 9.7 fL (9.5-12.2); Monocytes # (A) 0.58 X 10*3/uL (0.20-1.00); Monocytes % (A) 4.7 %; NRBC Per 100 WBC 0 /100 WBCS (0.0-0.0); Neutrophils # (A) 8.37 X 10*3/uL (1.80-7.70); Neutrophils % (A) 67.4 %; Platelet Count 470 X 10*3/uL (140-440); RBC 3.19 X 10*6/uL (4.10-5.20); WBC 12.43 X 10*3/uL (4.50-10.00)
--- NOTE | 2022-05-10 11:45 | P.PN ---
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 On today's evaluation that is 05/10/2022, the patient continues to be afebrile, patient abdominal pahas decreased in intensity,the patient denies any nausea, patient mention that her diet has been advised and she has been tolerating so far no chest pain shortness of breath or cough Objective - Vital Signs Vital signs: Vital Signs Temp 98.9 F 05/10/22 07:13 Pulse 85 05/10/22 07:13 Resp 18 05/10/22 07:13 BP 106/69 05/10/22 07:13 Pulse Ox 90 L 05/10/22 07:13 FiO2 Intake & Output 05/09/22 05/10/22 05/10/22 18:59 06:59 18:59 Intake Total 1600 Output Total 60 40 Balance 1540 -40 Weight 108.862 kg Intake: Intake, IV Titration 1600 Amount Piperacillin-Tazobactam 3 100 .375 gm In Sodium Chloride 0.9% 100 ml @ 25 mls/hr IVPB Q8H [facility] Rx#: [id number] Sodium Chloride 0.9% 1, 1500 000 ml @ 125 mls/hr IV . Q8H [facility] Rx#:[id number] Output: Drainage 30 40 Right 30 40 Urine/Stool Mix 30 Other: Voiding Method Toilet Toilet Toilet - Exam GENERAL DESCRIPTION: Middle-age female up in the chair RESPIRATORY SYSTEM: Unlabored breathing , clear to auscultation anteriorly HEART: S1-S2 regular rate and rhythm ABDOMEN: Abdominal soft no tenderness EXTREMITIES: No swelling - Labs CBC & Chem 7: 05/09/22 10:05 05/10/22 06:05 Labs: Microbiology - Last 24 Hours (Table) 05/07/22 15:06 Blood Culture - Preliminary Blood No Growth after 48 hours 05/07/22 14:42 Blood Culture - Preliminary Blood No Growth after 48 hours 05/05/22 18:15 Anaerobic Culture - Final Appendix Anaerobic Gm Negative Bacilli 05/07/22 17:30 Gram Stain - Preliminary [facility] Body Fluid Culture - Preliminary Gram Neg Bacilli Assessment and Plan (1) Bacteremia Current Visit: Yes Status: Acute Code(s): R78.81 - BACTEREMIA SNOMED Code(s): 1597045 (2) Pelvic abscess Current Visit: Yes Status: Acute Code(s): NIA5446 - SNOMED Code(s): 561883300 Plan: 1patient with a low-grade fever and worsening of the white count in this patient who recently did have a hysterectomy now with development of rectovaginal fistula and this patient was status post laparotomy on 05/05/2022 status post rectosigmoid resection of an appendectomy and drainage of the abscess which are currently growing E. coli which is a sensitive pathogen along with anaerobic gram-negative bacilli 2patient did have a positive blood culture with staph epi which could be seen contamination however is also growing staphylococcus lugdunesis which may be pa thogenic however clinically doubt as the patient repeat blood culture has been negative so far, RN, micro-lab to get the sensitivities on staphylococcus lugdunesis 3the patient will continue with the Zosyn and daptomycin for now however the patient fever has resolved white count has normalized hopefully transition to oral antibiotic on discharge Time with Patient: Less than 30
--- NOTE | 2022-05-10 13:35 | P.PN ---
Subjective Progress Note Date: 05/10/22 CHIEF COMPLAINT: Rectal perforation with pelvic abscess HISTORY OF PRESENT ILLNESS: Patient is postop day #5 status post exploratory laparotomy, rectosigmoid sigmoid resection, partial omentectomy and appe ndectomy. Patient reports that she is feeling better today. Her pain is controlled. She is having flatus for prostate. No stool. VITALY drain serosanguineous output 40 mL. She's afebrile. WBC is up from 10.9-12.43 hemoglobin 8.8 platelets 470 sodium is 145 potassium is 3.0 creatinine 0.4 Patient seen and examined with Dr. rosales PHYSICAL EXAM: VITAL SIGNS: Reviewed. GENERAL: Well-developed in no acute distress. HEENT: No sclera icterus. Extraocular movements grossly intact. Moist buccal mucosa. Head is atraumatic, normocephalic. ABDOMEN: Soft. Nondistended. Incisional dressing clean dry and intact. Ostomy with air. VITALY drain cloudy serosanguineous NEUROLOGIC: Alert and oriented. Cranial nerves II through XII grossly intact. ASSESSMENT: 1. Rectal perforation with pelvic abscess status post exploratory laparotomy, rectosigmoid sigmoid resection, partial omentectomy and appendectomy 2. Hypotension improved 3. Bacteremia 4. Hypokalemia PLAN: -Advance diet to full liquids for lunch and a regular diet at dinner -Replace potassium -Discharge antibiotic recommendations per infectious disease -Anticipate discharge possibly tomorrow -Continue pain medication as needed -Encourage patient to increase activity level -Encourage patient to use incentive spirometer -Subcu heparin for DVT prophylaxis Physician Machine Container Washer note has been reviewed by physician. Signing provider agrees with the documented findings, assessment, and plan of care. Objective - Vital Signs Vital signs: Vital Signs Temp 98.9 F 05/10/22 12:21 Pulse 84 05/10/22 12:21 Resp 18 05/10/22 12:21 BP 121/71 05/10/22 12:21 Pulse Ox 97 05/10/22 12:21 FiO2 Intake & Output 05/09/22 05/10/22 05/10/22 18:59 06:59 18:59 Intake Total 1600 Output Total 60 40 Balance 1540 -40 Weight 108.862 kg Intake: Intake, IV Titration 1600 Amount Piperacillin-Tazobactam 3 100 .375 gm In Sodium Chloride 0.9% 100 ml @ 25 mls/hr IVPB Q8H [facility] Rx#: [id number] Sodium Chloride 0.9% 1, 1500 000 ml @ 125 mls/hr IV . Q8H [facility] Rx#:[id number] Output: Drainage 30 40 Right 30 40 Urine/Stool Mix 30 Other: Voiding Method Toilet Toilet Toilet - Labs CBC & Chem 7: 05/10/22 06:05 05/10/22 06:05 Labs: Abnormal Lab Results - Last 24 Hours (Table) 05/10/22 05/10/22 Range/Units 06:05 06:05 WBC 12.43 H (4.50-10.00) X 10*3/uL RBC 3.19 L (4.10-5.20) X 10*6/uL Hgb 8.8 L (12.0-15.0) g/dL Hct 30.1 L (37.2-46.3) % MCHC 29.2 L (32.0-37.0) g/dL Plt Count 470 H (140-440) X 10*3/uL Immature Gran # 0.29 H (0.00-0.04) X 10*3/uL Neutrophils # 8.37 H (1.80-7.70) X 10*3/uL Potassium 3.0 L (3.5-5.5) mmol/L Carbon Dioxide 35.3 H (20.0-27.5) mmol/L Anion Gap 7.70 L (10.00-18.00) mmol/L BUN <1.4 L (9.0-27.0) mg/dL Creatinine 0.4 L (0.6-1.5) mg/dL Calcium 8.5 L (8.7-10.3) mg/dL Microbiology - Last 24 Hours (Table) 05/07/22 17:30 Gram Stain - Final [facility] Body Fluid Culture - Final Escherichia coli 05/07/22 15:06 Blood Culture - Preliminary Blood No Growth after 48 hours 05/07/22 14:42 Blood Culture - Preliminary Blood No Growth after 48 hours 05/05/22 18:15 Anaerobic Culture - Final Appendix Anaerobic Gm Negative Bacilli
[2022-05-10] MEDS: POTASSIUM CHLORIDE ER 20 MEQ TAB.ER PO SCH ×3 (13:44→17:08)
[2022-05-10] MEDS: DAPTOMYCIN IVPB SCH (22:48)
[2022-05-10] MEDS: SODIUM CHLORIDE 0.9% IVPB SCH (22:48)
[2022-05-11] MEDS: SODIUM CHLORIDE 0.9% 1,000 ML IV SCH ×3 (00:41→18:29)
[2022-05-11] MEDS: HYDROcodone/APAP 7.5-325MG 1 EACH TAB PO PRN ×2 (03:06→16:50)
[2022-05-11] MEDS: PIPERACILLIN-TAZOBACTAM 3.375 GM in SODIUM CHLORIDE 0.9% 100 ML IVPB SCH ×3 (07:33→22:53)
[2022-05-11] MEDS: HEPARIN SODIUM,PORCINE/PF 5,000 UNIT/0.5 ML SYRINGE SQ SCH ×2 (08:58→20:54)
[2022-05-11] MEDS: ALVIMOPAN 12 MG CAPSULE PO SCH (08:58)
[2022-05-11 10:34] LABS: Basophils # (A) 0.1 k/uL (0-0.2); Basophils % (A) 1 %; Eosinophils # (A) 0.3 k/uL (0-0.7); Eosinophils % (A) 3 %; HCT 29.5 % (34.0-46.0); HGB 9.5 gm/dL (11.4-16.0); Lymphocytes # (A) 2.4 k/uL (1.0-4.8); Lymphocytes % (A) 19 %; MCH 28.3 pg (25.0-35.0); MCHC 32.2 g/dL (31.0-37.0); MCV 87.7 fL (80.0-100.0); Mean Platelet Volume 6.5; Monocytes # (A) 0.4 k/uL (0-1.0); Monocytes % (A) 3 %; Neutrophils # (A) 9.8 k/uL (1.3-7.7); Neutrophils % (A) 74 %; Platelet Count 512 k/uL (150-450); RBC 3.36 m/uL (3.80-5.40); RDW 12.9 % (11.5-15.5); WBC 13.2 k/uL (3.8-10.6)
[2022-05-11 12:11] LABS: African American GFR (CKD) >90 (>60 ml/min/1.73 sqM); Anion Gap 4 mmol/L; Blood Urea Nitrogen <2 mg/dL (7-17); Calcium 8.2 mg/dL (8.4-10.2); Carbon Dioxide 37 mmol/L (22-30); Chloride 101 mmol/L (98-107); Glucose 99 mg/dL (74-99); Non-African American GFR(CKD) >90 (>60 ml/min/1.73 sqM); Potassium 3.3 mmol/L (3.5-5.1); Sodium 142 mmol/L (137-145)
--- NOTE | 2022-05-11 12:37 | P.PN ---
Subjective Progress Note Date: 05/11/22 Principal diagnosis: Rectal perforation with pelvic abscess status post exploratory laparotomy, rectosigmoid sigmoid resection, partial omentectomy and appendectomy POD #6 16 examined today. Denies nausea, vomiting, chest pain, sugars of breath or calf pain. Her ostomy bag was changed today, she changed it and let the therapist watch her and help her along. There is some drainage from the lower part of her incision which is being handled by general surgery. Objective - Vital Signs Vital signs: Vital Signs Temp 99 F 05/11/22 12:05 Pulse 84 05/11/22 12:05 Resp 18 05/11/22 12:05 BP 121/79 05/11/22 12:05 Pulse Ox 94 L 05/11/22 12:05 FiO2 Intake & Output 05/10/22 05/11/22 05/11/22 18:59 06:59 18:59 Intake Total 1700 1650 Output Total 50 Balance 1700 1600 Weight 108.862 kg Intake: Intake, IV Titration 1700 1650 Amount DAPTOmycin 660 mg In 50 Sodium Chloride 0.9% 50 ml @ 100 mls/hr IVPB Q24H [facility] Rx#:[id number] Piperacillin-Tazobactam 3 200 100 .375 gm In Sodium Chloride 0.9% 100 ml @ 25 mls/hr IVPB Q8H [facility] Rx#: [id number] Sodium Chloride 0.9% 1, 1500 1500 000 ml @ 125 mls/hr IV . Q8H [facility] Rx#:[id number] Output: Drainage 50 Right 50 Other: Voiding Method Toilet Toilet Toilet # Voids 2 1 # Bowel Movements 1 - Exam Abdomen: Soft, nontender, dressing in place and ostomy site is pink and clean - Labs CBC & Chem 7: 05/11/22 09:39 05/11/22 09:39 Labs: Abnormal Lab Results - Last 24 Hours (Table) 05/11/22 05/11/22 Range/Units 09:39 09:39 WBC 13.2 H (3.8-10.6) k/uL RBC 3.36 L (3.80-5.40) m/uL Hgb 9.5 L (11.4-16.0) gm/dL Hct 29.5 L (34.0-46.0) % Plt Count 512 H (150-450) k/uL Neutrophils # 9.8 H (1.3-7.7) k/uL Potassium 3.3 L (3.5-5.1) mmol/L Carbon Dioxide 37 H (22-30) mmol/L BUN <2 L (7-17) mg/dL Creatinine 0.44 L (0.52-1.04) mg/dL Calcium 8.2 L (8.4-10.2) mg/dL Microbiology - Last 24 Hours (Table) 05/07/22 15:06 Blood Culture - Preliminary Blood No Growth after 72 hours 05/07/22 14:42 Blood Culture - Preliminary Blood No Growth after 72 hours 05/07/22 17:30 Gram Stain - Final [facility] Body Fluid Culture - Final Escherichia coli Assessment and Plan (1) Colostomy in place Current Visit: Yes Status: Acute Code(s): Z93.3 - COLOSTOMY STATUS SNOMED Code(s): 653348431 (2) Bacteremia Current Visit: Yes Status: Acute Code(s): R78.81 - BACTEREMIA SNOMED Code(s): 3722539 Plan: 1. Continue care per ID and general surgery. 2. Increase ambulation
[2022-05-11] MEDS ORDERED: POTASSIUM CHLORIDE ER 20 MEQ TAB.ER PO STA (13:43)
--- NOTE | 2022-05-11 13:48 | P.PN ---
Subjective Progress Note Date: 05/11/22 CHIEF COMPLAINT: Rectal perforation with pelvic abscess HISTORY OF PRESENT ILLNESS: Patient is postop day #6 status post exploratory laparotomy, rectosigmoid sigmoid resection, partial omentectomy and appe ndectomy. Patient had increased drainage from the incision site reported. Incisional meme have been changed by nursing staff. Patient did have a low- grade temp 99.9 last night. Her ostomy is functioning she does have stool. Denies any nausea vomiting. She reports pain is controlled. She is tolerating regular diet. Currently afebrile. White count did trend up from 12-. Cultures growing E. coli. Sodium is 142 potassium 3.3 creatinine 0.44 Patient seen and examined with Dr. rosales PHYSICAL EXAM: VITAL SIGNS: Reviewed. GENERAL: Well-developed in no acute distress. HEENT: No sclera icterus. Extraocular movements grossly intact. Moist buccal mucosa. Head is atraumatic, normocephalic. ABDOMEN: Soft. Nondistended. Incision with new meme in place. Ostomy with air. VITALY drain cloudy serosanguineous NEUROLOGIC: Alert and oriented. Cranial nerves II through XII grossly intact. ASSESSMENT: 1. Rectal perforation with pelvic abscess status post exploratory laparotomy, rectosigmoid sigmoid resection, partial omentectomy and appendectomy 2. Hypotension improved 3. Bacteremia 4. Hypokalemia PLAN: -Wound care order to change incisional meme daily with Aquacel silver rope -Continue regular diet -Replace potassium -Check magnesium level -Discharge antibiotic recommendations per infectious disease -Patient is not ready for discharge yet -Continue pain medication as needed -Encourage patient to increase activity level -Encourage patient to use incentive spirometer -Subcu heparin for DVT prophylaxis Physician Business Development Professional note has been reviewed by physician. Signing provider agrees with the documented findings, assessment, and plan of care. Objective - Vital Signs Vital signs: Vital Signs Temp 99 F 05/11/22 12:05 Pulse 84 05/11/22 12:05 Resp 18 05/11/22 12:05 BP 121/79 05/11/22 12:05 Pulse Ox 94 L 05/11/22 12:05 FiO2 Intake & Output 05/10/22 05/11/22 05/11/22 18:59 06:59 18:59 Intake Total 1700 1650 Output Total 50 Balance 1700 1600 Weight 108.862 kg Intake: Intake, IV Titration 1700 1650 Amount DAPTOmycin 660 mg In 50 Sodium Chloride 0.9% 50 ml @ 100 mls/hr IVPB Q24H [facility] Rx#:[id number] Piperacillin-Tazobactam 3 200 100 .375 gm In Sodium Chloride 0.9% 100 ml @ 25 mls/hr IVPB Q8H [facility] Rx#: [id number] Sodium Chloride 0.9% 1, 1500 1500 000 ml @ 125 mls/hr IV . Q8H [facility] Rx#:[id number] Output: Drainage 50 Right 50 Other: Voiding Method Toilet Toilet Toilet # Voids 2 1 # Bowel Movements 1 - Labs CBC & Chem 7: 05/11/22 09:39 05/11/22 09:39 Labs: Abnormal Lab Results - Last 24 Hours (Table) 05/11/22 05/11/22 Range/Units 09:39 09:39 WBC 13.2 H (3.8-10.6) k/uL RBC 3.36 L (3.80-5.40) m/uL Hgb 9.5 L (11.4-16.0) gm/dL Hct 29.5 L (34.0-46.0) % Plt Count 512 H (150-450) k/uL Neutrophils # 9.8 H (1.3-7.7) k/uL Potassium 3.3 L (3.5-5.1) mmol/L Carbon Dioxide 37 H (22-30) mmol/L BUN <2 L (7-17) mg/dL Creatinine 0.44 L (0.52-1.04) mg/dL Calcium 8.2 L (8.4-10.2) mg/dL Microbiology - Last 24 Hours (Table) 05/07/22 15:06 Blood Culture - Preliminary Blood No Growth after 72 hours 05/07/22 14:42 Blood Culture - Preliminary Blood No Growth after 72 hours 05/07/22 17:30 Gram Stain - Final [facility] Body Fluid Culture - Final Escherichia coli
--- NOTE | 2022-05-11 17:18 | P.PN ---
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 On today's evaluation that is 05/11/2022, the patient did have a low-grade fever of 99.9F last night, the patient is afebrile this morning, patient abdominal pain is currently controlled however the patient was noticed to have more drainage from the lower end of the incision be monitored by general surgery denies any nausea no vomiting no chest pain shortness of breath or cough Objective - Vital Signs Vital signs: Vital Signs Temp 98.4 F 05/11/22 07:10 Pulse 86 05/11/22 07:10 Resp 18 05/11/22 07:10 BP 116/63 05/11/22 07:10 Pulse Ox 93 L 05/11/22 07:10 FiO2 Intake & Output 05/10/22 05/11/22 05/11/22 18:59 06:59 18:59 Intake Total 1700 1650 Output Total 50 Balance 1700 1600 Intake: Intake, IV Titration 1700 1650 Amount DAPTOmycin 660 mg In 50 Sodium Chloride 0.9% 50 ml @ 100 mls/hr IVPB Q24H WHIT Rx#:[id number] Piperacillin-Tazobactam 3 200 100 .375 gm In Sodium Chloride 0.9% 100 ml @ 25 mls/hr IVPB Q8H WHIT Rx#: [id number] Sodium Chloride 0.9% 1, 1500 1500 000 ml @ 125 mls/hr IV . Q8H WHIT Rx#:[id number] Output: Drainage 50 Right 50 Other: Voiding Method Toilet Toilet # Voids 2 - Exam GENERAL DESCRIPTION: Middle-age female up in the chair RESPIRATORY SYSTEM: Unlabored breathing , clear to auscultation anteriorly HEART: S1-S2 regular rate and rhythm ABDOMEN: Abdominal soft no tenderness EXTREMITIES: No swelling - Labs CBC & Chem 7: 05/11/22 09:39 05/11/22 09:39 Labs: Abnormal Lab Results - Last 24 Hours (Table) 05/10/22 05/10/22 Range/Units 06:05 06:05 WBC 12.43 H (4.50-10.00) X 10*3/uL RBC 3.19 L (4.10-5.20) X 10*6/uL Hgb 8.8 L (12.0-15.0) g/dL Hct 30.1 L (37.2-46.3) % MCHC 29.2 L (32.0-37.0) g/dL Plt Count 470 H (140-440) X 10*3/uL Immature Gran # 0.29 H (0.00-0.04) X 10*3/uL Neutrophils # 8.37 H (1.80-7.70) X 10*3/uL Potassium 3.0 L (3.5-5.5) mmol/L Carbon Dioxide 35.3 H (20.0-27.5) mmol/L Anion Gap 7.70 L (10.00-18.00) mmol/L BUN <1.4 L (9.0-27.0) mg/dL Creatinine 0.4 L (0.6-1.5) mg/dL Calcium 8.5 L (8.7-10.3) mg/dL Microbiology - Last 24 Hours (Table) 05/07/22 15:06 Blood Culture - Preliminary Blood No Growth after 72 hours 05/07/22 14:42 Blood Culture - Preliminary Blood No Growth after 72 hours 05/07/22 17:30 Gram Stain - Final [facility] Body Fluid Culture - Final Escherichia coli Assessment and Plan (1) Bacteremia Current Visit: Yes Status: Acute Code(s): R78.81 - BACTEREMIA SNOMED Code(s): 2442568 (2) Pelvic abscess Current Visit: Yes Status: Acute Code(s): TQP5022 - SNOMED Code(s): 702206056 Plan: 1patient with a low-grade fever and worsening of the white count in this patient who recently did have a hysterectomy now with development of rectovaginal fistula and this patient was status post laparotomy on 05/05/2022 status post rectosigmoid resection of an appendectomy and drainage of the abscess which are currently growing E. coli which is a sensitive pathogen along with anaerobic gram-negative bacilli 2patient did have a positive blood culture with staph epi which could be seen contamination however is also growing staphylococcus lugdunesis which may be pathogenic however clinically doubt as the patient repeat blood culture has been negative so far, sensitivities on staphylococcus lugdunesis currently pending 3the patient to continue with the Zosyn and daptomycin and monitor clinical course closely if any new fever or worsening white count and may benefit from repeat CT abdominal pelvis
[2022-05-11] MEDS: ACETAMINOPHEN TAB 325 MG TAB PO PRN (20:54)
[2022-05-11] MEDS: DAPTOMYCIN IVPB SCH (22:53)
[2022-05-11] MEDS: SODIUM CHLORIDE 0.9% IVPB SCH (22:53)
[2022-05-12] MEDS: HYDROcodone/APAP 7.5-325MG 1 EACH TAB PO PRN ×2 (03:01→15:02)
[2022-05-12] MEDS: SODIUM CHLORIDE 0.9% 1,000 ML IV SCH ×2 (03:01→08:31)
[2022-05-12 07:14] VITALS: RESP 18
[2022-05-12] MEDS: HEPARIN SODIUM,PORCINE/PF 5,000 UNIT/0.5 ML SYRINGE SQ SCH (08:31)
[2022-05-12 09:42] LABS: Basophils # (A) 0.05 X 10*3/uL (0.00-0.10); Basophils % (A) 0.4 %; Eosinophils # (A) 0.43 X 10*3/uL (0.04-0.35); Eosinophils % (A) 3.6 %; HCT 26.9 % (37.2-46.3); HGB 8.3 g/dL (12.0-15.0); Immature Grans, Automated 2.4 %; Lymphocytes # (A) 3.51 X 10*3/uL (0.90-5.00); Lymphocytes % (A) 29.5 %; MCH 28.3 pg (27.0-32.0); MCHC 30.9 g/dL (32.0-37.0); MCV 91.8 fL (80.0-97.0); Mean Platelet Volume 8.7 fL (9.5-12.2); NRBC Per 100 WBC 0.2 /100 WBCS (0.0-0.0); Neutrophils # (A) 7.02 X 10*3/uL (1.80-7.70); Neutrophils % (A) 59.1 %; Platelet Count 460 X 10*3/uL (140-440); RBC 2.93 X 10*6/uL (4.10-5.20); RDW 13.2 % (11.5-14.5); WBC 11.89 X 10*3/uL (4.50-10.00)
[2022-05-12 10:09] LABS: African American GFR (CKD) 146.8 (60.0-200.0); Anion Gap 9.2 mmol/L (10.00-18.00); BUN/Creat Ratio 7.25 Ratio (12.00-20.00); Blood Urea Nitrogen 2.9 mg/dL (9.0-27.0); C Reactive Protein 8.9 mg/dL (0.00-0.80); Calcium 8.5 mg/dL (8.7-10.3); Carbon Dioxide 32.8 mmol/L (20.0-27.5); Magnesium 1.9 mg/dL (1.5-2.4); Non-African American GFR(CKD) 126.7 (60.0-200.0); Potassium 3.4 mmol/L (3.5-5.5)
--- NOTE | 2022-05-12 10:17 | P.PN ---
Subjective Progress Note Date: 05/12/22 Patient seen and examined. Dressing changed and the incision is being packed with silver dressing. There is purulent drainage from the incision. ostomy site is functional and in tact.Pain is well controlled. Tolerating reg diet Objective - Vital Signs Vital signs: Vital Signs Temp 98 F 05/12/22 07:13 Pulse 75 05/12/22 07:13 Resp 18 05/12/22 07:13 BP 124/72 05/12/22 07:13 Pulse Ox 96 05/12/22 08:33 FiO2 21 05/12/22 08:33 Intake & Output 05/11/22 05/12/22 05/12/22 18:59 06:59 18:59 Intake Total 1525 Output Total 20 20 Balance -20 1505 Weight 108.862 kg Intake: Intake, IV Titration 1525 Amount DAPTOmycin 660 mg In 50 Sodium Chloride 0.9% 50 ml @ 100 mls/hr IVPB Q24H WHIT Rx#:[id number] Piperacillin-Tazobactam 3 100 .375 gm In Sodium Chloride 0.9% 100 ml @ 25 mls/hr IVPB Q8H WHIT Rx#: [id number] Sodium Chloride 0.9% 1, 1375 000 ml @ 125 mls/hr IV . Q8H WHIT Rx#:[id number] Output: Drainage 20 20 Right 20 20 Other: Voiding Method Toilet Toilet # Voids 1 2 # Bowel Movements 1 - Exam Incision is open in 3 spots with good granulation tissue. The lowest hole probes 4cm deep. When they are probed, there is purulent drainage. The ostomy is intact and functional. - Labs CBC & Chem 7: 05/12/22 05:10 05/12/22 05:10 Labs: Abnormal Lab Results - Last 24 Hours (Table) 05/11/22 05/11/22 05/12/22 Range/Units 09:39 09:39 05:10 WBC 13.2 H 11.89 H (3.8-10.6) k/uL RBC 3.36 L 2.93 L (3.80-5.40) m/uL Hgb 9.5 L 8.3 L (11.4-16.0) gm/dL Hct 29.5 L 26.9 L (34.0-46.0) % MCHC 30.9 L (32.0-37.0) g/dL Plt Count 512 H 460 H (150-450) k/uL MPV 8.7 L (9.5-12.2) fL Absolute Nucleated RBC 0.02 H (0.00-0.00) X 10*3/uL Immature Gran # 0.28 H (0.00-0.04) X 10*3/uL Neutrophils # 9.8 H (1.3-7.7) k/uL Eosinophils # 0.43 H (0.04-0.35) X 10*3/uL NRBC/100 WBC Diff 0.2 H (0.0-0.0) /100 WBCS Sodium (135-145) mmol/L Potassium 3.3 L (3.5-5.1) mmol/L Carbon Dioxide 37 H (22-30) mmol/L Anion Gap (10.00-18.00) mmol/L BUN <2 L (7-17) mg/dL Creatinine 0.44 L (0.52-1.04) mg/dL BUN/Creatinine Ratio (12.00-20.00) Ratio Calcium 8.2 L (8.4-10.2) mg/dL C-Reactive Protein (0.00-0.80) mg/dL 05/12/22 Range/Units 05:10 WBC (3.8-10.6) k/uL RBC (3.80-5.40) m/uL Hgb (11.4-16.0) gm/dL Hct (34.0-46.0) % MCHC (32.0-37.0) g/dL Plt Count (150-450) k/uL MPV (9.5-12.2) fL Absolute Nucleated RBC (0.00-0.00) X 10*3/uL Immature Gran # (0.00-0.04) X 10*3/uL Neutrophils # (1.3-7.7) k/uL Eosinophils # (0.04-0.35) X 10*3/uL NRBC/100 WBC Diff (0.0-0.0) /100 WBCS Sodium 146 H (135-145) mmol/L Potassium 3.4 L (3.5-5.1) mmol/L Carbon Dioxide 32.8 H (22-30) mmol/L Anion Gap 9.20 L (10.00-18.00) mmol/L BUN 2.9 L (7-17) mg/dL Creatinine 0.4 L (0.52-1.04) mg/dL BUN/Creatinine Ratio 7.25 L (12.00-20.00) Ratio Calcium 8.5 L (8.4-10.2) mg/dL C-Reactive Protein 8.90 H (0.00-0.80) mg/dL Microbiology - Last 24 Hours (Table) 05/07/22 15:06 Blood Culture - Preliminary Blood No Growth after 96 hours 05/07/22 14:42 Blood Culture - Preliminary Blood No Growth after 96 hours 05/05/22 18:15 Anaerobic Culture - Final Appendix Anaerobic Gm Negative Bacilli Anaerobic Gm Negative Bacilli#2 Assessment and Plan (1) Colostomy in place Current Visit: Yes Status: Acute Code(s): Z93.3 - COLOSTOMY STATUS SNOMED Code(s): 130758806 (2) Bacteremia Current Visit: Yes Status: Acute Code(s): R78.81 - BACTEREMIA SNOMED C ode(s): 4870324 Plan: 1. cont packing the incision and changing the dressing
[2022-05-12] MEDS: HYDROmorphone 1 MG/ML 1 ML SYRINGE IVP PRN (10:36)
[2022-05-12 12:31] VITALS: BP 112/73; PULSE 71; TEMP 97.5
[2022-05-12] MEDS ORDERED: POTASSIUM CHLORIDE ER 20 MEQ TAB.ER PO STA (12:32)
--- NOTE | 2022-05-12 12:42 | P.DS ---
Providers Date of admission: 05/04/22 02:47 Expected date of discharge: 05/12/22 Attending physician: Mabel Garcia Consults: 05/04/22 02:45 Consult Physician Urgent Consulting Provider: Ángel Carbajal Consult Reason/Comments: rectovaginal fistula (consult placed per Dr. Elliott) Do you want consulting provider notified?: Yes 05/07/22 13:52 Consult Physician Urgent Consulting Provider: Lizbeth Burgess Consult Reason/Comments: Pelvic abscess, rectal perforation Do you want consulting provider notified?: Yes Primary care physician: Whit Henry Hospital Course: Discharge diagnosis 1. Rectal perforation with pelvic abscess status post exploratory laparotomy, rectosigmoid sigmoid resection, partial omentectomy and appendectomy 2. Hypotension improved 3. Bacteremia 4. Hypokalemia receiving supplement prior to discharge Hospital course This is a 46-year-old female who underwent previous laparoscopic robotic- assisted hysterectomy. This was done with Dr. Garcia approximately one week ago. Patient states that 3 days postoperatively she had a fever of 102 and abdominal pain. Patient developed feculent drainage and air passing through her vagina. Computed tomography scan showed evidence of sigmoid colon inflammation. No definite abscess. There were concerns for colovesical fistula. Patient was taken to the OR and found to have a rectal perforation with pelvic abscess and is now status post exploratory laparotomy, rectosigmoid sigmoid resection, partial omentectomy and appendectomy. Patient also Bacteremia. She's Been Followed by Infectious Disease. Infectious Diseases Recommending 10 Days of Cipro and Flagyl at Discharge. Patient's Pain Is Controlled. She Is Tolerating Diet. She's Afebrile. Her White Count Is Trending Downwards. Patient Is Stable for Discharge. She Does Have Purulent Drainage from the Incision Site. And will continue local wound care with changing incisional meme daily and continuing antibiotics. Patient will be discharged with VITALY drain which is having a purulent sanguinous discharge. Patient is medical stable for discharge. Please refer to chart for any further details. Physician Geotechnical Engineering Technician note has been reviewed by physician. Signing provider agrees with the documented findings, assessment, and plan of care. Patient Condition at Discharge: Stable Plan - Discharge Summary Discharge Rx Participant: Yes New Discharge Prescriptions: New Ciprofloxacin HCl [Cipro] 500 mg PO Q12HR 10 Days #20 tab HYDROcodone/APAP 7.5-325MG [[place] 7.5-325] 1 tab PO Q6HR PRN 3 Days #12 tab PRN Reason: Pain metroNIDAZOLE [Flagyl] 500 mg PO TID #30 tab Continue Loratadine-Pseudoeph 10-240 mg [Claritin-D 24 Hour] 1 tab PO DAILY Discontinued Escitalopram [Lexapro] 20 mg PO DAILY Discharge Medication List Loratadine-Pseudoeph 10-240 mg [Claritin-D 24 Hour] 1 tab PO DAILY 04/22/22 [History] Ciprofloxacin HCl [Cipro] 500 mg PO Q12HR 10 Days #20 tab 05/12/22 [Rx] HYDROcodone/APAP 7.5-325MG [[place] 7.5-325] 1 tab PO Q6HR PRN 3 Days #12 tab 05/12/22 [Rx] metroNIDAZOLE [Flagyl] 500 mg PO TID #30 tab 05/12/22 [Rx] Follow up Appointment(s)/Referral(s): Whit Henry MD [Primary Care Provider] - 1-2 days [facility] [NON-STAFF] - 1 Week [facility], [NON-STAFF] - 1-2 Days (Will call to set up appointment any questions please call agency. ) Lizbeth Burgess MD [STAFF PHYSICIAN] - 1 Week Ángel Carbajal MD [STAFF PHYSICIAN] - 1 Week Mabel Garcia DO [Doctor of Osteopathic Medicine] - 1 Week Patient Instructions/Handouts: Colostomy Care (GEN) Activity/Diet/Wound Care/Special Instructions: Colostomy Care Recommendations: Last Pouching system change: 05.11.2022 Mrs Santana will receive the following ostomy products from [facility] on discharge: One piece cut to fit [facility] #[id number] (three from the hospital) No sting prep pads (12) Ostomy powder (1) Emily seals (3) Place the half [place] emily seal in the skin crease area Empty the pouch when it is 1/3 to 1/3 full. Change the entire pouching system every 3 - 5 days, unless otherwise directed by the surgeon or Home Health Nurse Eventually Mrs Santana will be able to utilize disposable pouches in 2 -4 weeks pending progress . Mrs Santana will also be receiving sample supplies from [facility] to home in 5 - 7 days Keep a log of VITALY drain output and bring with you to your follow-up appointment Milk/strip drains 2-3 times a day No driving while taking [place] No lifting over 10 pounds Shower daily. No soaking or tub baths for 2 weeks Very light activity until you are reevaluated at your follow up appointment with your surgeon Change incisional dressing and meme daily Hold taking Lexapro until completed antibiotics. The Lexapro interacts with the Cipro Discharge Disposition: HOME SELF-CARE
--- NOTE | 2022-05-12 14:16 | P.PN ---
Subjective Progress Note Date: 05/12/22 Principal diagnosis: Pelvic abscess Patient is a 46-year-old female who is status post hysterectomy completed on 04/27/2022, subsequently admitted to the hospital for rectovaginal fistula and perirectal abscess in this patient who is status post laparotomy with rectosigmoid resection and drainage of the pelvic abscess. On today's evaluation that is 05/12/2022, the patient is afebrile this morning, patient abdominal pain is currently controlled and drainage from the lower end of the incision has decreased in intensity per the patient, the patient denies any nausea no vomiting no chest pain shortness of breath or cough Objective - Vital Signs Vital signs: Vital Signs Temp 98 F 05/12/22 07:13 Pulse 75 05/12/22 07:13 Resp 18 05/12/22 07:13 BP 124/72 05/12/22 07:13 Pulse Ox 96 05/12/22 08:33 FiO2 21 05/12/22 08:33 Intake & Output 05/11/22 05/12/22 05/12/22 18:59 06:59 18:59 Intake Total 1525 Output Total 20 20 Balance -20 1505 Weight 108.862 kg Intake: Intake, IV Titration 1525 Amount DAPTOmycin 660 mg In 50 Sodium Chloride 0.9% 50 ml @ 100 mls/hr IVPB Q24H WHIT Rx#:[id number] Piperacillin-Tazobactam 3 100 .375 gm In Sodium Chloride 0.9% 100 ml @ 25 mls/hr IVPB Q8H WHIT Rx#: [id number] Sodium Chloride 0.9% 1, 1375 000 ml @ 125 mls/hr IV . Q8H WHIT Rx#:[id number] Output: Drainage 20 20 Right 20 20 Other: Voiding Method Toilet Toilet Toilet # Voids 1 2 # Bowel Movements 1 - Exam GENERAL DESCRIPTION: Middle-age female up in the chair RESPIRATORY SYSTEM: Unlabored breathing , clear to auscultation anteriorly HEART: S1-S2 regular rate and rhythm ABDOMEN: Abdominal soft no tenderness EXTREMITIES: No swelling - Labs CBC & Chem 7: 05/12/22 05:10 05/12/22 05:10 Labs: Abnormal Lab Results - Last 24 Hours (Table) 05/11/22 05/12/22 05/12/22 Range/Units 09:39 05:10 05:10 WBC 11.89 H (4.50-10.00) X 10*3/uL RBC 2.93 L (4.10-5.20) X 10*6/uL Hgb 8.3 L (12.0-15.0) g/dL Hct 26.9 L (37.2-46.3) % MCHC 30.9 L (32.0-37.0) g/dL Plt Count 460 H (140-440) X 10*3/uL MPV 8.7 L (9.5-12.2) fL Absolute Nucleated RBC 0.02 H (0.00-0.00) X 10*3/uL Immature Gran # 0.28 H (0.00-0.04) X 10*3/uL Eosinophils # 0.43 H (0.04-0.35) X 10*3/uL NRBC/100 WBC Diff 0.2 H (0.0-0.0) /100 WBCS Sodium 146 H (135-145) mmol/L Potassium 3.3 L 3.4 L (3.5-5.1) mmol/L Carbon Dioxide 37 H 32.8 H (22-30) mmol/L Anion Gap 9.20 L (10.00-18.00) mmol/L BUN <2 L 2.9 L (7-17) mg/dL Creatinine 0.44 L 0.4 L (0.52-1.04) mg/dL BUN/Creatinine Ratio 7.25 L (12.00-20.00) Ratio Calcium 8.2 L 8.5 L (8.4-10.2) mg/dL C-Reactive Protein 8.90 H (0.00-0.80) mg/dL Microbiology - Last 24 Hours (Table) 05/07/22 15:06 Blood Culture - Preliminary Blood No Growth after 96 hours 05/07/22 14:42 Blood Culture - Preliminary Blood No Growth after 96 hours 05/05/22 18:15 Anaerobic Culture - Final Appendix Anaerobic Gm Negative Bacilli Anaerobic Gm Negative Bacilli#2 Assessment and Plan (1) Bacteremia Current Visit: Yes Status: Acute Code(s): R78.81 - BACTEREMIA SNOMED Code(s): 2019055 (2) Pelvic abscess Current Visit: Yes Status: Acute Code(s): XOT8809 - SNOMED Code(s): 385769215 Plan: 1patient with a low-grade fever and worsening of the white count in this patient who recently did have a hysterectomy now with development of rectovagina l fistula and this patient was status post laparotomy on 05/05/2022 status post rectosigmoid resection of an appendectomy and drainage of the abscess which are currently growing E. coli which is a sensitive pathogen along with anaerobic gram-negative bacilli 2patient did have a positive blood culture with staph epi which could be seen contamination however is also growing staphylococcus lugdunesis which may be pathogenic however clinically doubt as the patient repeat blood culture has been negative so far, sensitivities on staphylococcus lugdunesis currently pending 3the patient seemed to have shown clinical improvement as the patient has been afebrile the patient white count is 11,000 patient did grew E. coli from abdominal specimen which is sensitive pathogen and discharge antibiotic will be Cipro and Flagyl 10 days once the patient is stable for discharge from surgical standpoint Time with Patient: Less than 30
[2022-05-12] MEDS ORDERED: ESCITALOPRAM 20 MG TAB PO SCH (15:00)
--- NOTE | 2022-05-13 14:08 | CDI ---
Documentation Clarification Form Date: 05/13/2022 1:26:19 PM From: Claudine Bee Phone: Admit Date: 05/04/2022 2:47:00 AM Patient Name: Katlyn Santana Visit Number: [id number] Discharge Date: 05/12/2022 3:14:00 PM ATTENTION: The Clinical Documentation Specialists (CDI) and [facility] Coding Staff appreciate your assistance in clarifying documentation. Please respond to the clarification below the line at the bottom and electronically sign. The CDI & [facility] Coding staff will review the response and follow-up if needed. Please note: Queries are made part of the Legal Health Record. If you have any questions, please contact the author of this message via ITS. Dr. Mabel Garcia The patient has "WBC is elevated at 16 today but that is expected from the abscess and recent surgery" per Dr. Elliott's Progress Note 05/06/22. Further, sepsis is documented per Dr. Combs's Progress Note 05/07/22. For each diagnosis, documentation must be clear to determine if the condition was present at the time of the patients inpatient admission or developed during the hospital stay. Additional clarification regarding the sepsis is requested. History/Risk Factors: 46yo F, recent hysterectomyw perforation of intestine, pelvic abscess, morbid obesity, persistenthypotension, dehydration, morbid obesity, E. coli sepsis, ABLA on chronic anemia Clinical Indicators: WBC: 14.4 in ED 05/12 05/11 05/10 05/09 05/08 05/07 05/06 05/05 WBC (k/uL) 11.89H 13.2H 12.43H 10.9H 15.06H 17.33H 16.3H 12.5H Lactic acid: 0.9 Blood cultures: Blood Culture 05/12/2022 05:10 05/07/2022 15:06 05/07/2022 14:42 Blood Culture NG24 NG120 NG120 Blood Culture NG24 NG120 NG120 Blood Culture NG24 NG120 [id number] Vitals signs: 05/11/22 Temp 99 F Pulse 84 Resp 18 BP 121/79 Pulse Ox 94 05/07/22 Temp 98.9 F Pulse 80 Resp 13 BP 101/64 Pulse Ox 96 05/03/22 98.3 F 79 16 100/69 97 Treatment: ID Consult: drainage of the abscesswhich are currently growing gram-negative with ID sensitivities pending. 2 patient did have apositive blood culturewithstaphepi which could be seen contamination however is also growingstaphylococcuslugdunesis which may be pathogenic andnotcovered with the current antibiotics. 3 blood cultures will be repeated documentclearanceofbacteremiaand will also checkinflammatorymarkers. 4 we will continue with the Zosyn however keeping in mind high risk of nephrotoxicity from addition of vancomycin we will avoid vancomycin and start the patient on daptomycin Antibiotics: She continues to be on IV antibiotics for theE. coliinfection. IV Bolus: epidural in 2 mL an hour and give her 500 mL bolus then up to 2L Definition of Present on Admission (POA): A diagnosis present at the time the order for admission to inpatient status was written. Please clarify if the sepsis was POA [ yes ] Sepsis, present on admission [ ] Sepsis, developed during stay, not present on admission [ ] Sepsis ruled out [ ] Septic Shock [ ] Other, please specify [ ] Unable to determine SIRS Criteria: 2 or more of the following may indicate SIRS Temperature < 96.8F (36C) or > 101.0F (38.3C) Heart Rate > 90 bpm Respiratory Rate > 20 breaths/min or PaCO2 < 32 mmHg White Blood Cell Count > 12,000 or < 4,000 cells/mm3 or > 10% bands (Template Last Reviewed: April 2022) MTDD
== END 2022-05-12 15:14 | disposition home health service (06) | DRG 853 ==
LOC: EC 15:41 → 5NMEDONC 05-04 02:47
PROVIDERS: ADMIT Obstetrics & Gynecology; ATTEND Obstetrics & Gynecology
PROC: 0DBU0ZZ Excision of Omentum, Open Approach (ICD-10-PCS; 2022-05-05)
PROC: 0DTJ0ZZ Resection of Appendix, Open Approach (ICD-10-PCS; 2022-05-05)
PROC: 0D1N0Z4 Bypass Sigmoid Colon to Cutaneous, Open Approach (ICD-10-PCS; 2022-05-05)
PROC: 3E0R3BZ Introduction of Anesthetic Agent into Spinal Canal, Percutaneous Approach (ICD-10-PCS; 2022-05-05)
PROC: 00HU33Z Insertion of Infusion Device into Spinal Canal, Percutaneous Approach (ICD-10-PCS; 2022-05-05)
PROC: 0DTN0ZZ Resection of Sigmoid Colon, Open Approach (ICD-10-PCS; principal; 2022-05-05 15:30)
DX: A41.51 Sepsis due to Escherichia coli [E. coli] (principal); K63.1 Perforation of intestine (nontraumatic); K68.11 Postprocedural retroperitoneal abscess; D62 Acute posthemorrhagic anemia; N82.3 Fistula of vagina to large intestine; I95.9 Hypotension, unspecified; E66.01 Morbid (severe) obesity due to excess calories; E86.0 Dehydration; Z68.37 Body mass index [BMI] 37.0-37.9, adult; N73.8 Other specified female pelvic inflammatory diseases; B95.7 Other staphylococcus as the cause of diseases classified elsewhere; E87.6 Hypokalemia; Y83.8 Other surgical procedures as the cause of abnormal reaction of the patient, or of later complication, without mention of misadventure at the time of the procedure; Z20.822 Contact with and (suspected) exposure to COVID-19; Z87.891 Personal history of nicotine dependence; Z90.710 Acquired absence of both cervix and uterus; Z79.899 Other long term (current) drug therapy
CPT/HCPCS: 36415; 74177; 80048; 80053; 81001; 83605; 83735; 84145; 85025; 86140; 86850; 86900; 86901; 87040; 87070; 87075; 87077; 87186; 87205; 88302; 88305; 88307; 94760; 96365; 96375; 99284

== ENCOUNTER → 2022-06-07 | Outpatient (CLI) | payer BC ==
[2022-06-07 22:49] LABS: African American GFR (CKD) 134.3 (60.0-200.0); Albumin 4.1 g/dL (3.8-4.9); Albumin/Globulin Ratio 1.56 (1.60-3.17); Anion Gap 9.7 mmol/L (10.00-18.00); BUN/Creat Ratio 20.57 Ratio (12.00-20.00); Blood Urea Nitrogen 10.8 mg/dL (9.0-27.0); C Reactive Protein 0.8 mg/dL (0.00-0.80); Calcium 9.8 mg/dL (8.7-10.3); Globulin 2.6 g/dL (1.6-3.3); Non-African American GFR(CKD) 115.8 (60.0-200.0); Potassium 4.9 mmol/L (3.5-5.5); Total Bilirubin 0.2 mg/dL (0.30-1.20); Total Protein 6.7 g/dL (6.2-8.2)
== END | disposition home or self-care (01) ==
LOC: LABWHC1 14:29
PROVIDERS: ATTEND Internal Medicine Infectious Disease
DX: L02.91 Cutaneous abscess, unspecified (principal)
CPT/HCPCS: 36415; 80053; 86140